=== PATIENT | female | born 1960 | race Caucasian/White ===

== ENCOUNTER 2016-11-16 15:08 | Emergency (ER) | payer OTHER | END 2016-11-16 16:30 | disposition home or self-care (01) | DX: S20.212A Contusion of left front wall of thorax, initial encounter (principal); W01.0XXA Fall on same level from slipping, tripping and stumbling without subsequent striking against object, initial encounter; E11.9 Type 2 diabetes mellitus without complications; Z87.891 Personal history of nicotine dependence ==

== ENCOUNTER 2017-09-16 11:13 | Day surgery (SDC) | payer MEDICARE, OTHER ==
[2017-09-16] MEDS ORDERED: LACTATED RINGERS 1,000 ML IV ONE ×2 (13:15→13:43)
[2017-09-16] MEDS ORDERED: BENZOCAINE/TETRACAINE/BUTAMBEN SPRAY 56 GM TOP ONE (13:28)
[2017-09-16] MEDS ORDERED: fentaNYL 100 MCG/2 ML VIAL IVP ONE (13:43)
[2017-09-16] MEDS ORDERED: MIDAZOLAM 2 MG/2 ML VIAL IVP ONE (13:43)
[2017-09-16 15:19] VITALS: BP 132/87
== END 2017-09-16 11:14 | disposition home or self-care (01) ==
LOC: SDS 11:13
PROVIDERS: ATTEND Surgery
PROC: 0DB68ZX Excision of Stomach, Via Natural or Artificial Opening Endoscopic, Diagnostic (ICD-10-PCS; principal; 2017-09-16 12:30)
PROC: 0DJD8ZZ Inspection of Lower Intestinal Tract, Via Natural or Artificial Opening Endoscopic (ICD-10-PCS; 2017-09-16 12:30)
DX: R13.10 Dysphagia, unspecified (principal); Z12.11 Encounter for screening for malignant neoplasm of colon; K64.8 Other hemorrhoids; Z98.84 Bariatric surgery status; Z87.891 Personal history of nicotine dependence; K21.9 Gastro-esophageal reflux disease without esophagitis
CPT/HCPCS: 43239; A9270; G0121; J7120

== ENCOUNTER 2017-09-21 10:40 | Outpatient (CLI) | payer MEDICARE, OTHER ==
--- NOTE | 2017-09-21 17:43 | Nuclear Medicine Report ---
EXAM: GASTRIC EMPTYING STUDY EXAM DATE: 09/21/2017 03:59 PM. CLINICAL HISTORY: Dysphagia. COMPARISON: None. TECHNIQUE: A standard meal was radiolabeled with 1 mCi Tc-99m sulfur colloid according to protocol. F ollowing the p.o. administration of this meal, the patient underwent multiple static images over the abdomen from the anterior and posterior AMHARIC projections, at approximately 0, 1, 2, and 4 hours follow ing the ingestion of the meal. Region of interest analysis was employed, and percent emptied/percent remaining of the meal was calculated using both the geometric mean and decay corrections. FINDINGS: Calculations demonstrate: TIME (hours) Percent remaining. Normal values for percent remaining. 1 hour: 42.8% (30-90%) 2 hours: 29.2% (0-60%) 4 hours: 14% (0-10%) IMPRESSION: No scintigraphic evidence of delayed gastric emptying on 1 and 2 hour imaging. Mild to mi nimal delayed gastric emptying at 4 hours. [facility] Referring Provider Line: [phone] SITE ID: [id number]
== END 2017-09-21 10:41 | disposition home or self-care (01) ==
LOC: DI 10:40
PROVIDERS: ATTEND Surgery
DX: R13.10 Dysphagia, unspecified (principal)
CPT/HCPCS: 78265; A9541

== ENCOUNTER 2018-10-14 10:24 | Emergency (ER) | payer MEDICARE, OTHER ==
[2018-10-14 10:55] LABS: BILIRUBIN,URINE NEGATIVE (NEGATIVE); GLUCOSE, URINE (UA) NEGATIVE (NEGATIVE); KETONES,URINE (UA) TRACE mg/dL (NEGATIVE); LEUKOCYTE ESTERASE, URINE NEGATIVE (NEGATIVE); NITRITE,URINE POSITIVE (NEGATIVE); OCCULT BLOOD,URINE TRACE-INTA (NEGATIVE); PH,URINE 5.5 PH (5.0-7.5); PROTEIN,URINE 30 mg/dL (NEGATIVE); UROBILINOGEN,URINE 0.2 (NORMAL) E.U./dL (NORMAL)
[2018-10-14 11:00] LABS: CLARITY,URINE CLOUDY (CLEAR)
[2018-10-14 11:05] LABS: BACTERIA,URINE Moderate /HPF (None Seen); SQUAMOUS EPITHELIAL CELL,UR FEW Squamous (<= Few)
[2018-10-14] MEDS ORDERED: ONDANSETRON ODT 4 MG TABLET TL STA (11:23)
[2018-10-14] MEDS ORDERED: PHENAZOPYRIDINE 100 MG TABLET PO STA (11:23)
--- NOTE | 2018-10-14 11:26 | ED Physician Documentation ---
PD HPI ABD PAIN - Stated complaint Stated Complaint: RT SIDE PAIN - Chief complaint Chief Complaint: General - History obtained from History obtained from: Patient - History of Present Illness Timing - onset: How many days ago (2) Timing - duration: Days (2) Timing - details: Still present Quality: Aching Location: All over / everywhere Associated symptoms: Nausea. No: Vomiting - Additional information Additional information: The patient is a 58-year-old female with a history of type II diabetes, and S/P gastric bypass in 2011, who presents with abdominal pain that started 2 days ago and continues today. She reports right-sided abdominal pain, with nausea and an acid taste in her mouth, but no vomiting. She also reports sore throat. She had a headache last night for which she took Fioricet. She does not have a headache today. She denies fever, cough, or dysuria. She reports that her urine was very dark in color this morning. Review of Systems Constitutional: denies: Fever, Chills Ears: denies: Tinnitus/ringing Nose: denies: Congestion Throat: reports: Sore throat Cardiac: denies: Chest pain / pressure, Palpitations Respiratory: denies: Dyspnea, Cough GI: reports: Abdominal Pain, Nausea. denies: Vomiting, Diarrhea : reports: Other (Dark-colored urine.). 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 09/16/15 09/16/17 DULoxetine [Cymbalta] 20 mg PO DAILY 10/20/15 09/16/17 Butalbital/Aspirin/Caffeine 1 each PO DAILY PRN 09/15/17 09/16/17 [Fiorinal 50-325-40 mg Capsule] Potassium Gluconate 99 mg PO DAILY 09/15/17 09/16/17 clonazePAM [Clonazepam] 1 mg PO BID 09/15/17 09/16/17 Olopatadine HCl 1 drops EACHEYE PRN PRN 09/16/17 09/16/17 Promethazine [Phenergan] 25 mg PO PRN PRN 09/16/17 09/16/17 Varenicline Tartrate [Chantix] 1 mg PO BID 09/16/17 09/16/17 Nitrofurantoin Monohyd/M-Cryst 100 mg PO BID #10 capsule 10/14/18 [Macrobid 100 mg Capsule] Phenazopyridine HCl [Pyridium] 200 mg PO TID PRN #6 tablet 10/14/18 - Allergies Allergies/Adverse Reactions: Allergies Allergy/AdvReac Type Severity Reaction Status Date / Time lisinopril Allergy cough Verified 09/15/17 13:51 ramipril Allergy Respiratory Verified 09/15/17 13:51 sumatriptan [From Imitrex] Allergy high bp Verified 09/15/17 13:51 sumatriptan succinate * Allergy high bp Verified 09/15/17 13:51 [From Imitrex] codeine AdvReac Nausea Verified 09/15/17 13:51 - Social History Does the pt smoke?: No Smoking Status: Former smoker Does the pt drink ETOH?: No Does the pt have substance abuse?: No - Immunizations Immunizations are current?: Yes PD ED PE NORMAL - Vitals Vital signs reviewed: Yes (Normal) - General General: Alert and oriented X 3, Well developed/nourished - HEENT HEENT: Atraumatic, Pharynx benign, Other (Edentulous.) - Neck Neck: Supple, no meningeal sign, No adenopathy - Cardiac Cardiac: RRR, No murmur - Respiratory Respiratory: No respiratory distress, Clear bilaterally - Abdomen Abdomen: Soft, Other (Mild tenderness to palpation in both the epigastric region and the suprapubic region, without rebound or guarding.) - Back Back: No CVA TTP - Derm Derm: No rash - Extremities Extremities: No edema, No calf tenderness / cord - Neuro Neuro: Alert and oriented X 3, No motor deficit, Normal speech Results - Vitals Vitals: Oxygen O2 Source [With Activity] Room air O2 Source [Without Activity] Room air O2 Source Room air - Labs Labs: Microbiology 10/14/18 10:38 Urine Culture - Preliminary Urine,Random Escherichia Coli Laboratory Tests 10/14/18 10/14/18 10/14/18 10:38 11:33 11:33 WBC 4.4 L RBC 4.19 L Hgb 11.5 L Hct 34.9 L MCV 83.1 MCH 27.5 MCHC 33.1 RDW 15.3 H Plt Count 252 MPV 7.6 L Neut # (Auto) 3.4 Lymph # (Auto) 0.7 L [place] # (Auto) 0.3 Eos # (Auto) 0.0 Baso # (Auto) 0.0 Absolute Nucleated RBC 0.00 Nucleated RBC % 0.0 Sodium 137 Potassium 3.4 L Chloride 101 Carbon Dioxide 26 Anion Gap 10.0 BUN 14 Creatinine 0.9 Estimated GFR (MDRD) 64 L Glucose 116 H Calcium 8.2 L Total Bilirubin 0.6 AST 73 H ALT 30 Alkaline Phosphatase 110 Total Protein 6.1 L Albumin 2.9 L Globulin 3.2 Albumin/Globulin Ratio 0.9 L Lipase 24 Urine Color DARK YELLOW Urine Clarity CLOUDY Urine pH 5.5 Ur Specific [place] >=1.030 H Urine Protein 30 H Urine Glucose (UA) NEGATIVE Urine Ketones TRACE Urine Occult Blood TRACE-INTA Urine Nitrite POSITIVE H Urine Bilirubin NEGATIVE Urine Urobilinogen 0.2 (NORMAL) Ur Leukocyte Esterase NEGATIVE Urine RBC 6-10 H Urine WBC >25 H Ur Squamous Epith Cells FEW Squamous Urine Bacteria Moderate H Ur Microscopic Review INDICATED Urine Culture Comments INDICATED PD MEDICAL DECISION MAKING - ED course Complexity details: reviewed results, re-evaluated patient, considered differential, d/w patient ED course: The patient's presentation is most consistent with acute urinary tract infection, with a positive urinalysis. Culture and sensitivity are pending. Her presentation does not suggest pyelonephritis or sepsis. In addition, she has symptoms suggestive of gastroesophageal reflux disease. Treatment in the emergency department included administration of Pyridium 100 mg orally, ondansetron 4 mg sublingually, and GI cocktail. Her epigastric symptoms improved with the above treatment. She is being discharged with prescriptions for nitrofurantoin and Pyridium. I discussed with her the expected course of illness, antibiotic treatment and outpatient follow-up, as well as potentially worrisome signs or symptoms that should prompt reevaluation in the emergency department. Departure - Departure Disposition: 01 Home, Self Care Clinical Impression: Urinary tract infection Qualifiers: Urinary tract infection type: acute cystitis Hematuria presence: without hematuria Qualified Code(s): N30.00 - Acute cystitis without hematuria Condition: Stable Instructions: ED UTI Cystitis Female Follow-Up: JAYLON WORTHINGTON MD [Primary Care Provider] - Prescriptions: Nitrofurantoin Monohyd/M-Cryst [Macrobid 100 mg Capsule] 100 mg PO BID #10 capsule Phenazopyridine HCl [Pyridium] 200 mg PO TID PRN #6 tablet PRN Reason: dysuria Comments: Drink plenty of fluids, including cranberry juice. Take Macrobid twice daily as prescribed. You can use Pyridium as prescribed if needed for painful urination. You can use Tylenol or ibuprofen as needed for fever or discomfort. Follow up with your primary physician within 2 weeks. Call to schedule appointment. Return to the emergency department if you develop increasing abdominal pain, fever with shaking chills, persistent vomiting, or otherwise worsening symptoms. Discharge Date/Time: 10/14/18 12:37
[2018-10-14] MEDS ORDERED: LIDOCAINE VISCOUS 2% 15 ML UDC MM STA (11:29)
[2018-10-14] MEDS ORDERED: MAG HYDROX/AL HYDROX/SIMETH 30 ML UDC PO STA (11:29)
[2018-10-14 11:40] LABS: BASOPHILS % (AUTO) 0.3 %; EOSINOPHILS % (AUTO) 0.4 %; HGB - HEMOGLOBIN 11.5 g/dL (12.0-16.0); LYMPHOCYTES # (AUTO) 0.7 10^3/uL (1.5-3.5); LYMPHOCYTES % (AUTO) 15.4 %; MEAN CORPUSCULAR HEMOGLOBIN 27.5 pg (27.0-31.0); MEAN CORPUSCULAR HGB CONC 33.1 g/dL (32.0-36.0); MEAN CORPUSCULAR VOLUME 83.1 fL (81.0-99.0); MEAN PLATELET VOLUME 7.6 fL (7.9-10.8); MONOCYTES # (AUTO) 0.3 10^3/uL (0.0-1.0); MONOCYTES % (AUTO) 5.9 %; NEUTROPHILS # (AUTO) 3.4 10^3/uL (1.5-6.6); PLT - PLATELET COUNT 252 10^3/uL (130-450); RED BLOOD COUNT 4.19 10^6/uL (4.20-5.40); RED CELL DISTRIBUTION WIDTH 15.3 % (12.0-15.0); WHITE BLOOD COUNT 4.4 x10^3/uL (4.8-10.8)
[2018-10-14 11:54] LABS: ALBUMIN 2.9 g/dL (3.2-5.5); ALBUMIN/GLOBULIN RATIO 0.9 (1.0-2.2); BILIRUBIN,TOTAL 0.6 mg/dL (0.2-1.0); CALCIUM 8.2 mg/dL (8.5-10.3); CREATININE 0.9 mg/dL (0.4-1.0); TOTAL PROTEIN 6.1 g/dL (6.7-8.2)
[2018-10-14 12:38] VITALS: BP 97/79
== END 2018-10-14 12:37 | disposition home or self-care (01) ==
LOC: ED 10:24
DX: N30.00 Acute cystitis without hematuria (principal); E11.9 Type 2 diabetes mellitus without complications; E78.00 Pure hypercholesterolemia, unspecified; Z87.891 Personal history of nicotine dependence
CPT/HCPCS: 36415; 80053; 81001; 83690; 85025; 87086; 87181; 99283; A9270; Q0162; 81003

== ENCOUNTER 2018-12-15 13:42 | Outpatient (CLI) | payer MEDICARE, OTHER | END 2018-12-15 13:43 | disposition home or self-care (01) | LOC: SC 13:42 | PROVIDERS: ATTEND Nurse Practitioner Family | DX: G47.33 Obstructive sleep apnea (adult) (pediatric) (principal); G25.81 Restless legs syndrome | CPT/HCPCS: 99204; G0463; 99212 ==

== ENCOUNTER 2019-01-13 19:32 | Outpatient (CLI) | payer MEDICARE, OTHER | END 2019-01-13 19:33 | disposition home or self-care (01) | LOC: SC 19:32 | PROVIDERS: ATTEND Internal Medicine Pulmonary Disease | DX: G47.61 Periodic limb movement disorder (principal) | CPT/HCPCS: 95810 ==

== ENCOUNTER 2019-03-06 10:21 | Outpatient (CLI) | payer MEDICARE, OTHER | END 2019-03-06 10:22 | disposition home or self-care (01) | LOC: DI 10:21 | PROVIDERS: ATTEND Family Medicine | DX: R60.0 Localized edema (principal) | CPT/HCPCS: 93306 ==

== ENCOUNTER 2019-03-20 11:31 | Outpatient (CLI) | payer MEDICARE, OTHER ==
--- NOTE | 2019-03-20 12:35 | SLEEP CARE CONSULTATION ---
Information from patient questionnaire entered by Isatu Leahy. I have reviewed and concur with the information entered by Isatu Leahy. This document represents the service I personally performed and the decisions made by me, Alvina Luna RN, MSN, REEL HOOKER. - History of Present Illness AMANDA EASON returns for follow up of the recently performed polysomnography. Review of past visit reflects she was advised to follow up with PCP for further evaluation of cause of her restless leg symptoms such as iron deficiency anemia and had lab studies and placed on iron for a month with reduction of symptoms. The patient was informed of the following polysomnography findings:The quality of the study is good. The patient had reduced sleep efficiency due to several awakenings after the sleep onset.. The sleep architecture was otherwise relatively normal considering the first-night effect Respiratory monitoring showed no significant sleep disordered breathing (AHI = 0.4) or hypoxia (marty oxygen saturation of 92%). The patient slept adequately in supine position (supine AHI = 0.0; non-supine = 0.42). Snore was infrequent and light in intensity. There was moderate periodic leg movement of sleep not associated with sleep fragmentation. Cardiac rhythm was normal sinus rhythm without significant arrhythmia. No abnormal behavior (parasomnia) observed during the night I explained the pathophysiology behind obstructive sleep apnea. Patient does not have sleep apnea and was advised how weight gain could increase the risk of developing sleep apnea in the future. I strongly encouraged the patient to lose weight. Her recent weight gain was from her enjoyment of food with new dentures. She has plans on losing the recently gained 18 pounds. The rich food will be reduced. Patient has only infrequent and light snoring. Snoring can be reduced by weight loss. Weight loss is best achieved with diet consult. 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 Snoring can also be treated with an oral appliance from a dentist but she uses dentures so is not an option. In addition, an ENT evaluation can be done to see if other treatment is indicated.Thus patient advised to consider if still snores at optimal weight goal. AAS patient education on snoring and sleep apnea given and reviewed. Patient counseled not drink alcohol less than 4 hours before bedtime as it can increase snoring and apnea. Patient does not drink alcohol. Patient was cautioned about risks of drowsy driving until sleepiness symptoms resolve. Patient denies drowsy driving. In review of her sleep habits, she feels she sleeps well with use of Ambien and her sleep schedule is regular. But when she is dog sitting that can squew her sleep schedule. If she takes her Ambien later than 8:15pm for 9pm bedtime, she will oversleep. She has insomnia about 1-2 times a month due to things on her mind. Initial [place] Sleepiness Scale score: 13 Current [place] Sleepiness Scale score: 11 - Allergies/Medications Medication Name (generic/name brand) Strength & Dosage Baclofen 10mg tab one twice daily Fioricet 325mg tab one as needed for migraines Ambien 10mg tab one daily at bedtime Chantix 1mg tab 1-2 daily for smoking cessation Cymbalta 30mg tab one daily Phenergen 25mg tab one twice daily Clonazepam 1mg tab one twice daily Seroquel 50mg tab one daily at bedtime Folic Acid 1mg tab one twice Aciphex 20mg tab one twice daily Docusate Calcium 240mg tab one daily Ferrous Sulfate 324mg tab one daily Multivitamin Softgel 6 per day Youtheory Collagen Advance Formula Type 6,000mg per day Potassium & Magnesium Aspartate 250mg tab one daily Tylenol Extra Strength As needed No known drug allergies: Yes (lisinopril, ramipril, imitrex, codeine) Allergies and home medications reviewed: Yes - Review of Systems Cardiovascular: reports: leg or foot swelling (edema noted in right leg from knee down and ultrasound of heart ordered with results pending.) Ear/Nose/Throat: reports: nasal congestion (nasal congestion while vacationing only. ), other (new dentures obtained and pateint weight increased with diet increase) - Physical Exam Heart Rate: 90 O2 Saturation: 98 Height: 5 ft 5.5 in Weight (kg): 76.204 kg Body Mass Index: 27.5 BMI Classification: Overweight - Impression 1. Snoring but no significant sleep disordered breathing. Patient advised that often weight loss will reduce snoring as well as apnea risk. An oral appliance can also be used for snoring but because patient has dentures, this is not an option. Since she is planning on losing weight, then she was advised to consider an ENT consult if snoring persists after weight gain to determine if any other treatment is an option. 2. Periodic limb movement, moderate, that did not fragment patients sleep. Norma odic limb movement of sleep (PLMS) is characterized by episodes of repetitive limb movements that occur during sleep and usually involve the lower limbs. The etiology is unknown but can be associated with restless leg syndrome (RLS), neuropathy, spinal cord diseases, kidney disease, rheumatological disorders, narcolepsy, obstructive sleep apnea, and REM sleep behavior disorder. Other factors that can increase PLMS and/or RLS are heredity and iron deficiency as reflected by a low serum ferritin level below 50 to 75mcg / L. Several medications can precipitate or aggravate PLMS such as selective serotonin re- uptake inhibitor antidepressants, tricyclic antidepressants, lithium, and dopamine receptor antagonists with the exception of bupropion. Caffeine can also aggravate PLMS and should be avoided. Sleep hygiene methods can also improve sleep as well as lifestyle changes such as regular exercise. Patient was advised to again follow up with her PCP for further evaluation of her anemia. In the past she was treated for anemia and her RLS were reduced. Patient agreed with plan 3. Insomnia, that appears to be due to things on her mind. She is working with a psychiatrist for her anxiety/depression/bipolar disorder who has prescribed her Ambien to assist with sleep. However, when she dog sits, her sleep schedule can be delayed and will take her Ambien later and then has problems sleeping in. She was advised to consider taking a 1/2 pill at these times only after discussing with her psychiatrist who ordered her medication increase to 10mg a while ago. She reports insomnia about 1-2 times a month due to things on mind. Thus she is advised to write out concerns as a release when this occurs and go back to her relaxing ritual until sleepy. Some people journal before bed when anxious as a release. This process can be repeated as often as necessary to associate the bed with sleep. - Plan Follow up with PCP for further evaluation and treatment of anemia as indicated above Follow up with psychiatrist in regard to Ambien dosage when dog sitting. Implement methods to reduce insomnia discussed. Attempt to lose weight. consider ENT consult if snoring persists Avoid alcohol consumption near bedtime. The patient is again cautioned about driving until sleepiness completely resolves. Return as needed I spent 100% of this 40 minute visit face to face with the patient with greater than 50% of this was spent time counseling the patient and coordination of care.
== END 2019-03-20 11:32 | disposition home or self-care (01) ==
LOC: SC 11:31
PROVIDERS: ATTEND Nurse Practitioner Family
DX: G47.61 Periodic limb movement disorder (principal); R06.83 Snoring
CPT/HCPCS: 99215; G0463; 99212

== ENCOUNTER 2020-10-15 16:20 | Emergency (ER) | payer MEDICARE, OTHER ==
[2020-10-15 16:58] LABS: BASOPHILS % (AUTO) 0.4 %; EOSINOPHILS # (AUTO) 0.1 10^3/uL (0.0-0.7); EOSINOPHILS % (AUTO) 2.4 %; HGB - HEMOGLOBIN 11.1 g/dL (12.0-16.0); LYMPHOCYTES # (AUTO) 2.5 10^3/uL (1.5-3.5); LYMPHOCYTES % (AUTO) 45.8 %; MEAN CORPUSCULAR HEMOGLOBIN 26.4 pg (27.0-31.0); MEAN CORPUSCULAR HGB CONC 31.2 g/dL (32.0-36.0); MEAN CORPUSCULAR VOLUME 84.8 fL (81.0-99.0); MEAN PLATELET VOLUME 9.6 fL (7.9-10.8); MONOCYTES # (AUTO) 0.4 10^3/uL (0.0-1.0); MONOCYTES % (AUTO) 7.1 %; NEUTROPHILS # (AUTO) 2.4 10^3/uL (1.5-6.6); NEUTROPHILS % (AUTO) 44.1 %; PLT - PLATELET COUNT 293 10^3/uL (130-450); RED CELL DISTRIBUTION WIDTH 16.6 % (12.0-15.0); WHITE BLOOD COUNT 5.4 x10^3/uL (4.8-10.8)
[2020-10-15 17:08] LABS: ALBUMIN 3.2 g/dL (3.2-5.5); BILIRUBIN,TOTAL 0.6 mg/dL (0.2-1.0); CALCIUM 8.5 mg/dL (8.5-10.3); CREATININE 0.9 mg/dL (0.4-1.0); TOTAL PROTEIN 6.3 g/dL (6.7-8.2)
--- NOTE | 2020-10-15 17:19 | ED Physician Documentation ---
History of Present Illness - Stated complaint Stated Complaint: AMS, SENT BY PCP - Chief complaint Chief Complaint: Neuro - Additonal information Additional information: 60-year-old female is sent to the emergency department by her primary care provider to evaluate approximately 3 months of memory changes and forgetfulness. Patient and report that she often gets lost in conversation and will quickly forget simple tasks that she was about to attempt to perform. She denies any falls or trauma. She states a few months ago she was walking and felt like her legs were suddenly weak and gave out under her. However since then no focal neuro changes no arm or leg weakness no droopy face or slurred speech. She does have a longstanding history of migraines as well as depression and anxiety and takes multiple psychiatric medicines that include clonazepam daily, Seroquel and bupropion. She denies alcohol but is a daily tobacco user. She also uses edible cannabis. Denies any history of hypertension or diabetes. Denies a family history of early onset dementia. Review of Systems Constitutional: denies: Fever, Chills Eyes: denies: Loss of vision, Decreased vision, Photophobia Nose: reports: Reviewed and negative Throat: reports: Reviewed and negative Cardiac: denies: Chest pain / pressure, Palpitations Respiratory: denies: Dyspnea, Cough GI: denies: Abdominal Pain, Nausea, Vomiting, Diarrhea : denies: Dysuria, Frequency, Hesitancy Skin: denies: Rash, Lesions, Abrasion (s) Musculoskeletal: denies: Neck pain, Back pain, Extremity pain Neurologic: reports: Confused. denies: Generalized weakness, Focal weakness, Numbness, Difficulty speaking, Near syncope, Syncope, Seizure, Unresponsive, Headache, Head injury, LOC Psychiatric: reports: Depressed, Anxiety Endocrine: denies: Polydypsia, Polyuria, Polyphagia PD PAST MEDICAL HISTORY - Past Medical History Past Medical History: Yes Cardiovascular: High cholesterol Respiratory: None Endocrine/Autoimmune: Type 2 diabetes GI: GERD, GI bleed, Ulcers, Colon polyps, Other PROGRAM MGR: None : None HEENT: None Psych: Depression, Anxiety Musculoskeletal: Osteoarthritis Derm: None - Past Surgical History Past Surgical History: Yes General: Cholecystectomy, Appendectomy, Gastric surgery /PROGRAM MGR: section Neuro: Other - Present Medications Home Medications: Ambulatory Orders Medication Instructions Recorded Confirmed Cyanocobalamin (Vitamin B-12) 1 drops PO DAILY 04/09/13 10/15/20 [Vitamin B-12] Zolpidem Tartrate [Ambien] 10 mg PO HS 04/09/13 10/15/20 Rabeprazole Sodium [Aciphex] 20 mg PO BID #14 tablet. 09/16/15 10/15/20 DULoxetine [Cymbalta] 30 mg PO DAILY 10/20/15 10/15/20 Butalbital/Aspirin/Caffeine 1 each PO DAILY PRN 09/15/17 10/15/20 [Fiorinal 50-325-40 mg Capsule] Potassium Gluconate 99 mg PO DAILY 09/15/17 10/15/20 clonazePAM [Clonazepam] 1 mg PO BID 09/15/17 10/15/20 Promethazine [Phenergan] 25 mg PO PRN PRN 09/16/17 10/15/20 Varenicline Tartrate [Chantix] 1 mg PO BID 09/16/17 10/15/20 Baclofen [Lioresal] 10 mg PO BID 10/15/20 10/15/20 Folic Acid 1 mg PO BID 10/15/20 10/15/20 Quetiapine Fumarate [Seroquel] 50 mg PO HS 10/15/20 10/15/20 - Allergies Allergies/Adverse Reactions: Allergies Allergy/AdvReac Type Severity Reaction Status Date / Time lisinopril Allergy cough Verified 10/15/20 16:23 ramipril Allergy Respiratory Verified 10/15/20 16:23 sumatriptan [From Imitrex] Allergy high bp Verified 10/15/20 16:23 sumatriptan succinate * Allergy high bp Verified 10/15/20 16:23 [From Imitrex] codeine AdvReac Nausea Verified 10/15/20 16:23 - Social History Does the pt smoke?: No Smoking Status: Never smoker Does the pt drink ETOH?: No Does the pt have substance abuse?: No - Immunizations Immunizations are current?: Yes PD ED PE EXPANDED - General General: Alert, No acute distress, Well developed/nourished - HEENT HEENT: Atraumatic, PERRL, EOMI, Dry mucous membranes - Eyes Eyes: PERRL, Normal accommodation - Neck Neck: Supple w/out meningeal sx. No: Adenopathy - Cardiac Cardiac: Regular Rate, Regular Rhythm, Radial strong equal, Pedal strong equal, Cap refill < 2 sec - Respiratory Respiratory: Clear to ausultation hammad. No: Distress, Labored - Abdomen Abdomen: Normal Bowel sounds. No: Tender to palpation - Back Back: Normal exam. No: Soft tissue tenderness - Derm Derm: Normal color, Warm and dry. No: Rash, Petecchiae, Purpura - Extremities Extremities: Normal. No: Deformity, Tenderness - Neuro Neuro: Alert and Oriented X 3, CNII-XII intact, Cerebellar nl, Normal gait, Normal finger nose, Normal speech, Other (Long and short-term memory appears preserved. She is slow to respond to some questions however she was oriented to person place and time. Oriented to recent events birthdate as well as anniversary.) - GCS Eye Opening: Spontaneous Motor: Obeys Commands Verbal: Oriented Total: 15 Results - Vitals Vitals: Vital Signs - 24 hr 10/15/20 10/15/20 16:24 16:42 Temperature 36.3 C L Heart Rate 89 91 Respiratory 18 24 Rate Blood Pressure 114/80 127/93 H O2 Saturation 99 100 Oxygen O2 Source [With Activity] Room air O2 Source [Without Activity] Room air O2 Source Room air - Labs Labs: Laboratory Tests 10/15/20 10/15/20 10/15/20 16:49 16:49 16:49 WBC 5.4 RBC 4.20 Hgb 11.1 L Hct 35.6 L MCV 84.8 MCH 26.4 L MCHC 31.2 L RDW 16.6 H Plt Count 293 MPV 9.6 Neut # (Auto) 2.4 Lymph # (Auto) 2.5 Wise # (Auto) 0.4 Eos # (Auto) 0.1 Baso # (Auto) 0.0 Absolute Nucleated RBC 0.00 Nucleated RBC % 0.0 Sodium 138 Potassium 2.9 L Chloride 102 Carbon Dioxide 25 Anion Gap 11.0 BUN 11 Creatinine 0.9 Estimated GFR (MDRD) 64 L Glucose 106 H Calcium 8.5 Total Bilirubin 0.6 AST 26 ALT 17 Alkaline Phosphatase 149 H Total Protein 6.3 L Albumin 3.2 Globulin 3.1 Albumin/Globulin Ratio 1.0 Lipase 23 TSH 1.13 Urine Color Urine Clarity Urine pH Ur Specific Clark Urine Protein Urine Glucose (UA) Urine Ketones Urine Occult Blood Urine Nitrite Urine Bilirubin Urine Urobilinogen Ur Leukocyte Esterase Ur Microscopic Review Urine Culture Comments Urine Opiates Screen Ur Oxycodone Screen Urine Methadone Screen Ur Propoxyphene Screen Ur Barbiturates Screen Ur Tricyclics Screen Ur Phencyclidine Scrn Ur Amphetamine Screen U Methamphetamines Scrn U Benzodiazepines Scrn Urine Cocaine Screen U Cannabinoids Screen 10/15/20 17:17 WBC RBC Hgb Hct MCV MCH MCHC RDW Plt Count MPV Neut # (Auto) Lymph # (Auto) Wise # (Auto) Eos # (Auto) Baso # (Auto) Absolute Nucleated RBC Nucleated RBC % Sodium Potassium Chloride Carbon Dioxide Anion Gap BUN Creatinine Estimated GFR (MDRD) Glucose Calcium Total Bilirubin AST ALT Alkaline Phosphatase Total Protein Albumin Globulin Albumin/Globulin Ratio Lipase TSH Urine Color YELLOW Urine Clarity CLEAR Urine pH 6.0 Ur Specific Clark 1.025 Urine Protein NEGATIVE Urine Glucose (UA) NEGATIVE Urine Ketones NEGATIVE Urine Occult Blood NEGATIVE Urine Nitrite NEGATIVE Urine Bilirubin NEGATIVE Urine Urobilinogen 0.2 (NORMAL) Ur Leukocyte Esterase NEGATIVE Ur Microscopic Review NOT INDICATED Urine Culture Comments NOT INDICATED Urine Opiates Screen NEGATIVE Ur Oxycodone Screen NEGATIVE Urine Methadone Screen NEGATIVE Ur Propoxyphene Screen NEGATIVE Ur Barbiturates Screen NEGATIVE Ur Tricyclics Screen POSITIVE H Ur Phencyclidine Scrn NEGATIVE Ur Amphetamine Screen NEGATIVE U Methamphetamines Scrn NEGATIVE U Benzodiazepines Scrn NEGATIVE Urine Cocaine Screen NEGATIVE U Cannabinoids Screen POSITIVE H - Rads (name of study) CT head Radiology: Final report received (no acute intracranial process) PD MEDICAL DECISION MAKING - ED course Complexity details: reviewed results, re-evaluated patient, considered differential, d/w patient ED course: 60-year-old female is sent to the emergency department by her primary care provider for evaluation of about 3 months worsening memory changes and forgetfulness. On exam she has no focal neuro deficits. Normal finger-nose, normal heel toe and a normal gait. A CT of her head was unremarkable. Unfortunately MRI is not available here today at [facility]. We did discuss that focally she does not appear to be having a stroke though a CT scan does not properly evaluate whether someone has had a stroke in the past though her symptomatology does not suggest that. Screening labs do show a mild anemia however that does not likely contribute to her memory changes. Electrolytes are essentially unremarkable with the exception of a potassium of 2.9. This was repleted with 40meq of K here in the emergency department. Patient is advised to follow-up her low potassium level with her primary that she is scheduled to see this Wednesday. Urine shows no signs of infection. no fevers or leukocytosis. Lower suspicion for infection. She is taking a number of psychiatric medications including benzodiazepines and antipsychotics. Her urine drug screen is positive for cannabis and tricyclic antidepressants and benzos. I discussed with the patient and her that long-term evaluation of her memory changes will likely require an MRI as well as referral to a neurologist or a neuropsychiatrist. Some of the answer may lie in medication adjustments. Emergent return precautions were discussed for focal neuro changes slurred speech facial droop. Pt will f/u with Dr. hardin 10/18/20 as scheduled Departure - Departure Disposition: 01 Home, Self Care Clinical Impression: Memory changes, Hypokalemia Anemia Qualifiers: Anemia type: unspecified type Qualified Code(s): D64.9 - Anemia, unspecified Condition: Stable Record reviewed to determine appropriate education?: Yes Comments: Sylwia you were seen in the emergency department for memory changes that have been getting progressively worse over the last [address] of your head was essentially normal. Your screening labs show a very mild anemia with a hemoglobin of 11.1. Your potassium was also low at 2.9. You were given oral potassium here in the emergency department and should be rechecked when you see your primary doctor in follow-up later this week. Your urine showed no signs of infection. As we discussed some of the memory changes may be a combination of the medications that you take for anxiety and depression. Early dementia is also a consideration. In follow-up your primary doctor will need to order an MRI of your brain. You may also need referral to a neurologist or a neuropsychiatrist to help further determine causes for your memory changes. If at any point you develop slurred speech, have facial droop or focal arm or leg weakness please return immediately to the emergency department
[2020-10-15 17:38] LABS: MUDS CUTOFF CONCENTRATIONS CUTOFF CONC BELOW:
[2020-10-15 17:41] LABS: BILIRUBIN,URINE NEGATIVE (NEGATIVE); CLARITY,URINE CLEAR (CLEAR); GLUCOSE, URINE (UA) NEGATIVE (NEGATIVE); KETONES,URINE (UA) NEGATIVE (NEGATIVE); LEUKOCYTE ESTERASE, URINE NEGATIVE (NEGATIVE); NITRITE,URINE NEGATIVE (NEGATIVE); OCCULT BLOOD,URINE NEGATIVE (NEGATIVE); PROTEIN,URINE NEGATIVE (NEGATIVE); UROBILINOGEN,URINE 0.2 (NORMAL) E.U./dL (NORMAL)
[2020-10-15 17:49] LABS: AMPHETAMINE SCREEN,URINE NEGATIVE (NEGATIVE); BENZODIAZEPINES SCREEN, URINE NEGATIVE (NEGATIVE); COCAINE SCREEN URINE NEGATIVE (NEGATIVE); METHADONE SCREEN, URINE NEGATIVE (NEGATIVE); METHAMPHETAMINES SCREEN, URINE NEGATIVE (NEGATIVE); OPIATE SCREEN, URINE NEGATIVE (NEGATIVE); OXYCODONE SCREEN, URINE NEGATIVE (NEGATIVE); PROPOXYPHENE SCREEN, URINE NEGATIVE (NEGATIVE); TRICYCLIC ANTIDEPRESSANT,URINE POSITIVE (NEGATIVE)
[2020-10-15] MEDS ORDERED: POTASSIUM CHLORIDE 20 MEQ TABLET PO STA (17:49)
--- NOTE | 2020-10-15 17:51 | CT Report ---
PROCEDURE: HEAD WO INDICATIONS: memory changes TECHNIQUE: Noncontrast 4.5 mm thick angled axial sections acquired from the foramen magnum to the vertex. For r adiation dose reduction, the following was used: automated exposure control, adjustment of mA and/or kV according to patient size. COMPARISON: 07/22/2015, 02/12/2015 FINDINGS: Image quality: Excellent. CSF spaces: Basal cisterns are patent. No extra-axial fluid collections. Ventricles are normal in size and shape. Brain: No midline shift. No intracranial masses or hemorrhage. Botello-white matter interface is norm al. Skull and face: Left-sided craniotomy changes are seen. Calvarium and visualized facial bones are int act, without suspicious lesions. Sinuses: Visualized sinuses and mastoids are clear. IMPRESSION: No significant intracranial abnormality is seen. Prior left-sided craniotomy changes are seen. Reviewed by: Reji Hummel MD on 10/15/2020 4:50 PM [place] Approved by: Reji Hummel MD on 10/15/2020 4:50 PM [facility] Station ID: [id number]
[2020-10-15 18:38] VITALS: BP 136/83
== END 2020-10-15 18:42 | disposition home or self-care (01) ==
LOC: ED 16:20
DX: R41.3 Other amnesia (principal); R41.0 Disorientation, unspecified; E87.6 Hypokalemia; F17.200 Nicotine dependence, unspecified, uncomplicated; E11.9 Type 2 diabetes mellitus without complications
CPT/HCPCS: 36415; 70450; 80053; 80306; 81003; 83690; 84443; 85025; 99284; A9270; 81001; 87086

== ENCOUNTER 2022-01-13 08:23 | Outpatient (CLI) | payer MEDICARE, OTHER ==
--- NOTE | 2022-01-13 09:17 | DEXA Report ---
PROCEDURE: Dexa Spine and/or Hip INDICATIONS: OSTEOPENIA TECHNIQUE: Dual energy x-ray absorptiometry (DXA) was performed on a [employer] System. Regions measur ed are the AP Spine, femoral neck, and if needed forearm. COMPARISON: 07/14/2016 FINDINGS: Lumbar Spine: Bone Mineral Density 0.906 g/cm/cm,T score -2.3, osteopenia Left Hip: Bone Mineral Density 0.638 g/cm/cm,T score -2.9, osteoporosis Left Femoral Neck: Bone Mineral Density 0.654 g/cm/cm, T score -2.8, osteoporosis (T score greater or equal to -1.0: NORMAL) (T score from -1.1 to -2.4: OSTEOPENIA) (T score less than or equal to -2.5 to: OSTEOPOROSIS) Impression: Osteoporosis. Patient is at high risk for fracture. Compared to the prior study, bone mineral density has decreased by 7.7% in the lumbar spine and decre ased approximately 21.8% in the hip. Patients with diagnosis of osteoporosis or osteopenia should have regular bone mineral density assess ment. For those eligible for Medicare, routine testing is allowed once every 2 years. Testing frequ ency can be increased for patients who have rapidly progressing disease or for those who are receivin g medical therapy to restore bone mass. Reviewed by: Jason Salazar MD on 01/13/2022 9:16 AM PDT Approved by: Jason Salazar MD on 01/13/2022 9:16 AM PDT Station ID: [id number]
== END 2022-01-13 08:24 | disposition home or self-care (01) ==
LOC: DI 08:23
PROVIDERS: ATTEND Physician Assistant
DX: M81.0 Age-related osteoporosis without current pathological fracture (principal)

== ENCOUNTER 2022-05-08 21:57 | Outpatient (CLI) | payer MEDICARE, OTHER | END 2022-05-08 21:58 | disposition critical access hospital (66) | LOC: EMS 21:57 | DX: R55 Syncope and collapse (principal); I95.9 Hypotension, unspecified | CPT/HCPCS: A0425; A0427 ==

== ENCOUNTER 2022-08-26 17:20 | Emergency (ER) | payer MEDICARE, OTHER ==
[2022-08-26 18:23] VITALS: BP 143/70
[2022-08-26] MEDS ORDERED: cephALEXin 250 MG CAPSULE PO STA (18:26)
--- NOTE | 2022-08-26 18:28 | ED Physician Documentation ---
PD HPI LOWER EXT INJURY - Stated complaint Stated Complaint: RT FT SWELLING - Chief complaint Chief Complaint: Ext Problem - History obtained from History obtained from: Patient - Additional information Additional information: 2 weeks of right lower extremity swelling which is painful especially at night or if her legs have been hanging. No fevers but she has a rash on the medial side of the right ankle. She thinks it cellulitis but went to see her doctor who referred her here for an ultrasound to rule out DVT. Did speak with her doctor, Dr. Daniels prior to arrival and an independent history was given from her. Review of Systems Constitutional: denies: Fever, Chills Throat: reports: Reviewed and negative Cardiac: reports: Reviewed and negative Respiratory: reports: Reviewed and negative PD PAST MEDICAL HISTORY - Past Medical History Cardiovascular: High cholesterol Respiratory: None Endocrine/Autoimmune: Type 2 diabetes GI: GERD, GI bleed, Ulcers, Colon polyps, Other USED CAR RENOVATOR: None : None HEENT: None Psych: Depression, Anxiety, Bipolar disorder Musculoskeletal: Osteoarthritis Derm: None - Past Surgical History Past Surgical History: Yes General: Cholecystectomy, Appendectomy, Gastric surgery /USED CAR RENOVATOR: section Neuro: Other - Present Medications Home Medications: Ambulatory Orders Medication Instructions Recorded Confirmed Cyanocobalamin (Vitamin B-12) 1 drops PO DAILY 04/09/13 10/15/20 [Vitamin B-12] Zolpidem Tartrate [Ambien] 10 mg PO HS 04/09/13 10/15/20 Rabeprazole Sodium [Aciphex] 20 mg PO BID #14 tablet. 09/16/15 10/15/20 DULoxetine [Cymbalta] 30 mg PO DAILY 10/20/15 10/15/20 Butalbital/Aspirin/Caffeine 1 each PO DAILY PRN 09/15/17 10/15/20 [Fiorinal 50-325-40 mg Capsule] Potassium Gluconate 99 mg PO DAILY 09/15/17 10/15/20 clonazePAM [Clonazepam] 1 mg PO BID 09/15/17 10/15/20 Promethazine [Phenergan] 25 mg PO PRN PRN 09/16/17 10/15/20 Varenicline Tartrate [Chantix] 1 mg PO BID 09/16/17 10/15/20 Baclofen [Lioresal] 10 mg PO BID 10/15/20 10/15/20 Folic Acid 1 mg PO BID 10/15/20 10/15/20 Quetiapine Fumarate [Seroquel] 50 mg PO HS 10/15/20 10/15/20 cephALEXin [Keflex] 500 mg PO Q6H #28 cap 08/26/22 - Allergies Allergies/Adverse Reactions: Allergies Allergy/AdvReac Type Severity Reaction Status Date / Time lisinopril Allergy cough Verified 08/26/22 17:42 ramipril Allergy Respiratory Verified 08/26/22 17:42 sumatriptan [From Imitrex] Allergy high bp Verified 08/26/22 17:42 sumatriptan succinate * Allergy high bp Verified 08/26/22 17:42 [From Imitrex] codeine AdvReac Nausea Verified 08/26/22 17:42 - Social History Does the pt smoke?: No Smoking Status: Never smoker Does the pt drink ETOH?: No Does the pt have substance abuse?: No - Immunizations Immunizations are current?: Yes PD ED PE NORMAL - Vitals Vital signs reviewed: Yes - General General: Alert and oriented X 3, No acute distress - Back Back: No CVA TTP, No spinal TTP - Extremities Extremities: Other (There is a small area of cellulitis about palm size on the medial side of the right ankle. No severe pain with range of motion of the ankle. There is some dependent edema of the right leg only.) - Neuro Neuro: Alert and oriented X 3, Normal speech Results - Vitals Vitals: Vital Signs - 24 hr 08/26/22 08/26/22 17:37 18:22 Temperature 36.8 C 98.4 C H Heart Rate 87 84 Respiratory 16 18 Rate Blood Pressure 127/97 H 143/70 H O2 Saturation 97 99 Oxygen O2 Source [With Activity] Room air O2 Source [Without Activity] Room air O2 Source Room air - Rads (name of study) DVT sono Radiology: Final report received, EMP read indepedently PD Medical Decision Making - ED course ED course: 62-year-old woman presents with what looks like cellulitis to the right ankle. Differential diagnosis also includes alternative source of rash and swelling and DVT. DVT ultrasound was done and negative. We will treat with Keflex pending follow-up. Departure - Departure Disposition: 01 Home, Self Care Clinical Impression: Cellulitis of right ankle Condition: Good Record reviewed to determine appropriate education?: Yes Instructions: Cellulitis Dc Prescriptions: cephALEXin [Keflex] 500 mg PO Q6H #28 cap Comments: Call your doctor to arrange a follow-up appointment, make the next available appointment. In the interim, return anytime if worse or if new symptoms develop.
--- NOTE | 2022-08-26 18:29 | Ultrasound Report ---
PROCEDURE: Duplex Ext Veins Right INDICATIONS: RLE swelling TECHNIQUE: Real-time imaging, as well as color and pulse Doppler interrogation, were performed of the lower extr emity deep veins from the inguinal ligament to the popliteal fossa. COMPARISON: None. FINDINGS: The deep veins are normally compressible, and free of intraluminal thrombus. Color and pu lse Doppler demonstrate normal phasic intraluminal flow. There is normal augmentation response to di stal compression maneuver. IMPRESSION: No DVT in the right lower extremity. Reviewed by: Omar Carlson on 08/26/2022 6:28 PM [facility] Approved by: Omar Carlson on 08/26/2022 6:28 PM [facility] Station ID: [id number]
== END 2022-08-26 18:33 | disposition home or self-care (01) ==
LOC: ED 17:20
DX: L03.115 Cellulitis of right lower limb (principal); E11.9 Type 2 diabetes mellitus without complications; Z79.84 Long term (current) use of oral hypoglycemic drugs
CPT/HCPCS: 93971; 99284; A9270

== ENCOUNTER 2023-02-24 12:03 | Emergency (ER) | payer MEDICARE, OTHER ==
[2023-02-24 12:23] VITALS: BP 145/114
--- NOTE | 2023-02-24 12:36 | ED Physician Documentation ---
PD HPI LOWER EXT INJURY - Stated complaint Stated Complaint: RT LEG SWELLING - Chief complaint Chief Complaint: Ext Problem - History obtained from History obtained from: Patient - Additional information Additional information: 63-year-old woman with history of cellulitis in the right ankle presents with 3 days of painful swelling consistent with prior episode of cellulitis that she had in August. At that time she had a negative DVT ultrasound and improved with Keflex. No fevers. PD PAST MEDICAL HISTORY - Past Medical History Cardiovascular: High cholesterol Respiratory: None Endocrine/Autoimmune: Type 2 diabetes GI: GERD, GI bleed, Ulcers, Colon polyps, Other LINGO CLEANER: None : None HEENT: None Psych: Depression, Anxiety, Bipolar disorder Musculoskeletal: Osteoarthritis Derm: None - Past Surgical History Past Surgical History: Yes General: Cholecystectomy, Appendectomy, Gastric surgery /LINGO CLEANER: section Neuro: Other - Present Medications Home Medications: Ambulatory Orders Medication Instructions Recorded Confirmed Cyanocobalamin (Vitamin B-12) 1 drops PO DAILY 04/09/13 10/15/20 [Vitamin B-12] Zolpidem Tartrate [Ambien] 10 mg PO HS 04/09/13 10/15/20 Rabeprazole Sodium [Aciphex] 20 mg PO BID #14 tablet. 09/16/15 10/15/20 DULoxetine [Cymbalta] 30 mg PO DAILY 10/20/15 10/15/20 Butalbital/Aspirin/Caffeine 1 each PO DAILY PRN 09/15/17 10/15/20 [Fiorinal 50-325-40 mg Capsule] Potassium Gluconate 99 mg PO DAILY 09/15/17 10/15/20 clonazePAM [Clonazepam] 1 mg PO BID 09/15/17 10/15/20 Promethazine [Phenergan] 25 mg PO PRN PRN 09/16/17 10/15/20 Varenicline Tartrate [Chantix] 1 mg PO BID 09/16/17 10/15/20 Baclofen [Lioresal] 10 mg PO BID 10/15/20 10/15/20 Folic Acid 1 mg PO BID 10/15/20 10/15/20 Quetiapine Fumarate [Seroquel] 50 mg PO HS 10/15/20 10/15/20 cephALEXin [Keflex] 500 mg PO Q6H #28 cap 08/26/22 cephALEXin [Keflex] 500 mg PO Q6H #40 cap 02/24/23 - Allergies Allergies/Adverse Reactions: Allergies Allergy/AdvReac Type Severity Reaction Status Date / Time lisinopril Allergy cough Verified 02/24/23 12:16 ramipril Allergy Respiratory Verified 02/24/23 12:16 sumatriptan [From Imitrex] Allergy high bp Verified 02/24/23 12:16 sumatriptan succinate * Allergy high bp Verified 02/24/23 12:16 [From Imitrex] codeine AdvReac Nausea Verified 02/24/23 12:16 - Social History Does the pt smoke?: No Smoking Status: Never smoker Does the pt drink ETOH?: No Does the pt have substance abuse?: No - Immunizations Immunizations are current?: Yes PD ED PE NORMAL - Vitals Vital signs reviewed: Yes - General General: Alert and oriented X 3, No acute distress - Extremities Extremities: Other (Mild tenderness swelling and redness to the right ankle. There is some edema of the calf.) - Neuro Neuro: Alert and oriented X 3, Normal speech Results - Vitals Vitals: Vital Signs - 24 hr 02/24/23 12:11 Temperature 36.4 C L Heart Rate 97 Respiratory 19 Rate Blood Pressure 145/114 H O2 Saturation 95 Oxygen O2 Source [With Activity] Room air O2 Source [Without Activity] Room air O2 Source Room air PD Medical Decision Making - ED course ED course: I offered and recommended ultrasonography noting though that this is a recurrent issue and previous work-ups for DVT were negative. She declined ultrasonography. Departure - Departure Disposition: 01 Home, Self Care Clinical Impression: Cellulitis Qualifiers: Site of cellulitis: extremity Site of cellulitis of extremity: lower extremity Laterality: right Qualified Code(s): L03.115 - Cellulitis of right lower limb Condition: Good Record reviewed to determine appropriate education?: Yes Instructions: Cellulitis Dc Prescriptions: cephALEXin [Keflex] 500 mg PO Q6H #40 cap Comments: I sent your prescription electronically to [facility] in [place]. Return for new or worsening symptoms or if you were to change her mind about the ultrasound of your right ankle. Certainly return if you develop fever, shortness of breath or chest pain.
== END 2023-02-24 12:35 | disposition home or self-care (01) ==
LOC: ED 12:03
DX: L03.115 Cellulitis of right lower limb (principal)
CPT/HCPCS: 99281; 99283

== ENCOUNTER 2023-07-19 13:29 | Emergency (ER) | payer MEDICARE, OTHER ==
[2023-07-19 14:40] LABS: BASOPHILS % (AUTO) 0.5 %; EOSINOPHILS # (AUTO) 0.1 10^3/uL (0.0-0.7); EOSINOPHILS % (AUTO) 1.1 %; HCT - HEMATOCRIT 37.4 % (37.0-47.0); HGB - HEMOGLOBIN 11.7 g/dL (12.0-16.0); LYMPHOCYTES # (AUTO) 3.4 10^3/uL (1.5-3.5); LYMPHOCYTES % (AUTO) 42.9 %; MEAN CORPUSCULAR HEMOGLOBIN 24.2 pg (27.0-31.0); MEAN CORPUSCULAR HGB CONC 31.3 g/dL (32.0-36.0); MEAN CORPUSCULAR VOLUME 77.4 fL (81.0-99.0); MEAN PLATELET VOLUME 9.1 fL (7.9-10.8); MONOCYTES # (AUTO) 0.4 10^3/uL (0.0-1.0); MONOCYTES % (AUTO) 5.3 %; NEUTROPHILS % (AUTO) 49.8 %; PLT - PLATELET COUNT 359 10^3/uL (130-450); RED BLOOD COUNT 4.83 10^6/uL (4.20-5.40); RED CELL DISTRIBUTION WIDTH 21.6 % (12.0-15.0); WHITE BLOOD COUNT 7.9 x10^3/uL (4.8-10.8)
[2023-07-19 14:46] LABS: SLIDE REVIEW? Indicated
[2023-07-19 14:58] LABS: ALBUMIN 3.3 g/dL (3.2-5.5); ALBUMIN/GLOBULIN RATIO 1.3 (1.0-2.2); BILIRUBIN,TOTAL 0.4 mg/dL (0.2-1.0); CALCIUM 9.3 mg/dL (8.5-10.3); CREATININE 1.2 mg/dL (0.6-1.3); POTASSIUM 3.2 mmol/L (3.5-4.5); TOTAL PROTEIN 5.9 g/dL (6.4-8.9)
[2023-07-19 15:05] LABS: PLATELET ESTIMATE, MANUAL NORMAL (130-450,000) (NORMAL); PLATELET MORPHOLOGY NORMAL APPEARANCE (NORMAL); RBC MORPHOLOGY (MULTIPLE) 1+ ANISOCYTOSIS (NORMAL); WBC MORPHOLOGY (MULTIPLE) NORMAL APPEARANCE (NORMAL)
[2023-07-19] MEDS ORDERED: POTASSIUM CHLOR 10 MEQ/100 ML 10 MEQ/100 ML BAG IV ONE (16:15)
[2023-07-19] MEDS ORDERED: LACTATED RINGERS 1,000 ML IV ONE (16:15)
[2023-07-19] MEDS ORDERED: SODIUM CHLORIDE 0.9% 1,000 ML IV STA (16:15)
--- NOTE | 2023-07-19 16:17 | ED Physician Documentation ---
History of Present Illness - Stated complaint Stated Complaint: GEN WEAKNESS - Chief complaint Chief Complaint: General - History obtained from History obtained from: Patient - Additonal information Additional information: 63-year-old woman with 15-year-old gastric bypass. She has had significant problems with a an area of stenosis at the prior anastomosis. To such an extent that a few years ago she actually had a feeding tube for about a year. She requires frequent endoscopies with dilatation and the last one was done 2 weeks ago. Despite that she has had difficulty keeping anything down and was noted to be orthostatic at her doctor's office last week. She tried to self administer oral fluids, water and Gatorade but feels still dizzy and woozy especially when she stands up. It sounds like her GI group is considering replacement of the PEG tube. 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 09/16/15 10/15/20 DULoxetine [Cymbalta] 30 mg PO DAILY 10/20/15 10/15/20 Butalbital/Aspirin/Caffeine 1 each PO DAILY PRN 09/15/17 10/15/20 [Fiorinal 50-325-40 mg Capsule] Potassium Gluconate 99 mg PO DAILY 09/15/17 10/15/20 clonazePAM [Clonazepam] 1 mg PO BID 09/15/17 10/15/20 Promethazine [Phenergan] 25 mg PO PRN PRN 09/16/17 10/15/20 Varenicline Tartrate [Chantix] 1 mg PO BID 09/16/17 10/15/20 Baclofen [Lioresal] 10 mg PO BID 10/15/20 10/15/20 Folic Acid 1 mg PO BID 10/15/20 10/15/20 Quetiapine Fumarate [Seroquel] 50 mg PO HS 10/15/20 10/15/20 cephALEXin [Keflex] 500 mg PO Q6H #28 cap 08/26/22 cephALEXin [Keflex] 500 mg PO Q6H #40 cap 02/24/23 - Allergies Allergies/Adverse Reactions: Allergies Allergy/AdvReac Type Severity Reaction Status Date / Time lisinopril Allergy cough Verified 07/19/23 14:22 ramipril Allergy Respiratory Verified 07/19/23 14:22 sumatriptan [From Imitrex] Allergy high bp Verified 07/19/23 14:22 sumatriptan succinate * Allergy high bp Verified 07/19/23 14:22 [From Imitrex] codeine AdvReac Nausea Verified 07/19/23 14:22 - Social History Does the pt smoke?: No Smoking Status: Never smoker Does the pt drink ETOH?: No Does the pt have substance abuse?: No - Immunizations Immunizations are current?: Yes PD ED PE NORMAL - Vitals Vital signs reviewed: Yes - General General: Alert and oriented X 3, No acute distress - Abdomen Abdomen: Normal bowel sounds, Soft, Non tender - Neuro Neuro: Alert and oriented X 3, Normal speech Results - Vitals Vitals: Vital Signs - 24 hr 07/19/23 07/19/23 14:16 16:40 Temperature 36.7 C Heart Rate 98 84 Respiratory 16 16 Rate Blood Pressure 128/78 135/90 H O2 Saturation 100 93 Oxygen O2 Source [With Activity] Room air O2 Source [Without Activity] Room air O2 Source Room air - Labs Labs: Laboratory Tests 07/19/23 07/19/23 07/19/23 14:36 14:36 17:22 WBC 7.9 RBC 4.83 Hgb 11.7 L Hct 37.4 MCV 77.4 L MCH 24.2 L MCHC 31.3 L RDW 21.6 H Plt Count 359 MPV 9.1 Neut # (Auto) 4.0 Lymph # (Auto) 3.4 [place] # (Auto) 0.4 Eos # (Auto) 0.1 Baso # (Auto) 0.0 Absolute Nucleated RBC 0.00 Nucleated RBC % 0.0 Manual Slide Review Indicated WBC Morphology NORMAL APPEARANCE Platelet Estimate NORMAL (130-450,000) Platelet Morphology NORMAL APPEARANCE RBC Morph Micro Appear 1+ ANISOCYTOSIS Sodium 134 L Potassium 3.2 L Chloride 98 L Carbon Dioxide 30 Anion Gap 6.0 BUN 12 Creatinine 1.2 Estimated GFR (MDRD) 45 L Glucose 95 Calcium 9.3 Total Bilirubin 0.4 AST 12 ALT 9 L Alkaline Phosphatase 110 Total Protein 5.9 L Albumin 3.3 Globulin 2.6 Albumin/Globulin Ratio 1.3 Lipase 15 Urine Color YELLOW Urine Clarity CLEAR Urine pH 6.0 Ur Specific [place] <=1.005 Urine Protein NEGATIVE Urine Glucose (UA) NEGATIVE Urine Ketones NEGATIVE Urine Occult Blood NEGATIVE Urine Nitrite NEGATIVE Urine Bilirubin NEGATIVE Urine Urobilinogen 0.2 (NORMAL) Ur Leukocyte Esterase NEGATIVE Ur Microscopic Review NOT INDICATED Urine Culture Comments NOT INDICATED PD Medical Decision Making - ED course ED course: 63-year-old woman with history of gastric bypass presents with orthostasis requesting IV fluids and 2 L of crystalloid were administered. She declined nausea medication. Review of her labs show mild anemia, no white count, low potassium which was repleted IV. Departure - Departure Disposition: 01 Home, Self Care Clinical Impression: Malnutrition compromising bodily function, Orthostasis Condition: Good Record reviewed to determine appropriate education?: Yes Instructions: ED Hypotension Orthostatic Comments: Follow-up with your GI for consideration for repeat endoscopy versus consideration for replacement of the feeding tube. Return for new or worsening symptoms. Forms: PCP List
[2023-07-19 16:41] VITALS: BP 135/90; O2SAT 93
[2023-07-19 17:33] LABS: BILIRUBIN,URINE NEGATIVE (NEGATIVE); GLUCOSE, URINE (UA) NEGATIVE (NEGATIVE); KETONES,URINE (UA) NEGATIVE (NEGATIVE); LEUKOCYTE ESTERASE, URINE NEGATIVE (NEGATIVE); NITRITE,URINE NEGATIVE (NEGATIVE); OCCULT BLOOD,URINE NEGATIVE (NEGATIVE); PROTEIN,URINE NEGATIVE (NEGATIVE); UROBILINOGEN,URINE 0.2 (NORMAL) E.U./dL (NORMAL)
[2023-07-19 17:35] LABS: CLARITY,URINE CLEAR (CLEAR)
== END 2023-07-19 17:50 | disposition home or self-care (01) ==
LOC: ED 13:29
DX: E46 Unspecified protein-calorie malnutrition (principal); Z68.22 Body mass index [BMI] 22.0-22.9, adult; E87.6 Hypokalemia
CPT/HCPCS: 36415; 80053; 81003; 83690; 85025; 96365; 99283; J7120; 81001; 87086

== ENCOUNTER 2023-08-02 19:24 | Outpatient (CLI) | payer MEDICARE, OTHER | END 2023-08-02 19:25 | disposition critical access hospital (66) | LOC: EMS 19:24 | DX: R53.1 Weakness (principal); R63.8 Other symptoms and signs concerning food and fluid intake; R41.0 Disorientation, unspecified; R47.81 Slurred speech; R27.8 Other lack of coordination | CPT/HCPCS: A0425; A0429 ==

== ENCOUNTER 2023-08-02 19:46 | Inpatient (IN) | payer MEDICARE, OTHER ==
--- NOTE | 2023-08-02 20:11 | ED Physician Documentation ---
History of Present Illness - Stated complaint Stated Complaint: NOT FEELING WELL - Chief complaint Chief Complaint: Neuro - History obtained from History obtained from: Patient, Family - Additonal information Additional information: BIBA. HPI is for patient spouse, in ED at patient's bedside. Patient is unable to contribute meaningfully to HPI due to AMS. Patient's says that since early this morning, he noticed that patient was exhibiting altered mental status. This AMS is manifesting as vague answers to questions that she previously (yesterday) was able to answer, articulately and accurately. Today, all day, she has been answering most questions with "I do not know", "I do not understand what you are asking". He says that she is answering a few questions with varying degrees of accuracy. She also was asking about her mother earlier tonight as if she were still alive even though patient's mother has been for a while. He also notices that since this early this morning, she appears to be "cross eyed" (per ). He says that she has told him a few times today that she "sees 2 of me". Lastly, concerning acute symptoms, notices that patient has been exhibiting twitching movements intermittently all day today of hands and feet. also says patient has been exhibiting generalized weakness, gradual onset but steadily worsening over the past week to the point that he has had to pick her up and carry her around to the bathroom today. Patient was treated and released from this emergency department a few weeks ago for drowns weakness, unremarkable workup and improved after IV fluids. notes that patient has had decreasing p.o. intake due to p.o. intake causing nausea and vomiting; this has been occurring over the past several months. He says patient has lost "at least 40 pounds over the past 3 and half months". She has an appointment this week to have an upper GI with plans to likely have a feeding tube placed. Regarding the acute symptoms noticed by spouse this morning ,last known normal (without AMS, occular/gaze abnormalities) was 20:30 last night. 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 09/16/15 08/03/23 Baclofen [Lioresal] 10 mg PO BID 10/15/20 08/03/23 Folic Acid 1 mg PO BID 10/15/20 08/03/23 Buspirone HCl 10 mg PO BID 08/03/23 08/03/23 DULoxetine [Cymbalta] 30 mg PO BID 08/03/23 08/03/23 Ondansetron HCl 4 mg PO Q8HR PRN 08/03/23 08/03/23 QUEtiapine [SEROquel] 50 mg PO QPM 08/03/23 08/03/23 Zolpidem [Ambien] 5 mg PO HS PRN 08/03/23 08/03/23 buPROPion HCL [Bupropion HCl Sr] 150 mg PO BID 08/03/23 08/03/23 - Allergies Allergies/Adverse Reactions: Allergies Allergy/AdvReac Type Severity Reaction Status Date / Time lisinopril Allergy cough Verified 08/03/23 02:23 ramipril Allergy Respiratory Verified 08/03/23 02:23 sumatriptan [From Imitrex] Allergy high bp Verified 08/03/23 02:23 sumatriptan succinate * Allergy high bp Verified 08/03/23 02:23 [From Imitrex] codeine AdvReac Nausea Verified 08/03/23 02:23 - Social History Does the pt smoke?: No Smoking Status: Never smoker Does the pt drink ETOH?: No Does the pt have substance abuse?: No - Immunizations Immunizations are current?: Yes PD ED PE NORMAL - Vitals Vital signs reviewed: Yes - General General: Other (awake, alert but disoriented) - Cardiac Cardiac: RRR, No murmur - Respiratory Respiratory: No respiratory distress, Clear bilaterally - Abdomen Abdomen: Normal bowel sounds, Soft, Non distended PD ED PE EXPANDED - General General: Alert, No acute distress - Neuro Neuro: Confused, Disoriented, Normal motor, Normal Sensation, CN deficit (bilateral CN palsy (neither eye deviates laterally past midline but both eyes are able to track midline to medial)) - GCS Eye Opening: Spontaneous Motor: Obeys Commands Verbal: Confused (year "2012") Total: 14 Results - Vitals Vitals: Vital Signs - 24 hr 08/02/23 08/02/23 08/02/23 19:51 20:33 22:00 Temperature 37.1 C Heart Rate 99 89 92 Respiratory 20 20 21 Rate Blood Pressure 134/95 H 143/90 H 162/85 H O2 Saturation 100 99 98 08/02/23 08/03/23 08/03/23 23:27 01:00 03:00 Temperature Heart Rate 87 89 88 Respiratory 18 17 22 Rate Blood Pressure 148/100 H 149/61 H 151/97 H O2 Saturation 100 100 98 08/03/23 08/03/23 05:00 07:00 Temperature Heart Rate 82 86 Respiratory 20 22 Rate Blood Pressure 149/87 H O2 Saturation 100 99 Oxygen O2 Source [] Room air O2 Source [] Room air O2 Source Room air - Labs Labs: Laboratory Tests 08/02/23 08/02/23 08/03/23 20:30 21:04 02:14 WBC 9.4 RBC 4.86 Hgb 12.0 Hct 37.5 MCV 77.2 L MCH 24.7 L MCHC 32.0 RDW 20.3 H Plt Count 293 MPV 10.0 Neut # (Auto) 6.8 H Lymph # (Auto) 2.1 [place] # (Auto) 0.5 Eos # (Auto) 0.0 Baso # (Auto) 0.0 Absolute Nucleated RBC 0.02 Nucleated RBC % 0.2 Manual Slide Review Indicated WBC Morphology NORMAL APPEARANCE Platelet Estimate NORMAL (130-450,000) Platelet Morphology NORMAL APPEARANCE RBC Morph Micro Appear 1+ MICROCYTOSIS Sodium 142 Potassium 2.9 L Chloride 100 L Carbon Dioxide 26 Anion Gap 16.0 H BUN 26 H Creatinine 1.0 Estimated GFR (MDRD) 56 L Glucose 94 Calcium 9.7 Phosphorus 3.6 Magnesium 1.8 Total Bilirubin 0.6 AST 16 ALT 13 Alkaline Phosphatase 92 Total Protein 6.2 L Albumin 3.5 Globulin 2.7 Albumin/Globulin Ratio 1.3 Lipase 35 Urine Color DARK YELLOW Urine Clarity CLEAR Urine pH 6.5 Ur Specific [place] 1.015 Urine Protein TRACE Urine Glucose (UA) NEGATIVE Urine Ketones 15 H Urine Occult Blood NEGATIVE Urine Nitrite NEGATIVE Urine Bilirubin NEGATIVE Urine Urobilinogen 1 (NORMAL) Ur Leukocyte Esterase NEGATIVE Ur Microscopic Review NOT INDICATED Urine Culture Comments NOT INDICATED Urine Opiates Screen NEGATIVE Ur Buprenorphine Scrn NEGATIVE Ur Oxycodone Screen NEGATIVE Urine Methadone Screen NEGATIVE Ur Barbiturates Screen NEGATIVE Ur Tricyclics Screen NEGATIVE Ur Phencyclidine Scrn NEGATIVE Ur Amphetamine Screen NEGATIVE U Methamphetamines Scrn NEGATIVE U Benzodiazepines Scrn NEGATIVE Urine Cocaine Screen NEGATIVE U Cannabinoids Screen POSITIVE H Ur Drug Screen Comment CUTOFF CONC BELOW: - Rads (name of study) CTH Relevant Findings:: Prelim report reviewed, See rad report CTA head Relevant Findings:: Prelim report reviewed, See rad report CTA neck Relevant Findings:: Prelim report reviewed, See rad report PD Medical Decision Making - ED course Complexity details: reviewed results, re-evaluated patient, considered differential, d/w patient (discussion of results was with in patient's room but patient does not seem to comprehend the diagnosis, test results, or admission/treatment plan), d/w family ED course: Patient presents with chronic (several months) of n/v with resulting poor PO intake, approximately 1 week of worsening generalized weakness, and acute onset (since morning of 08/02/23) of AMS and diplopia with bilateral CN palsy. CTH is unremarkable. CTA head and CTA neck are without diagnostic findings; radiologist notes "atherosclerosis with moderate narrowing of the intracranial/cavernous segments of the bilateral internal carotid arteries without high-grade stenosis. No evidence for occlusion, dissection, or aneurysm. Otherwise, negative CT angiogram of the intracranial and neck arterial vasculature." Note that in calculating the NIHSS, I gave patient 1 for ataxia but this was not effectively tested as patient did not understand instructions for heel/garza nor finger/nose despite multiple attempts and demonstration. No concerning nor diagnostic findings on CBC. ER abdominal panel is notable for elevated BUN (26) with normal creatinine (1.0), which is not surprising given reported poor PO intake. Hypokalemia also noted, but potassium of 2.9 would not explain signs/symptoms. She is given 10meq IV potassium in ED. UDS positive for cannabinoids only. UA normal except 15 ketones (also likely due to poor PO intake). dr Mckinney discussed this case with Dr. Shore (on-call neurology for [facility]). She says the HPI and exam findings are c/w Wernicke's encephalopathy (triad of encephalopathy, occulomotor dysfunction, and weakness/ataxia in setting of ongoing n/v and h/o gastric bypass). Patient's says patient does not drink alcohol and has no h/o heavy nor regular alcohol consumption. Dr. Shore recommends draw/send B1/thiamine level (will likely take a few days to result) and immediately afterwards initiating IV thiamine with dosing of 500mg IV TID x 3 days followed by 250mg IV or IM, then 100mg PO QD. I contacted telehealth for [facility]; he expresses reservation regarding admission to [facility] without neurology available in-hospital for consult. He also expresses concern regarding the scheduled upper GI study planned for later this week that was to lead to placement of feeding tube. I recontacted Dr. Shore for purposes of clarification. She says that from the neurology standpoint, patient can be admitted to [facility] to a general medical floor. Dr. Shore does not see the need/benefit for transfer to higher level of care at this time considering the high suspicion for a specific diagnosis (Wernicke's) that has a specific treatment which should result in significant improvement and which does not indicate need for/benefit from transfer to higher level of care. At the end of my shift, I discussed this case with Dr. Garvin (hospitalist at [facility]) who agrees patient would be appropriate for [facility] admission; this will be undertaken once beds become available. Departure - Departure Disposition: 66 [facility] DC/Xfer Clinical Impression: Ataxia, Hypokalemia AMS (altered mental status) Qualifiers: Altered mental status type: disorientation Qualified Code(s): R41.0 - Disorientation, unspecified Condition: Fair Forms: PCP List NIHSS - Time Time: 20:35 - Level of Consciousness Level of consciousness: (0) Alert, Keenly responsive LOC Questions: (1) Answers one Q correctly (name "Sylwia", asked last name says "Sylwia" (even when prompted twice)) LOC Commands: (0) Performs both correctly - Gaze Best Gaze: (1) Partial gaze palsy - Visual Visual: (0) No loss - Facial Palsy Facial Palsy: (0) Normal, symmetrical movement - Motor Arms (both separate) Motor Arm (right): (0) No drift Motor Arm (left): (0) No drift - Motor Legs (both separate) Motor Leg (right): (0) No drift Motor Leg (left): (0) No drift - Limb Ataxia Limb Ataxia: (1) Present in 1 limb (unable to test (repeated attempts but could not understand/follow instruction)) - Sensory Sensory: (0) Normal - Best Language Best Language: (1) [id number] - Dysarthria Dysarthria: (0) Normal - Extinction and Inattention (formally neg Extinction and inattention: (1) Visual,tactile,auditory,spatial, or personal inattention (when asked to read / name objects, frequently needs redirecting) - Total Score/Results Total Score/Result: 5
[2023-08-02 20:42] LABS: BASOPHILS % (AUTO) 0.1 %; EOSINOPHILS % (AUTO) 0.1 %; HCT - HEMATOCRIT 37.5 % (37.0-47.0); LYMPHOCYTES # (AUTO) 2.1 10^3/uL (1.5-3.5); LYMPHOCYTES % (AUTO) 22.2 %; MEAN CORPUSCULAR HEMOGLOBIN 24.7 pg (27.0-31.0); MEAN CORPUSCULAR VOLUME 77.2 fL (81.0-99.0); MONOCYTES # (AUTO) 0.5 10^3/uL (0.0-1.0); MONOCYTES % (AUTO) 5.1 %; NEUTROPHILS # (AUTO) 6.8 10^3/uL (1.5-6.6); NEUTROPHILS % (AUTO) 71.9 %; NRBC ABSOLUTE COUNT (AUTO) 0.02 x10^3/uL; NUCLEATED RED BLOOD CELLS AUTO 0.2 /100WBC; PLT - PLATELET COUNT 293 10^3/uL (130-450); RED BLOOD COUNT 4.86 10^6/uL (4.20-5.40); RED CELL DISTRIBUTION WIDTH 20.3 % (12.0-15.0); WHITE BLOOD COUNT 9.4 x10^3/uL (4.8-10.8)
[2023-08-02 20:46] LABS: SLIDE REVIEW? Indicated
[2023-08-02 21:07] LABS: PLATELET ESTIMATE, MANUAL NORMAL (130-450,000) (NORMAL); PLATELET MORPHOLOGY NORMAL APPEARANCE (NORMAL); WBC MORPHOLOGY (MULTIPLE) NORMAL APPEARANCE (NORMAL)
[2023-08-02 21:25] LABS: ALBUMIN 3.5 g/dL (3.2-5.5); MAGNESIUM 1.8 mg/dL (1.7-2.3); PHOSPHORUS 3.6 mg/dL (2.5-5.0)
[2023-08-02 21:27] LABS: ALBUMIN/GLOBULIN RATIO 1.3 (1.0-2.2); BILIRUBIN,TOTAL 0.6 mg/dL (0.2-1.0); CALCIUM 9.7 mg/dL (8.5-10.3); POTASSIUM 2.9 mmol/L (3.5-4.5); TOTAL PROTEIN 6.2 g/dL (6.4-8.9)
[2023-08-02] MEDS ORDERED: SODIUM CHLORIDE 0.9% 1,000 ML IV STA ×2 (21:50→23:12)
[2023-08-02] MEDS ORDERED: iohexoL-300 100 ML VIAL IVP ONE (22:47)
--- NOTE | 2023-08-02 23:33 | CT Report ---
PROCEDURE: HEAD WO INDICATIONS: CN deficit, AMS, generalized weakness TECHNIQUE: Noncontrast 4.5 mm thick angled axial sections acquired from the foramen magnum to the vertex. For r adiation dose reduction, the following was used: automated exposure control, adjustment of mA and/or kV according to patient size. COMPARISON: 05/08/2022. FINDINGS: Image quality: Excellent. CSF spaces: Basal cisterns are patent. No extra-axial fluid collections. Ventricles are normal in size and shape. Brain: No midline shift. No intracranial masses or hemorrhage. No mass effect. [place]-white matter i nterface is normal. There cerebral volume loss for age with resultant ventricular and sulcal prominen ce. There are periventricular and deep white matter chronic small vessel ischemic changes. Atheroscle rotic calcifications are noted in the intracranial segments of the bilateral internal carotid arterie s. 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 Skull and face: Calvarium and visualized facial bones are intact, without suspicious lesions. Stabl e postsurgical changes of the left calvarium. Sinuses: Visualized sinuses and mastoids are clear. IMPRESSION: CT head without acute intracranial abnormalities. Stable age-related senescent changes and sequela chronic small vessel ischemic disease. Reviewed by: Jason Sands MD on 08/02/2023 11:32 PM PST Approved by: Jason Sands MD on 08/02/2023 11:32 PM PST Station ID: [id number]
--- NOTE | 2023-08-02 23:46 | CT Report ---
PROCEDURE: CT Angio Head/Neck INDICATIONS: bilateral CN6 palsy, AMS, gen weakness TECHNIQUE: After the administration of intravenous contrast, 1 mm thick sections acquired from the aortic arch t hrough the [place] of [place]. 3-dimensional cratpua-ljmqrddrv-aqzfxjwffe (MIP) and/or volume renderin g reformats were acquired of the central intracranial vasculature and neck separately. For radiation dose reduction, the following was used: automated exposure control, adjustment of mA and/or kV acco rding to patient size. CONTRAST: Omnipaque, 80 mL COMPARISON: CT cervical spine dated 05/08/2022 FINDINGS: Image quality: Diagnostic. HEAD CT: CSF Spaces: Basal cisterns are patent. No extra-axial fluid collections. Ventricles are stable in size and shape. Brain: The brain is within normal limits for age and scanning technique. No abnormal enhancement. Skull and face: Calvarium and visualized facial bones appear intact, without suspicious lesions. Sinuses: Visualized sinuses and mastoids are clear. HEAD CT ANGIOGRAPHY: Anterior circulation: Intracranial internal carotid arteries are patent. Scattered bilateral intracr anial internal carotid artery segment atherosclerotic calcifications with moderate narrowing. No high -grade stenosis identified. No occlusion.. The flow within the paired anterior cerebral arteries yumi ear symmetric. The flow within the middle cerebral arteries is normal and symmetric. The anterior c ommunicating artery is seen. No aneurysms are seen. Posterior circulation: Visualized portions of the vertebral arteries demonstrate normal caliber, and join to form a normal appearing basilar artery. Flow within the posterior cerebral arteries is norm al and symmetric. No aneurysms are seen. NECK CT ANGIOGRAPHY: Carotid system: The great vessels demonstrate a conventional anatomy as they arise from the aortic a rch. The origins of the common carotid arteries appear patent. The common carotid arteries demonstr ate normal caliber and courses. The bifurcation regions are both widely patent. The internal caroti d arteries demonstrate normal calibers and courses. Posterior circulation: The origins of the vertebral arteries both appear widely patent. The more rubio perior extracranial portions of both vertebral arteries also demonstrate normal courses and calibers. They join to form a normal appearing basilar artery. Soft tissues: Visualized neck soft tissues demonstrate no suspicious abnormalities. Stable right ap ical scarring. Bones: No suspicious bony lesions. No acute fractures or dislocations. No acute compression fractu res of the vertebral bodies. Craniocervical junction is intact. C1-C2 relationship is preserved. Visu alized superior ribs are intact. Multilevel cervical spondylosis IMPRESSION: Atherosclerosis with moderate narrowing of the intracranial/cavernous segments of the bilateral inter nal carotid arteries without high-grade stenosis. No evidence for occlusion, dissection, or aneurysm. Otherwise, negative CT angiogram of the intracranial and neck arterial vasculature. If there is pers istent clinical concern for acute cerebral infarction/ischemia. Consider further evaluation with MRI. The estimate of stenosis included in the report of the imaging study was calculated using the NASCET method Reviewed by: Jason Salazar MD on 08/02/2023 11:45 PM PST Approved by: Jason Salazar MD on 08/02/2023 11:45 PM PST Station ID: [id number]
[2023-08-03] MEDS ORDERED: POTASSIUM CHLOR 10 MEQ/100 ML 10 MEQ/100 ML BAG IV STA (00:53)
[2023-08-03 02:22] LABS: GLUCOSE, URINE (UA) NEGATIVE (NEGATIVE); KETONES,URINE (UA) 15 mg/dL (NEGATIVE); LEUKOCYTE ESTERASE, URINE NEGATIVE (NEGATIVE); NITRITE,URINE NEGATIVE (NEGATIVE); OCCULT BLOOD,URINE NEGATIVE (NEGATIVE); PH,URINE 6.5 PH (5.0-7.5); PROTEIN,URINE TRACE mg/dL (NEGATIVE); UROBILINOGEN,URINE 1 (NORMAL) E.U./dL (NORMAL)
[2023-08-03 02:27] LABS: BILIRUBIN,URINE NEGATIVE (NEGATIVE); CLARITY,URINE CLEAR (CLEAR); ICTOTEST,URINE NEGATIVE
[2023-08-03 02:35] LABS: AMPHETAMINE SCREEN,URINE NEGATIVE (NEGATIVE); BARBITURATE SCREEN,UR NEGATIVE (NEGATIVE); BENZODIAZEPINES SCREEN, URINE NEGATIVE (NEGATIVE); BUPRENORPHINE SCREEN, URINE NEGATIVE (NEGATIVE); COCAINE SCREEN URINE NEGATIVE (NEGATIVE); METHADONE SCREEN, URINE NEGATIVE (NEGATIVE); METHAMPHETAMINES SCREEN, URINE NEGATIVE (NEGATIVE); OPIATE SCREEN, URINE NEGATIVE (NEGATIVE); OXYCODONE SCREEN, URINE NEGATIVE (NEGATIVE); THC CANNABINOID SCREEN, URINE POSITIVE (NEGATIVE); TRICYCLIC ANTIDEPRESSANT,URINE NEGATIVE (NEGATIVE)
[2023-08-03] MEDS ORDERED: THIAMINE 100 MG/1 ML 2 ML MDV ONE ×2 (02:41→02:59)
[2023-08-03] MEDS ORDERED: FOLIC ACID 5 MG/1 ML 10ML MDV ONE (02:41)
[2023-08-03] MEDS: THIAMINE INJ 100 MG, FOLIC ACID INJ 1 MG in SODIUM CHLORIDE 0.9% 1,000 ML IV STA ×2 (02:43→02:49)
[2023-08-03] MEDS ORDERED: THIAMINE INJ 500 MG in SODIUM CHLORIDE 0.9% 50 ML IV STA ×2 (02:49→02:51)
[2023-08-03] MEDS ORDERED: SODIUM CHLORIDE 0.9% 1,000 ML IV STA (07:46)
[2023-08-03] MEDS: THIAMINE INJ 500 MG in SODIUM CHLORIDE 0.9% 50 ML IV SCH ×3 (08:30→21:13)
[2023-08-03] MEDS ORDERED: SODIUM CHLORIDE FLUSH 0.9% 10 ML SYRINGE IVP PRN (12:32)
[2023-08-03] MEDS ORDERED: ONDANSETRON 4 MG/2 ML VIAL IVP PRN (12:32)
[2023-08-03] MEDS ORDERED: ONDANSETRON ODT 4 MG TABLET TL PRN (12:43)
--- NOTE | 2023-08-03 12:46 | HISTORY & PHYSICAL EXAMINATION ---
Chief Complaint - Chief Complaint Chief Complaint: "Cross eyed", weak and confused, per History of Present Illness - Admitted From Admitted From:: ED - History Obtained From History obtained from: ED provider and the at bedside - History of Present Illness HPI Comment/Other: This is a 63-year-old female who presents by ambulance. She has a history of gastric bypass surgery done ~2014 for obesity, then complications occurred with stenosis of an upper anastomosis. She has needed 7 esophageal dilatations over 8 years. She has had a PEG tube inserted in 2015 which was later removed about 2016. She has had poor nutrition for about 2 years, and on and off nausea and vomiting for many months with a 40 pound weight loss over the past 3 months. About 3 weeks ago, patient was seen in the emergency room here with complaints of nausea vomiting, her labs were normal, she received IV fluids and was discharged home. The reported that the patient is to undergo imaging of the upper abdomen in the next several days and may need reimplantation of a fee ding tube. According to the , the patient's last known well was 2 days ago (08/01/2023). Later that day she became weaker, confused and was less communicative, and he needed to lift her to take her to the bathroom. Prior to that she ambulated on her own, except did "furniture surfing". Today he noticed that her "eyes were crossed" and he called an ambulance. In the ER, she was found to have inability to follow directions, speaking with a word salad, and had noticeable 6th nerve palsy, since both eyes would not cross midline. She underwent CT imaging of the head which showed no abnormalities. 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 The Neurologist recommended sending off a Thiamine blood level, admission here, and gave details on how to dose thiamine to replace it aggressively, and also recommended an MRI scan be done, since the patient has a Hx of an intracranial mass. The ER provider then spoke to me about this case. She will be admitted to the Hospitalist service for managing her neurologic deficit which is felt to be Wernicke's encephalopathy from severe thiamine deficiency. History - Past Medical History Cardiovascular: reports: High cholesterol Respiratory: reports: None Neuro: reports: Other (Cerebral mass) Endocrine/Autoimmune: reports: Type 2 diabetes GI: reports: GERD, GI bleed, Ulcers, Colon polyps, Other UNDERWATER WELDER: reports: None : reports: None HEENT: reports: None Psych: reports: Depression, Anxiety, Bipolar disorder Musculoskeletal: reports: Osteoarthritis Derm: reports: None MRSA Hx?: No - Past Surgical History General: reports: Cholecystectomy, Appendectomy, Gastric surgery /UNDERWATER WELDER: reports: section Neuro: reports: Other (brain surg) - Family & Social History Living arrangement: At home Living Situation: With spouse/s.o. Social History Notes: She does not smoke cigarettes and does not drink alco=hol. For the past few days she has only sipped water. - Substance History Use: Uses substance without health or social issues: NONE Meds/Allgy - Home Medications Home Medications: Ambulatory Orders Medication Instructions Recorded Confirmed Rabeprazole Sodium [Aciphex] 20 mg PO BID #14 tablet. 09/16/15 08/03/23 Baclofen [Lioresal] 10 mg PO BID 10/15/20 08/03/23 Folic Acid 1 mg PO BID 10/15/20 08/03/23 Buspirone HCl 10 mg PO BID 08/03/23 08/03/23 DULoxetine [Cymbalta] 30 mg PO BID 08/03/23 08/03/23 Ondansetron HCl 4 mg PO Q8HR PRN 08/03/23 08/03/23 QUEtiapine [SEROquel] 25 mg PO QPM 08/03/23 08/04/23 Zolpidem [Ambien] 5 mg PO HS PRN 08/03/23 08/03/23 buPROPion HCL [Bupropion HCl Sr] 150 mg PO BID 08/03/23 08/03/23 - Allergies Allergies/Adverse Reactions: Allergies Allergy/AdvReac Type Severity Reaction Status Date / Time lisinopril Allergy cough Verified 08/03/23 02:23 ramipril Allergy Respiratory Verified 08/03/23 02:23 sumatriptan [From Imitrex] Allergy high bp Verified 08/03/23 02:23 sumatriptan succinate * Allergy high bp Verified 08/03/23 02:23 [From Imitrex] codeine AdvReac Nausea Verified 08/03/23 02:23 Review of Systems - Constitutional Constitutional: reports: Fatigue, Weakness, Poor appetite, Weight loss - Gastrointestinal Gastrointestinal: reports: Nausea, Vomiting, Poor appetite - Neurological Neurological: reports: General weakness, Abnormal gait, Slurred speech, Other (Eyes crossed) - All Other Systems All Other Systems: reports: Reviewed and negative Exam - Vital Signs Vital Signs: Vital Signs x48h Pulse Resp BP Pulse Ox 08/03/23 12:00 78 14 151/89 H 96 08/03/23 09:00 77 20 137/88 H 100 08/03/23 07:00 86 22 99 08/03/23 05:00 82 20 149/87 H 100 - Physical Exam General Appearance: positive: Mild distress (Starring wide-eyed. Answering only Yes and no.), Other (Disheveled, cachectic, eyes sunken) Eyes Bilateral: positive: Other (Sunken eyes) ENT: positive: Dry mucous membranes Neck: positive: Nml inspection, No JVD Respiratory: positive: No respiratory distress, Breath sounds nml Cardiovascular: positive: Regular rate & rhythm, No murmur Abdomen: positive: Non-tender, Nml bowel sounds, No distention Skin: positive: Warm, Dry Extremities: positive: Non-tender, No pedal edema Neurologic/Psychiatric: positive: Disoriented to person, Disoriented to place, Disoriented to time, Other (Cranial nerves intact. Answers with only 1-word answers. Moves all extrem. Able to swallow thru a straw.) Conclusion/Plan - Problem List (1) AMS (altered mental status) Conclusion/Plan: As per Neurol impression she has confusion and palsy from Thiamone deficit. She has received the firtst dose of iv Thiamine in the nER and already has slight improvement: can follow directions and cranial nerves are intact Plan: Cont Thiamine iv TID and other neurol advice Supportive care Will get PT and OT eval and tx Qualifiers: Altered mental status type: disorientation Qualified Code(s): R41.0 - Disorientation, unspecified (2) Ataxia Conclusion/Plan: As per Hx. Her gait was not evaluated by me. Plan: As in #1 (3) Prerenal azotemia Conclusion/Plan: Her labs show volume depletion, consistent with her recent Hx Plan: iv fluids in the form of PPN Avoid nephrotoxins Follow BMP daily (4) Severe protein-calorie malnutrition Conclusion/Plan: She has had 40 lb weight loss in 3 mos and is taking in <40 of her diet needs, causing severe weakness Plan; IV PPN with LIpids Simulation Analyst consult (5) N&V (nausea and vomiting) Conclusion/Plan: This is recurrent and likely due to repeat distal esophageal stricture, which has needed 8 dilatations in her past Plan: Anti-emetics prn iv fluids Clear liquid and will not advance Her upper GI scope has already been postponed by the from being in 2 days to sometime later (6) Hypokalemia Conclusion/Plan: From inadequate intake Plan: Replace with K riders, not po due to N/V Follow BMP daily (7) Microcytic anemia Conclusion/Plan: Liklely from inadequate Iron Plan: Check Iron stores If low, will replace and check stool guaic (8) Gastric bypass status for obesity Conclusion/Plan: As per Hx. Then had complications afterward. - Lab Results Fish Bones: 08/03/23 16:14 08/06/23 05:19
[2023-08-03 16:30] LABS: HCT - HEMATOCRIT 30.4 % (37.0-47.0); HGB - HEMOGLOBIN 9.7 g/dL (12.0-16.0); MEAN CORPUSCULAR HEMOGLOBIN 25.2 pg (27.0-31.0); MEAN CORPUSCULAR HGB CONC 31.9 g/dL (32.0-36.0); MEAN PLATELET VOLUME 9.9 fL (7.9-10.8); RED BLOOD COUNT 3.85 10^6/uL (4.20-5.40); WHITE BLOOD COUNT 7.9 x10^3/uL (4.8-10.8)
[2023-08-03 16:39] LABS: CALCIUM 9.2 mg/dL (8.5-10.3); CREATININE 0.9 mg/dL (0.6-1.3); POTASSIUM 2.8 mmol/L (3.5-4.5)
[2023-08-03] MEDS: POTASSIUM CHLOR 10 MEQ/100 ML 10 MEQ/100 ML BAG IV SCH ×4 (17:33→20:30)
[2023-08-03] MEDS: SODIUM CHLORIDE FLUSH 0.9% 10 ML SYRINGE IVP SCH (17:33)
[2023-08-03] MEDS ORDERED: PPN (CLINIMIX E 4.25/5) 2,000 ML with MULTIVITAMIN 10 ML, TRACE ELEMENTS 1 ML IV SCH ×3 (19:00)
[2023-08-03] MEDS: PPN (CLINIMIX E 4.25/5) 2,000 ML with MULTIVITAMIN 10 ML, TRACE ELEMENTS 1 ML IV SCH ×3 (19:25)
[2023-08-03] MEDS: FAT EMULSION 20% 250 ML IV SCH (19:25)
[2023-08-03] MEDS: HEPARIN 5,000 UNIT/ML VIAL SUBQ SCH (21:07)
[2023-08-03] MEDS: DULoxetine 30 MG CAPSULE PO SCH (21:13)
[2023-08-03] MEDS: busPIRone 5 MG TABLET PO SCH (21:13)
[2023-08-03] MEDS: buPROPion SR 150 MG TABLET PO SCH (21:13)
[2023-08-03] MEDS: QUEtiapine 25 MG TABLET PO SCH (21:13)
[2023-08-03] MEDS: BACLOFEN 10 MG TABLET PO SCH (21:13)
[2023-08-04] MEDS: SODIUM CHLORIDE FLUSH 0.9% 10 ML SYRINGE IVP SCH ×3 (00:23→16:51)
[2023-08-04 05:29] LABS: PT - PROTHROMBIN TIME 10.8 secs (9.9-12.6)
[2023-08-04 05:38] LABS: CALCIUM 8.9 mg/dL (8.5-10.3); CREATININE 0.9 mg/dL (0.6-1.3); MAGNESIUM 1.6 mg/dL (1.7-2.3); PHOSPHORUS 3.2 mg/dL (2.5-5.0)
[2023-08-04] MEDS: THIAMINE INJ 500 MG in SODIUM CHLORIDE 0.9% 50 ML IV SCH ×3 (06:21→22:24)
[2023-08-04] MEDS: DULoxetine 30 MG CAPSULE PO SCH ×2 (08:29→20:33)
[2023-08-04] MEDS: busPIRone 5 MG TABLET PO SCH ×2 (08:29→20:33)
[2023-08-04] MEDS: BACLOFEN 10 MG TABLET PO SCH ×2 (08:29→20:33)
[2023-08-04] MEDS: buPROPion SR 150 MG TABLET PO SCH ×2 (08:29→20:33)
[2023-08-04] MEDS: HEPARIN 5,000 UNIT/ML VIAL SUBQ SCH ×2 (08:37→20:34)
--- NOTE | 2023-08-04 10:51 | PHARMACY PROGRESS NOTE ---
- Best Possible Medication History Admit Date and Time: 08/03/23 1232 Processed by: Pharmacy Medication History completed: Yes Patient Interview: Pt unable to participate Secondary Source(s): Spouse/Significant other, Insurance records As the person ultimately responsible for medication therapy, providers are able to order a medication from an existing home medication list in [facility] via the "Reconcile Routine" prior to Confirmation of that medication by fire support man. Such practice is discouraged except when the physician, in their clinical judgment, deems that a medical need exists for a medication without regard to previous use.
[2023-08-04 10:52] LABS: GLUCOSE, URINE (UA) NEGATIVE (NEGATIVE); KETONES,URINE (UA) 15 mg/dL (NEGATIVE); LEUKOCYTE ESTERASE, URINE NEGATIVE (NEGATIVE); NITRITE,URINE NEGATIVE (NEGATIVE); OCCULT BLOOD,URINE NEGATIVE (NEGATIVE); PROTEIN,URINE NEGATIVE (NEGATIVE); UROBILINOGEN,URINE 0.2 (NORMAL) E.U./dL (NORMAL)
[2023-08-04 11:03] LABS: BACTERIA,URINE Rare /HPF (None Seen); BILIRUBIN,URINE NEGATIVE (NEGATIVE); CLARITY,URINE CLEAR (CLEAR); ICTOTEST,URINE NEGATIVE; RBC,URINE 0-5 /HPF (0-5); SQUAMOUS EPITHELIAL CELL,UR FEW Squamous (<= Few); WBC,URINE 0-3 /HPF (0-5)
--- NOTE | 2023-08-04 19:42 | PROVIDER PROGRESS NOTE ---
Assessment/Plan - Problem List (1) AMS (altered mental status) Qualifiers: Altered mental status type: disorientation Assessment/Plan: As per Neurol impression she presented with confusion, ataxia and palsy from Thiamine deficit. She is receiving iv Thiamine 500 mg TID, as was recommended by Neurologist who spoke to ED provider, and she has slight improvement: is slightly more awake, can follow directions and cranial nerves are entirely intact today. Plan: Cont Thiamine iv TID and other neurol advice Supportive care Will eventually get PT and OT eval and tx Qualifiers: Altered mental status type: disorientation Qualified Code(s): R41.0 - Disorientation, unspecified (2) Ataxia Conclusion/Plan: As per Hx. Her [id number] was abn in ER, her gait cannot be evaluated because she is lethargic. Plan: As in #1 (3) Prerenal azotemia Conclusion/Plan: Her labs show volume depletion, consistent with her recent Hx. BUN/creat ratio slt better on iv fluids (all labs reviewed) Plan: Cont iv fluids and also in the form of PPN Avoid nephrotoxins Follow BMP daily (4) Severe protein-calorie malnutrition Conclusion/Plan: She has had 40 lb weight loss in 3 mos and is taking in <40 of her diet needs, causing severe weakness Plan; IV PPN with LIpids Registered Nurse Fetal consult (5) N&V (nausea and vomiting) Conclusion/Plan: This is recurrent and likely due to repeat distal esophageal stricture, which has needed 8 dilatations in her past Plan: Anti-emetics prn iv fluids Clear liquid diet and will not advance Her upper GI scope has already been postponed by the from being tomorrow to sometime later (6) Hypokalemia Conclusion/Plan: From inadequate intake Plan: Replace with K riders, not po due to N/V Follow BMP daily (7) Microcytic anemia Conclusion/Plan: Likely from inadequate Iron Plan: Check Iron stores If low, will replace and check stool guaic (8) Gastric bypass status for obesity Conclusion/Plan: As per Hx. Then had complications afterward: esoph stricture and needed 8 dilations - Current Meds Current Meds: Current Medications Generic Name Dose Route Start Last Admin Trade Name Freq PRN Reason Stop Dose Admin Baclofen 10 mg 08/03/23 21:00 08/04/23 08:29 Baclofen 10 Mg Tablet PO 10 mg BID NEETU Administration Bupropion HCl 150 mg 08/03/23 21:00 08/04/23 08:29 Bupropion Sr 150 Mg Tablet PO 150 mg BID NEETU Administration Buspirone HCl 10 mg 08/03/23 21:00 08/04/23 08:29 Buspirone 5 Mg Tablet PO 10 mg BID NEETU Administration Duloxetine HCl 30 mg 08/03/23 21:00 08/04/23 08:29 Duloxetine 30 Mg Capsule PO 30 mg BID NEETU Administration Heparin Sodium (Porcine) 5,000 unit 08/03/23 21:00 08/04/23 08:37 Heparin 5,000 Unit/Ml Vial SUBQ 5,000 unit BID [facility] Administration Thiamine HCl 500 mg/ Sodium 55 mls @ 100 mls/hr 08/03/23 08:00 08/04/23 14:57 Chloride IV 08/05/23 14:32 Infused TID [facility] Infusion Fat Emulsion Intravenous 250 mls @ 21 mls/hr 08/03/23 19:00 08/04/23 07:20 Intralipid 20% IV Infused 1900 [facility] Infusion Multivitamins 10 ml/ TRACE 2,011 mls @ 42 mls/hr 08/03/23 19:00 08/03/23 19:25 ELEMENTS 1 ml/ Amino Acids/ IV 42 mls/hr Electrolytes/Dextrose 1900 [facility] Administration Protocol Quetiapine Fumarate 50 mg 08/03/23 21:00 08/03/23 21:13 Quetiapine 25 Mg Tablet PO 50 mg QPM NEETU Administration Sodium Chloride 10 ml 08/03/23 17:00 08/04/23 16:51 Sodium Chloride Flush 0.9% 10 Ml Syringe IVP 10 ml 0100,0900,1700 [facility] Administration - Lab Result Fish Bone Diagrams: 08/03/23 16:14 08/06/23 05:19 - Additional Planning My Orders: My Active Orders 08/03/23 19:00 Fat Emulsion 20% [Intralipid 20%] 250 ml IV 1900 Multivitamin [Infuvite] 10 ml Trace Elements [Tralement Vial] 1 ml Ppn (Clinimix E 4.25/5) [Clinimix E 4.25%-5% Solution] 2,000 ml IV 1900 08/03/23 21:00 Baclofen [Lioresal] 10 mg PO BID DULoxetine [Cymbalta] 30 mg PO BID Heparin [Heparin Sodium (Porcine)] 5,000 unit SUBQ BID QUEtiapine [SEROquel] 50 mg PO QPM buPROPion [Wellbutrin Sr] 150 mg PO BID busPIRone [Buspar] 10 mg PO BID 08/04/23 08:16 Straight Catheter Insertion [RC] PRN 08/05/23 05:00 BMP - BASIC METABOLIC PANEL [CHEM] DAILYLAB 08/06/23 05:00 BMP - BASIC METABOLIC PANEL [CHEM] DAILYLAB TRIGLYCERIDES [CHEM] Routine 08/07/23 05:00 BMP - BASIC METABOLIC PANEL [CHEM] DAILYLAB 08/08/23 05:00 PREALBUMIN [CHEM] Routine Subjective - Subjective Patient Reports: Feeling Better (Slightly more awake and nods her head that she feels better, not speaking.), Resting Comfortably Objective Vital Signs: Vital Signs - 24 hr 08/04/23 08/04/23 08/04/23 00:10 08:38 15:31 Temperature 36.7 C 36.9 C 36.7 C Heart Rate [ 82 82 76 Brachial] Respiratory 16 16 16 Rate Blood Pressure 127/81 H 138/85 H 161/97 H [Right Brachial artery] O2 Saturation 98 94 98 Oxygen O2 Source [With Activity] Room air O2 Source [Without Activity] Room air O2 Source Room air I&O (Last 24 Hrs): Intake and Output Totals x24h 08/02/23 08/03/23 08/04/23 23:59 23:59 23:59 Intake Total 4201.333 480 Output Total 400 1000 Balance 3801.333 -520 General: Other (Lethargic, follows with eyes, nods her head, not speaking, is swallowing sips only) HEENT: Mucous membr. moist/pink, Other (eyes sunken) Neck: Supple Neuro: Other (Lethargic, moves all extrem) Cardiovascular: Regular rate, No murmurs Respiratory: No respiratory distress Abdomen: Soft, No tenderness Extremities: No clubbing, No edema, No tenderness/swelling - Results Results: Laboratory Results WBC 7.9 x10^3/uL (4.8-10.8) 08/03/23 16:14 RBC 3.85 10^6/uL (4.20-5.40) L 08/03/23 16:14 Hgb 9.7 g/dL (12.0-16.0) L 08/03/23 16:14 Hct 30.4 % (37.0-47.0) L 08/03/23 16:14 MCV 79.0 fL (81.0-99.0) L 08/03/23 16:14 MCH 25.2 pg (27.0-31.0) L 08/03/23 16:14 MCHC 31.9 g/dL (32.0-36.0) L 08/03/23 16:14 RDW 20.0 % (12.0-15.0) H 08/03/23 16:14 Plt Count 212 10^3/uL (130-450) 08/03/23 16:14 MPV 9.9 fL (7.9-10.8) 08/03/23 16:14 Neut # (Auto) 6.8 10^3/uL (1.5-6.6) H 08/02/23 20:30 Lymph # (Auto) 2.1 10^3/uL (1.5-3.5) 08/02/23 20:30 [place] # (Auto) 0.5 10^3/uL (0.0-1.0) 08/02/23 20:30 Eos # (Auto) 0.0 10^3/uL (0.0-0.7) 08/02/23 20:30 Baso # (Auto) 0.0 10^3/uL (0.0-0.1) 08/02/23 20:30 Absolute Nucleated RBC 0.02 x10^3/uL 08/02/23 20:30 Nucleated RBC % 0.2 /100WBC 08/02/23 20:30 Manual Slide Review Indicated 08/02/23 20:30 WBC Morphology NORMAL APPEARANCE (NORMAL) 08/02/23 20:30 Platelet Estimate NORMAL (130-450,000) (NORMAL) 08/02/23 20:30 Platelet Morphology NORMAL APPEARANCE (NORMAL) 08/02/23 20:30 RBC Morph Micro Appear 1+ ANISOCYTOSIS (NORMAL) 1+ MICROCYTOSIS (NORMAL) 08/02/23 20:30 RBC Morph Micro Appear 1+ ANISOCYTOSIS (NORMAL) 1+ MICROCYTOSIS (NORMAL) 08/02/23 20:30 PT 10.8 secs (9.9-12.6) 08/04/23 05:04 INR 1.0 (0.8-1.2) 08/04/23 05:04 Sodium 139 mmol/L (135-145) 08/04/23 05:04 Potassium 3.0 mmol/L (3.5-4.5) L 08/04/23 05:04 Chloride 105 mmol/L (101-111) 08/04/23 05:04 Carbon Dioxide 24 mmol/L (21-32) 08/04/23 05:04 Anion Gap 10.0 (6-13) 08/04/23 05:04 BUN 20 mg/dL (6-20) 08/04/23 05:04 Creatinine 0.9 mg/dL (0.6-1.3) 08/04/23 05:04 Estimated GFR (MDRD) 63 (>89) L 08/04/23 05:04 Glucose 81 mg/dL (74-104) 08/04/23 05:04 Calcium 8.9 mg/dL (8.5-10.3) 08/04/23 05:04 Phosphorus 3.2 mg/dL (2.5-5.0) 08/04/23 05:04 Magnesium 1.6 mg/dL (1.7-2.3) L 08/04/23 05:04 Iron 37 ug/dL (50-212) L 08/04/23 05:04 TIBC 210 ug/dL (250-450) L 08/04/23 05:04 % Saturation 18 % (20-50) L 08/04/23 05:04 Transferrin 150 mg/dL (203-362) L 08/04/23 05:04 Total Bilirubin 0.6 mg/dL (0.2-1.0) 08/02/23 21:04 AST 16 IU/L (10-42) 08/02/23 21:04 ALT 13 IU/L (10-60) 08/02/23 21:04 Alkaline Phosphatase 92 IU/L (42-121) 08/02/23 21:04 Total Protein 6.2 g/dL (6.4-8.9) L 08/02/23 21:04 Albumin 3.5 g/dL (3.2-5.5) 08/02/23 21:04 Globulin 2.7 g/dL (2.1-4.2) 08/02/23 21:04 Albumin/Globulin Ratio 1.3 (1.0-2.2) 08/02/23 21:04 Prealbumin 12 mg/dL (17-34) L 08/04/23 05:04 Triglycerides 158 mg/dL (48-352) 08/04/23 05:04 Lipase 35 U/L (11-82) 08/02/23 21:04 Vitamin B12 381 pg/mL (180-914) 08/04/23 05:04 Folate 11.0 ng/mL (5.90 - >24.8) 08/04/23 05:04 Urine Color YELLOW 08/04/23 09:35 Urine Clarity CLEAR (CLEAR) 08/04/23 09:35 Urine pH 6.0 PH (5.0-7.5) 08/04/23 09:35 Ur Specific [place] 1.020 (1.002-1.030) 08/04/23 09:35 Urine Protein NEGATIVE mg/dL (NEGATIVE) 08/04/23 09:35 Urine Glucose (UA) NEGATIVE mg/dL (NEGATIVE) 08/04/23 09:35 Urine Ketones 15 mg/dL (NEGATIVE) H 08/04/23 09:35 Urine Occult Blood NEGATIVE (NEGATIVE) 08/04/23 09:35 Urine Nitrite NEGATIVE (NEGATIVE) 08/04/23 09:35 Urine Bilirubin NEGATIVE (NEGATIVE) 08/04/23 09:35 Urine Urobilinogen 0.2 (NORMAL) E.U./dL (NORMAL) 08/04/23 09:35 Ur Leukocyte Esterase NEGATIVE (NEGATIVE) 08/04/23 09:35 Urine RBC 0-5 /HPF (0-5) 08/04/23 09:35 Urine WBC 0-3 /HPF (0-5) 08/04/23 09:35 Ur Squamous Epith Cells FEW Squamous (<= Few) 08/04/23 09:35 Urine Bacteria Rare /HPF (None Seen) 08/04/23 09:35 Ur Microscopic Review NOT INDICATED 08/03/23 02:14 Urine Culture Comments NOT INDICATED 08/04/23 09:35 Urine Opiates Screen NEGATIVE (NEGATIVE) 08/03/23 02:14 Ur Buprenorphine Scrn NEGATIVE (NEGATIVE) 08/03/23 02:14 Ur Oxycodone Screen NEGATIVE (NEGATIVE) 08/03/23 02:14 Urine Methadone Screen NEGATIVE (NEGATIVE) 08/03/23 02:14 Ur Barbiturates Screen NEGATIVE (NEGATIVE) 08/03/23 02:14 Ur Tricyclics Screen NEGATIVE (NEGATIVE) 08/03/23 02:14 Ur Phencyclidine Scrn NEGATIVE (NEGATIVE) 08/03/23 02:14 Ur Amphetamine Screen NEGATIVE (NEGATIVE) 08/03/23 02:14 U Methamphetamines Scrn NEGATIVE (NEGATIVE) 08/03/23 02:14 U Benzodiazepines Scrn NEGATIVE (NEGATIVE) 08/03/23 02:14 Urine Cocaine Screen NEGATIVE (NEGATIVE) 08/03/23 02:14 U Cannabinoids Screen POSITIVE (NEGATIVE) H 08/03/23 02:14 Ur Drug Screen Comment CUTOFF CONC BELOW: 08/03/23 02:14 - Procedures Procedures: Procedures EXCISION OF STOMACH, ENDO, DIAGN (09/16/17) INSERTION OF FEEDING DEVICE INTO JEJUNUM, VIA OPENING (07/22/15) INSPECTION OF LOWER INTESTINAL TRACT, ENDO (09/16/17) INTRAOPER CHOLANGIOGRAM (01/20/14) INTRODUCTION OF NUTRITIONAL INTO LOW GI, VIA OPENING (07/22/15) LAPAROSCOPIC CHOLECYSTECTOMY (01/20/14)
[2023-08-04] MEDS: FAT EMULSION 20% 250 ML IV SCH (19:55)
[2023-08-04] MEDS: QUEtiapine 25 MG TABLET PO SCH (20:33)
[2023-08-04] MEDS ORDERED: THIAMINE 100 MG/1 ML 2 ML MDV ONE (22:19)
[2023-08-05] MEDS: SODIUM CHLORIDE FLUSH 0.9% 10 ML SYRINGE IVP SCH ×4 (00:27→23:59)
[2023-08-05] MEDS: THIAMINE INJ 500 MG in SODIUM CHLORIDE 0.9% 50 ML IV SCH ×2 (05:21→14:08)
[2023-08-05 06:12] LABS: CALCIUM 8.9 mg/dL (8.5-10.3); CREATININE 0.8 mg/dL (0.6-1.3); POTASSIUM 2.9 mmol/L (3.5-4.5)
[2023-08-05] MEDS: PPN (CLINIMIX E 4.25/5) 2,000 ML with MULTIVITAMIN 10 ML, TRACE ELEMENTS 1 ML IV SCH ×9 (07:46→20:17)
[2023-08-05] MEDS: busPIRone 5 MG TABLET PO SCH ×2 (08:00→20:17)
[2023-08-05] MEDS: DULoxetine 30 MG CAPSULE PO SCH ×2 (08:00→20:17)
[2023-08-05] MEDS: buPROPion SR 150 MG TABLET PO SCH ×2 (08:00→20:17)
[2023-08-05] MEDS: BACLOFEN 10 MG TABLET PO SCH ×2 (08:00→20:17)
[2023-08-05] MEDS: HEPARIN 5,000 UNIT/ML VIAL SUBQ SCH ×2 (08:03→20:25)
[2023-08-05] MEDS: POTASSIUM CHLOR 10 MEQ/100 ML 10 MEQ/100 ML BAG IV SCH ×4 (09:15→12:25)
--- NOTE | 2023-08-05 19:20 | PROVIDER PROGRESS NOTE ---
Assessment/Plan - Problem List (1) AMS (altered mental status) Qualifiers: Altered mental status type: disorientation Qualified Code(s): R41.0 - Disorientation, unspecified Assessment/Plan: As per Neurol impression, she presented with confusion, ataxia and palsy from Thiamine deficit. She is receiving iv Thiamine 500 mg TID, as was recommended by Neurologist who spoke to ED provider She has slight improvement daily: today she is more awake, can follow directions, speaks with 1-2 word answers, and cranial nerves remain entirely intact. Plan: Cont Thiamine (iv TID x8 doses today she gets doses 7 and 8, then po Thiamine daily to start tomorrow), and cont other neurol advice Supportive care PT and OT to start eval and tx Qualifiers: Altered mental status type: disorientation Qualified Code(s): R41.0 - Disorientation, unspecified (2) Ataxia Conclusion/Plan: As per Hx. Her [id number] was abn in ER, her gait was not yet evaluated because she was lethargic. Plan: As in #1 including PT and OT to start (3) Prerenal azotemia Conclusion/Plan: IMPROVED Her labs showed volume depletion, consistent with her recent Hx. BUN/creat ratio better on iv fluids (all labs reviewed) Plan: Cont iv fluids at a decreased rate today and cont new PPN Avoid nephrotoxins Follow BMP daily (4) Severe protein-calorie malnutrition Conclusion/Plan: She has had 40 lb weight loss in 3 mos and is taking in <40 of her diet needs, causing severe weakness Her planned upper GI scope has already been postponed by the . Today the informed me that the office of her gastric bypass Gasroenterolgy Surgeon Dr Wil Beauchamp advised the pt be transferred to on Hospitalist service. I will reach out to [facility]. Plan: IV PPN with Lipids to continue Fly Frame Tender helping give advice including suggestion for TPN via a PICC line and to contact [facility] provider about when a PEG can be placed (5) Hypomagnesemia Conclusion/Plan: IMPROVED From inadequate intake Plan: Replace with Mg riders Follow Mg daily until normal (6) Hypokalemia Conclusion/Plan: From inadequate intake Plan: Replace with K riders, not po due to N/V Follow BMP daily (7) Microcytic anemia Conclusion/Plan: Likely from inadequate Iron intake Plan: Check Iron stores If low, will replace and check stool guaic (8) Gastric bypass status for obesity Conclusion/Plan: As per Hx. Then had complications afterward: recurrent esoph stricture and needed 8 dilations. Her upper GI scope was to be done today at another facility and has been postponed by the from being today to sometime later (9) N&V (nausea and vomiting) Conclusion/Plan: RESOLVED This is recurrent and likely due to repeat distal esophageal stricture, which has needed 8 dilatations in her past Plan: Anti-emetics prn Small meals/liquids iv hydration Clear liquid diet and will not advance Her upper GI scope has already been postponed by the from being today to sometime later - Current Meds Current Meds: Current Medications Generic Name Dose Route Start Last Admin Trade Name [place] PRN Reason Stop Dose Admin Baclofen 10 mg 08/03/23 21:00 08/05/23 08:00 Baclofen 10 Mg Tablet PO 10 mg BID NEETU Administration Bupropion HCl 150 mg 08/03/23 21:00 08/05/23 08:00 Bupropion Sr 150 Mg Tablet PO 150 mg BID NEETU Administration Buspirone HCl 10 mg 08/03/23 21:00 08/05/23 08:00 Buspirone 5 Mg Tablet PO 10 mg BID NEETU Administration Duloxetine HCl 30 mg 08/03/23 21:00 08/05/23 08:00 Duloxetine 30 Mg Capsule PO 30 mg BID NEETU Administration Heparin Sodium (Porcine) 5,000 unit 08/03/23 21:00 08/05/23 08:03 Heparin 5,000 Unit/Ml Vial SUBQ 5,000 unit BID NEETU Administration Fat Emulsion Intravenous 250 mls @ 21 mls/hr 08/03/23 19:00 08/05/23 07:50 Intralipid 20% IV Infused 1900 REPLACED BY [facility] Infusion Multivitamins 10 ml/ TRACE 2,011 mls @ 83 mls/hr 08/05/23 12:00 08/05/23 14:03 ELEMENTS 1 ml/ Amino Acids/ IV Not Given Electrolytes/Dextrose 1900 REPLACED BY [facility] Protocol Quetiapine Fumarate 50 mg 08/03/23 21:00 08/04/23 20:33 Quetiapine 25 Mg Tablet PO 50 mg QPM NEETU Administration Sodium Chloride 10 ml 08/03/23 17:00 08/05/23 17:15 Sodium Chloride Flush 0.9% 10 Ml Syringe IVP 10 ml 0100,0900,1700 REPLACED BY [facility] Administration - Lab Result Fish Bone Diagrams: 08/03/23 16:14 08/06/23 05:19 - Additional Planning My Orders: My Active Orders 08/05/23 Evaluate and Treat OT [OT] Routine Evaluate and Treat PT [PT] Routine 08/05/23 12:00 Multivitamin [Infuvite] 10 ml Trace Elements [Tralement Vial] 1 ml Ppn (Clinimix E 4.25/5) [Clinimix E 4.25%-5% Solution] 2,000 ml IV 1900 08/05/23 Dinner Clear Liquid Diet [DIET] 08/06/23 05:00 BMP - BASIC METABOLIC PANEL [CHEM] DAILYLAB TRIGLYCERIDES [CHEM] Routine 08/07/23 05:00 BMP - BASIC METABOLIC PANEL [CHEM] DAILYLAB 08/08/23 05:00 PREALBUMIN [CHEM] Routine Subjective - Subjective Patient Reports: Feeling Better (She says Yes and nods her head to almost everything that is being said between me and the . Feeding herself), Resting Comfortably Objective Vital Signs: Vital Signs - 24 hr 08/05/23 08/05/23 08/05/23 00:00 07:37 14:00 Temperature 36.5 C 36.6 C Heart Rate [ 93 86 Brachial] Heart Rate [ 103 H Sitting] Respiratory 18 16 Rate Blood Pressure 123/78 148/89 H [Right Brachial artery] Blood Pressure 131/76 H [Sitting] O2 Saturation 97 97 08/05/23 16:00 Temperature 36.5 C Heart Rate [ 99 Brachial] Heart Rate [ Sitting] Respiratory 16 Rate Blood Pressure 138/85 H [Right Brachial artery] Blood Pressure [Sitting] O2 Saturation 95 Oxygen O2 Source [With Activity] Room air O2 Source [Without Activity] Room air O2 Source Room air I&O (Last 24 Hrs): Intake and Output Totals x24h 08/03/23 08/04/23 08/05/23 23:59 23:59 23:59 Intake Total 4201.575 202 5384.5 Output Total 400 1000 950 Balance 3801.333 -265 2088.5 General: Alert, No acute distress HEENT: Mucous membr. moist/pink Neck: Supple, No JVD Neuro: Alert, Non Focal, Other (Minimally communicative, just nods and says Yes to each comment) Cardiovascular: Regular rate Respiratory: No respiratory distress Abdomen: Soft, No tenderness Extremities: No clubbing, No edema, No tenderness/swelling - Results Results: Laboratory Results WBC 7.9 x10^3/uL (4.8-10.8) 08/03/23 16:14 RBC 3.85 10^6/uL (4.20-5.40) L 08/03/23 16:14 Hgb 9.7 g/dL (12.0-16.0) L 08/03/23 16:14 Hct 30.4 % (37.0-47.0) L 08/03/23 16:14 MCV 79.0 fL (81.0-99.0) L 08/03/23 16:14 MCH 25.2 pg (27.0-31.0) L 08/03/23 16:14 MCHC 31.9 g/dL (32.0-36.0) L 08/03/23 16:14 RDW 20.0 % (12.0-15.0) H 08/03/23 16:14 Plt Count 212 10^3/uL (130-450) 08/03/23 16:14 MPV 9.9 fL (7.9-10.8) 08/03/23 16:14 Neut # (Auto) 6.8 10^3/uL (1.5-6.6) H 08/02/23 20:30 Lymph # (Auto) 2.1 10^3/uL (1.5-3.5) 08/02/23 20:30 [place] # (Auto) 0.5 10^3/uL (0.0-1.0) 08/02/23 20:30 Eos # (Auto) 0.0 10^3/uL (0.0-0.7) 08/02/23 20:30 Baso # (Auto) 0.0 10^3/uL (0.0-0.1) 08/02/23 20:30 Absolute Nucleated RBC 0.02 x10^3/uL 08/02/23 20:30 Nucleated RBC % 0.2 /100WBC 08/02/23 20:30 Manual Slide Review Indicated 08/02/23 20:30 WBC Morphology NORMAL APPEARANCE (NORMAL) 08/02/23 20:30 Platelet Estimate NORMAL (130-450,000) (NORMAL) 08/02/23 20:30 Platelet Morphology NORMAL APPEARANCE (NORMAL) 08/02/23 20:30 RBC Morph Micro Appear 1+ ANISOCYTOSIS (NORMAL) 1+ MICROCYTOSIS (NORMAL) 08/02/23 20:30 RBC Morph Micro Appear 1+ ANISOCYTOSIS (NORMAL) 1+ MICROCYTOSIS (NORMAL) 08/02/23 20:30 PT 10.8 secs (9.9-12.6) 08/04/23 05:04 INR 1.0 (0.8-1.2) 08/04/23 05:04 Sodium 138 mmol/L (135-145) 08/05/23 05:25 Potassium 2.9 mmol/L (3.5-4.5) L 08/05/23 05:25 Chloride 104 mmol/L (101-111) 08/05/23 05:25 Carbon Dioxide 26 mmol/L (21-32) 08/05/23 05:25 Anion Gap 8.0 (6-13) 08/05/23 05:25 BUN 17 mg/dL (6-20) 08/05/23 05:25 Creatinine 0.8 mg/dL (0.6-1.3) 08/05/23 05:25 Estimated GFR (MDRD) 72 (>89) L 08/05/23 05:25 Glucose 121 mg/dL (74-104) H 08/05/23 05:25 Calcium 8.9 mg/dL (8.5-10.3) 08/05/23 05:25 Phosphorus 3.2 mg/dL (2.5-5.0) 08/04/23 05:04 Magnesium 1.7 mg/dL (1.7-2.3) 08/05/23 05:25 Iron 37 ug/dL (50-212) L 08/04/23 05:04 TIBC 210 ug/dL (250-450) L 08/04/23 05:04 % Saturation 18 % (20-50) L 08/04/23 05:04 Transferrin 150 mg/dL (203-362) L 08/04/23 05:04 Total Bilirubin 0.6 mg/dL (0.2-1.0) 08/02/23 21:04 AST 16 IU/L (10-42) 08/02/23 21:04 ALT 13 IU/L (10-60) 08/02/23 21:04 Alkaline Phosphatase 92 IU/L (42-121) 08/02/23 21:04 Total Protein 6.2 g/dL (6.4-8.9) L 08/02/23 21:04 Albumin 3.5 g/dL (3.2-5.5) 08/02/23 21:04 Globulin 2.7 g/dL (2.1-4.2) 08/02/23 21:04 Albumin/Globulin Ratio 1.3 (1.0-2.2) 08/02/23 21:04 Prealbumin 12 mg/dL (17-34) L 08/04/23 05:04 Triglycerides 158 mg/dL (48-352) 08/04/23 05:04 Lipase 35 U/L (11-82) 08/02/23 21:04 Vitamin B12 381 pg/mL (180-914) 08/04/23 05:04 Folate 11.0 ng/mL (5.90 - >24.8) 08/04/23 05:04 Urine Color YELLOW 08/04/23 09:35 Urine Clarity CLEAR (CLEAR) 08/04/23 09:35 Urine pH 6.0 PH (5.0-7.5) 08/04/23 09:35 Ur Specific [place] 1.020 (1.002-1.030) 08/04/23 09:35 Urine Protein NEGATIVE mg/dL (NEGATIVE) 08/04/23 09:35 Urine Glucose (UA) NEGATIVE mg/dL (NEGATIVE) 08/04/23 09:35 Urine Ketones 15 mg/dL (NEGATIVE) H 08/04/23 09:35 Urine Occult Blood NEGATIVE (NEGATIVE) 08/04/23 09:35 Urine Nitrite NEGATIVE (NEGATIVE) 08/04/23 09:35 Urine Bilirubin NEGATIVE (NEGATIVE) 08/04/23 09:35 Urine Urobilinogen 0.2 (NORMAL) E.U./dL (NORMAL) 08/04/23 09:35 Ur Leukocyte Esterase NEGATIVE (NEGATIVE) 08/04/23 09:35 Urine RBC 0-5 /HPF (0-5) 08/04/23 09:35 Urine WBC 0-3 /HPF (0-5) 08/04/23 09:35 Ur Squamous Epith Cells FEW Squamous (<= Few) 08/04/23 09:35 Urine Bacteria Rare /HPF (None Seen) 08/04/23 09:35 Ur Microscopic Review NOT INDICATED 08/03/23 02:14 Urine Culture Comments NOT INDICATED 08/04/23 09:35 Urine Opiates Screen NEGATIVE (NEGATIVE) 08/03/23 02:14 Ur Buprenorphine Scrn NEGATIVE (NEGATIVE) 08/03/23 02:14 Ur Oxycodone Screen NEGATIVE (NEGATIVE) 08/03/23 02:14 Urine Methadone Screen NEGATIVE (NEGATIVE) 08/03/23 02:14 Ur Barbiturates Screen NEGATIVE (NEGATIVE) 08/03/23 02:14 Ur Tricyclics Screen NEGATIVE (NEGATIVE) 08/03/23 02:14 Ur Phencyclidine Scrn NEGATIVE (NEGATIVE) 08/03/23 02:14 Ur Amphetamine Screen NEGATIVE (NEGATIVE) 08/03/23 02:14 U Methamphetamines Scrn NEGATIVE (NEGATIVE) 08/03/23 02:14 U Benzodiazepines Scrn NEGATIVE (NEGATIVE) 08/03/23 02:14 Urine Cocaine Screen NEGATIVE (NEGATIVE) 08/03/23 02:14 U Cannabinoids Screen POSITIVE (NEGATIVE) H 08/03/23 02:14 Ur Drug Screen Comment CUTOFF CONC BELOW: 08/03/23 02:14 - Procedures Procedures: Procedures EXCISION OF STOMACH, ENDO, DIAGN (09/16/17) INSERTION OF FEEDING DEVICE INTO JEJUNUM, VIA OPENING (07/22/15) INSPECTION OF LOWER INTESTINAL TRACT, ENDO (09/16/17) INTRAOPER CHOLANGIOGRAM (01/20/14) INTRODUCTION OF NUTRITIONAL INTO LOW GI, VIA OPENING (07/22/15) LAPAROSCOPIC CHOLECYSTECTOMY (01/20/14)
[2023-08-05] MEDS: QUEtiapine 25 MG TABLET PO SCH (20:17)
[2023-08-05] MEDS: FAT EMULSION 20% 250 ML IV SCH (20:19)
[2023-08-06 05:50] LABS: CREATININE 0.7 mg/dL (0.6-1.3); POTASSIUM 3.4 mmol/L (3.5-4.5)
[2023-08-06] MEDS: SODIUM CHLORIDE FLUSH 0.9% 10 ML SYRINGE IVP SCH ×2 (08:04→16:39)
[2023-08-06] MEDS: buPROPion SR 150 MG TABLET PO SCH ×2 (08:04→21:26)
[2023-08-06] MEDS: busPIRone 5 MG TABLET PO SCH ×2 (08:04→21:26)
[2023-08-06] MEDS: BACLOFEN 10 MG TABLET PO SCH ×2 (08:04→21:25)
[2023-08-06] MEDS: DULoxetine 30 MG CAPSULE PO SCH ×2 (08:04→21:26)
[2023-08-06] MEDS: HEPARIN 5,000 UNIT/ML VIAL SUBQ SCH ×2 (08:06→21:25)
--- NOTE | 2023-08-06 12:54 | ANESTHESIA PROCEDURE NOTE ---
Anesth Central Line Template - Central Line Central Line Preparation: Consent Obtained, Unable to obtain consent, Time out completed, Ultrasound used, Sterile prep and drape Central line location: Right Basilic Central line type: PICC Single Lumen Central line catheter tip site resides: Superior vena cava (SVC) Central line aftercare: Secured, Placement confirmed, No pneumothorax, No complications, Bundle checklist complete, Pt tolerated well, Other Other Info/Details: cut @30, hubbed w/tip tracker, no p wave changes, PCXR
--- NOTE | 2023-08-06 13:03 | PROVIDER PROGRESS NOTE ---
Assessment/Plan - Problem List (1) Wernicke's syndrome Assessment/Plan: As per Neurol impression, she presented with confusion, ataxia and palsy, which was from Thiamine deficit from malabsorption caused by her gastric bypass surgery. She completed getting Thiamine (iv TID x8 doses) as was recommended by Neurologist who spoke to ED provider She has slight improvement daily: today she is awake, can follow directions, speaks with 1-2 word answers, and cranial nerves remain entirely intact. Plan: Today will start po Thiamine 100 mg daily, and cont other neurol advice Supportive care PT and OT to cont to work with her (2) Ataxia Conclusion/Plan: Her [id number] was abn in ER. Yesterday afternoon she started working with PT and OT, who documented her ataxic gait Plan: As in #1 including PT and OT to cont She is far below her baseline and rehab at SNF is recommend (3) Prerenal azotemia Conclusion/Plan: Her labs again show volume depletion, elev BUN/creat ratio despite iv fluids (all labs reviewed) Plan: Cont iv fluids at a decreased rate and cont new PPN Avoid nephrotoxins Follow BMP daily (4) Severe protein-calorie malnutrition Conclusion/Plan: She has had 40 lb weight loss in 3 mos and is taking in <40 of her diet needs, causing severe weakness Her planned upper GI scope was to be done elsewhere and was postponed by the , because she was admitted here. Yesterday the informed me that the office of her gastric bypass Gasroenterolgy Surgeon Dr Wil Beauchamp advised the pt be transferred to on Hospitalist service so that her feeding tube could be implanted. I reached out to [facility] today, to have her transferred and was told there will be a several day delay until beds open up at . I updated the at bedside today. Plan: IV nutrition plus Lipids to continue Will change PPN to TPN and place a PICC line today by Anesthesia. I informed Cherrie dulser. Will await [facility] bed to open to accept her in transfer, for PEG insertion, which cannot be done here at [facility] since she has a complicated GI tract after having gastric bypass surgery (5) Hypernatremia Conclusion/Plan: From volume depletion and iv containing NS Plan: I will decrease her peripheral IV to TKO Will give higher rate of free water via the PPN then TPN infusions Follow BMP daily (6) Hypomagnesemia Conclusion/Plan: From inadequate intake Plan: Replace with Mg riders Follow Mg daily until normal (7) Hypokalemia Conclusion/Plan: From inadequate intake Plan: Replace with K riders, not po due to N/V Follow BMP daily (8) Iron deficiency anemia Conclusion/Plan: Likely from inadequate Iron intake Plan: Will give IV Iron Dextran x1 then start po Iron Will check stool guaic (9) Gastric bypass status for obesity Conclusion/Plan: She had gastric bypass in 2014. Then she had complications afterward: recurrent esoph stricture and needed 8 dilations, ongoing wt loss and malnutrition. Her upper GI scope was to be done 08/05 at another facility and has been postponed by the Possibly upper endocopy will be performed and dilate a stricture if needed, while she is at (10) N&V (nausea and vomiting) Conclusion/Plan: RESOLVED This is recurrent and likely due to repeat distal esophageal stricture, which has needed 8 dilatations in her past Plan: Anti-emetics prn Small meals/liquids iv hydration Clear liquid diet advance if tolerated Her upper GI scope has been postponed - Current Meds Current Meds: Current Medications Generic Name Dose Route Start Last Admin Trade Name Freq PRN Reason Stop Dose Admin Baclofen 10 mg 08/03/23 21:00 08/06/23 08:04 Baclofen 10 Mg Tablet PO 10 mg BID NEETU Administration Bupropion HCl 150 mg 08/03/23 21:00 08/06/23 08:04 Bupropion Sr 150 Mg Tablet PO 150 mg BID NEETU Administration Buspirone HCl 10 mg 08/03/23 21:00 08/06/23 08:04 Buspirone 5 Mg Tablet PO 10 mg BID NEETU Administration Duloxetine HCl 30 mg 08/03/23 21:00 08/06/23 08:04 Duloxetine 30 Mg Capsule PO 30 mg BID NEETU Administration Heparin Sodium (Porcine) 5,000 unit 08/03/23 21:00 08/06/23 08:06 Heparin 5,000 Unit/Ml Vial SUBQ 5,000 unit BID NEETU Administration Fat Emulsion Intravenous 250 mls @ 21 mls/hr 08/03/23 19:00 08/05/23 20:19 Intralipid 20% IV 21 mls/hr 1900 NEETU Administration Multivitamins 10 ml/ TRACE 2,011 mls @ 83 mls/hr 08/05/23 12:00 08/05/23 20:17 ELEMENTS 1 ml/ Amino Acids/ IV 83 mls/hr Electrolytes/Dextrose 1900 [facility] Administration Protocol Quetiapine Fumarate 50 mg 08/03/23 21:00 08/05/23 20:17 Quetiapine 25 Mg Tablet PO 50 mg QPM NEETU Administration Sodium Chloride 10 ml 08/03/23 17:00 08/06/23 08:04 Sodium Chloride Flush 0.9% 10 Ml Syringe IVP 10 ml 0100,0900,1700 [facility] Administration - Lab Result Fish Bone Diagrams: 08/03/23 16:14 08/06/23 05:19 - Additional Planning My Orders: My Active Orders 08/05/23 12:00 Multivitamin [Infuvite] 10 ml Trace Elements [Tralement Vial] 1 ml Ppn (Clinimix E 4.25/5) [Clinimix E 4.25%-5% Solution] 2,000 ml IV 1900 08/06/23 11:00 Sucralfate [Carafate] 1 gm PO 0700,1100,1600,2200 08/06/23 Lunch Full Liquid Diet [DIET] 08/06/23 11:33 PICC Line Insert [RC] .ONCE 08/06/23 12:00 Thiamine [Vitamin B-1] 100 mg PO DAILY 08/07/23 05:00 BMP - BASIC METABOLIC PANEL [CHEM] DAILYLAB CBC W/O DIFF (HEMOGRAM) [HEME] DAILYLAB 08/08/23 05:00 CBC W/O DIFF (HEMOGRAM) [HEME] DAILYLAB PREALBUMIN [CHEM] Routine 08/09/23 05:00 CBC W/O DIFF (HEMOGRAM) [HEME] DAILYLAB Subjective - Subjective Patient Reports: Feeling Better (She nods and says Yes to every comment that the and I say), Resting Comfortably Objective Vital Signs: Vital Signs - 24 hr 08/05/23 08/05/23 08/05/23 14:00 16:00 23:51 Temperature 36.5 C 36.7 C Heart Rate [ 99 97 Brachial] Heart Rate [ 103 H Sitting] Respiratory 16 20 Rate Blood Pressure 138/85 H 138/86 H [Right Brachial artery] Blood Pressure 131/76 H [Sitting] O2 Saturation 95 97 08/06/23 08:00 Temperature 37 C Heart Rate [ 97 Brachial] Heart Rate [ Sitting] Respiratory 18 Rate Blood Pressure 125/91 H [Right Brachial artery] Blood Pressure [Sitting] O2 Saturation 98 Oxygen O2 Source [With Activity] Room air O2 Source [Without Activity] Room air O2 Source Room air I&O (Last 24 Hrs): Intake and Output Totals x24h 08/04/23 08/05/23 08/06/23 23:59 23:59 23:59 Intake Total 735 3688.5 240 Output Total 1000 1300 375 Balance -265 2388.5 -135 General: Alert, No acute distress, Other (Cachectic) HEENT: Mucous membr. moist/pink Neck: Supple, No JVD Neuro: Alert, Non Focal, Other (She only nods and says Yes for communication, is able to feed herself, moves all extremities) Cardiovascular: Regular rate Respiratory: No respiratory distress Abdomen: Soft, No tenderness Extremities: No clubbing, No edema, No tenderness/swelling - Results Results: Laboratory Results WBC 7.9 x10^3/uL (4.8-10.8) 08/03/23 16:14 RBC 3.85 10^6/uL (4.20-5.40) L 08/03/23 16:14 Hgb 9.7 g/dL (12.0-16.0) L 08/03/23 16:14 Hct 30.4 % (37.0-47.0) L 08/03/23 16:14 MCV 79.0 fL (81.0-99.0) L 08/03/23 16:14 MCH 25.2 pg (27.0-31.0) L 08/03/23 16:14 MCHC 31.9 g/dL (32.0-36.0) L 08/03/23 16:14 RDW 20.0 % (12.0-15.0) H 08/03/23 16:14 Plt Count 212 10^3/uL (130-450) 08/03/23 16:14 MPV 9.9 fL (7.9-10.8) 08/03/23 16:14 Neut # (Auto) 6.8 10^3/uL (1.5-6.6) H 08/02/23 20:30 Lymph # (Auto) 2.1 10^3/uL (1.5-3.5) 08/02/23 20:30 [place] # (Auto) 0.5 10^3/uL (0.0-1.0) 08/02/23 20:30 Eos # (Auto) 0.0 10^3/uL (0.0-0.7) 08/02/23 20:30 Baso # (Auto) 0.0 10^3/uL (0.0-0.1) 08/02/23 20:30 Absolute Nucleated RBC 0.02 x10^3/uL 08/02/23 20:30 Nucleated RBC % 0.2 /100WBC 08/02/23 20:30 Manual Slide Review Indicated 08/02/23 20:30 WBC Morphology NORMAL APPEARANCE (NORMAL) 08/02/23 20:30 Platelet Estimate NORMAL (130-450,000) (NORMAL) 08/02/23 20:30 Platelet Morphology NORMAL APPEARANCE (NORMAL) 08/02/23 20:30 RBC Morph Micro Appear 1+ ANISOCYTOSIS (NORMAL) 1+ MICROCYTOSIS (NORMAL) 08/02/23 20:30 RBC Morph Micro Appear 1+ ANISOCYTOSIS (NORMAL) 1+ MICROCYTOSIS (NORMAL) 08/02/23 20:30 PT 10.8 secs (9.9-12.6) 08/04/23 05:04 INR 1.0 (0.8-1.2) 08/04/23 05:04 Sodium 136 mmol/L (135-145) 08/06/23 05:19 Potassium 3.4 mmol/L (3.5-4.5) L 08/06/23 05:19 Chloride 104 mmol/L (101-111) 08/06/23 05:19 Carbon Dioxide 25 mmol/L (21-32) 08/06/23 05:19 Anion Gap 7.0 (6-13) 08/06/23 05:19 BUN 21 mg/dL (6-20) H 08/06/23 05:19 Creatinine 0.7 mg/dL (0.6-1.3) 08/06/23 05:19 Estimated GFR (MDRD) 84 (>89) L 08/06/23 05:19 Glucose 127 mg/dL (74-104) H 08/06/23 05:19 Calcium 9.0 mg/dL (8.5-10.3) 08/06/23 05:19 Phosphorus 3.2 mg/dL (2.5-5.0) 08/04/23 05:04 Magnesium 1.7 mg/dL (1.7-2.3) 08/05/23 05:25 Iron 37 ug/dL (50-212) L 08/04/23 05:04 TIBC 210 ug/dL (250-450) L 08/04/23 05:04 % Saturation 18 % (20-50) L 08/04/23 05:04 Transferrin 150 mg/dL (203-362) L 08/04/23 05:04 Total Bilirubin 0.6 mg/dL (0.2-1.0) 08/02/23 21:04 AST 16 IU/L (10-42) 08/02/23 21:04 ALT 13 IU/L (10-60) 08/02/23 21:04 Alkaline Phosphatase 92 IU/L (42-121) 08/02/23 21:04 Total Protein 6.2 g/dL (6.4-8.9) L 08/02/23 21:04 Albumin 3.5 g/dL (3.2-5.5) 08/02/23 21:04 Globulin 2.7 g/dL (2.1-4.2) 08/02/23 21:04 Albumin/Globulin Ratio 1.3 (1.0-2.2) 08/02/23 21:04 Prealbumin 12 mg/dL (17-34) L 08/04/23 05:04 Triglycerides 279 mg/dL (48-352) 08/06/23 05:19 Lipase 35 U/L (11-82) 08/02/23 21:04 Vitamin B12 381 pg/mL (180-914) 08/04/23 05:04 Folate 11.0 ng/mL (5.90 - >24.8) 08/04/23 05:04 Urine Color YELLOW 08/04/23 09:35 Urine Clarity CLEAR (CLEAR) 08/04/23 09:35 Urine pH 6.0 PH (5.0-7.5) 08/04/23 09:35 Ur Specific [place] 1.020 (1.002-1.030) 08/04/23 09:35 Urine Protein NEGATIVE mg/dL (NEGATIVE) 08/04/23 09:35 Urine Glucose (UA) NEGATIVE mg/dL (NEGATIVE) 08/04/23 09:35 Urine Ketones 15 mg/dL (NEGATIVE) H 08/04/23 09:35 Urine Occult Blood NEGATIVE (NEGATIVE) 08/04/23 09:35 Urine Nitrite NEGATIVE (NEGATIVE) 08/04/23 09:35 Urine Bilirubin NEGATIVE (NEGATIVE) 08/04/23 09:35 Urine Urobilinogen 0.2 (NORMAL) E.U./dL (NORMAL) 08/04/23 09:35 Ur Leukocyte Esterase NEGATIVE (NEGATIVE) 08/04/23 09:35 Urine RBC 0-5 /HPF (0-5) 08/04/23 09:35 Urine WBC 0-3 /HPF (0-5) 08/04/23 09:35 Ur Squamous Epith Cells FEW Squamous (<= Few) 08/04/23 09:35 Urine Bacteria Rare /HPF (None Seen) 08/04/23 09:35 Ur Microscopic Review NOT INDICATED 08/03/23 02:14 Urine Culture Comments NOT INDICATED 08/04/23 09:35 Urine Opiates Screen NEGATIVE (NEGATIVE) 08/03/23 02:14 Ur Buprenorphine Scrn NEGATIVE (NEGATIVE) 08/03/23 02:14 Ur Oxycodone Screen NEGATIVE (NEGATIVE) 08/03/23 02:14 Urine Methadone Screen NEGATIVE (NEGATIVE) 08/03/23 02:14 Ur Barbiturates Screen NEGATIVE (NEGATIVE) 08/03/23 02:14 Ur Tricyclics Screen NEGATIVE (NEGATIVE) 08/03/23 02:14 Ur Phencyclidine Scrn NEGATIVE (NEGATIVE) 08/03/23 02:14 Ur Amphetamine Screen NEGATIVE (NEGATIVE) 08/03/23 02:14 U Methamphetamines Scrn NEGATIVE (NEGATIVE) 08/03/23 02:14 U Benzodiazepines Scrn NEGATIVE (NEGATIVE) 08/03/23 02:14 Urine Cocaine Screen NEGATIVE (NEGATIVE) 08/03/23 02:14 U Cannabinoids Screen POSITIVE (NEGATIVE) H 08/03/23 02:14 Ur Drug Screen Comment CUTOFF CONC BELOW: 08/03/23 02:14 - Procedures Procedures: Procedures EXCISION OF STOMACH, ENDO, DIAGN (09/16/17) INSERTION OF FEEDING DEVICE INTO JEJUNUM, VIA OPENING (07/22/15) INSPECTION OF LOWER INTESTINAL TRACT, ENDO (09/16/17) INTRAOPER CHOLANGIOGRAM (01/20/14) INTRODUCTION OF NUTRITIONAL INTO LOW GI, VIA OPENING (07/22/15) LAPAROSCOPIC CHOLECYSTECTOMY (01/20/14)
[2023-08-06] MEDS: SUCRALFATE 1 GM/10 ML UDC PO SCH ×3 (13:04→21:33)
[2023-08-06] MEDS: THIAMINE 100 MG TABLET PO SCH (13:10)
--- NOTE | 2023-08-06 13:31 | XRAY Report ---
PROCEDURE: Chest for Line Placement INDICATIONS: new PICC @R basilic v. TECHNIQUE: One view of the chest was acquired. COMPARISON: None. FINDINGS: Surgical changes and devices: The tip of a right arm PICC line projects in the superior vena cava.. Lungs and pleura: No pleural effusions or pneumothorax. Lungs are clear. Mediastinum: Mediastinal contours appear normal. Heart size is normal. Bones and chest wall: No suspicious bony lesions. Overlying soft tissues appear unremarkable. IMPRESSION: No acute cardiopulmonary process. Right arm PICC line tip projects to the superior vena cava. Reviewed by: Alex Dennison MD on 08/06/2023 1:30 PM PST Approved by: Alex Dennison MD on 08/06/2023 1:30 PM PST Station ID: [id number]
[2023-08-06] MEDS ORDERED: IRON DEXTRAN 1,000 MG in SODIUM CHLORIDE 0.9% 250 ML IV ONE (18:00)
[2023-08-06] MEDS ORDERED: SODIUM CHLORIDE 0.9% 250 ML IV ONE (18:24)
[2023-08-06] MEDS: TPN (CLINIMIX E 5/15) 2,000 ML with MULTIVITAMIN 10 ML, TRACE ELEMENTS 1 ML IV SCH ×3 (20:07)
[2023-08-06] MEDS: QUEtiapine 25 MG TABLET PO SCH (21:25)
[2023-08-07] MEDS: SODIUM CHLORIDE FLUSH 0.9% 10 ML SYRINGE IVP SCH ×3 (01:20→16:10)
[2023-08-07 06:02] LABS: HCT - HEMATOCRIT 25.7 % (37.0-47.0); HGB - HEMOGLOBIN 8.4 g/dL (12.0-16.0); MEAN CORPUSCULAR HEMOGLOBIN 25.2 pg (27.0-31.0); MEAN CORPUSCULAR HGB CONC 32.7 g/dL (32.0-36.0); MEAN CORPUSCULAR VOLUME 77.2 fL (81.0-99.0); MEAN PLATELET VOLUME 10.2 fL (7.9-10.8); RED BLOOD COUNT 3.33 10^6/uL (4.20-5.40); RED CELL DISTRIBUTION WIDTH 20.6 % (12.0-15.0); WHITE BLOOD COUNT 6.6 x10^3/uL (4.8-10.8)
[2023-08-07] MEDS: SUCRALFATE 1 GM/10 ML UDC PO SCH ×4 (06:03→22:05)
[2023-08-07 06:24] LABS: MAGNESIUM 1.8 mg/dL (1.7-2.3); PHOSPHORUS 3.6 mg/dL (2.5-5.0)
[2023-08-07 06:26] LABS: CALCIUM 9.1 mg/dL (8.5-10.3); CREATININE 0.7 mg/dL (0.6-1.3); POTASSIUM 3.1 mmol/L (3.5-4.5)
[2023-08-07] MEDS: DULoxetine 30 MG CAPSULE PO SCH ×2 (08:29→20:28)
[2023-08-07] MEDS: THIAMINE 100 MG TABLET PO SCH (08:29)
[2023-08-07] MEDS: busPIRone 5 MG TABLET PO SCH ×2 (08:29→20:29)
[2023-08-07] MEDS: BACLOFEN 10 MG TABLET PO SCH ×2 (08:29→20:29)
[2023-08-07] MEDS: buPROPion SR 150 MG TABLET PO SCH ×2 (08:29→20:29)
[2023-08-07] MEDS: HEPARIN 5,000 UNIT/ML VIAL SUBQ SCH ×2 (08:30→20:31)
[2023-08-07] MEDS: POTASSIUM CHLOR 10 MEQ/100 ML 10 MEQ/100 ML BAG IV SCH ×3 (08:30→10:37)
--- NOTE | 2023-08-07 18:52 | PROVIDER PROGRESS NOTE ---
Assessment/Plan - Problem List (1) Wernicke's syndrome Assessment/Plan: As per Neurol impression, she presented with confusion, ataxia and palsy, which was from Thiamine deficit from malabsorption caused by her gastric bypass surgery. She completed getting Thiamine (iv TID x8 doses) as was recommended by Neurologist who spoke to ED provider She has improvement daily: is awake, feeds herself, can follow directions, speaks in sentences, walks with PT and cranial nerves remain entirely intact. Plan: She is now on po Thiamine 100 mg daily, and cont other neurol advice Supportive care PT and OT to cont to work with her (2) Ataxia Conclusion/Plan: Her [id number] was abn in ER. She started working with PT and OT, who documented her ataxic gait Plan: As in #1 including PT and OT to cont She is far below her baseline and rehab at SNF is recommend (3) Severe protein-calorie malnutrition Conclusion/Plan: She has had 40 lb weight loss in 3 mos and is taking in <40 of her diet needs, causing severe weakness Her planned upper GI scope was to be done elsewhere and was postponed by the , because she was admitted here. The informed me that the office of a gastric surgeon Dr Wil Beauchamp advised the , that the pt be transferred to on Hospitalist service so that her feeding tube could be implanted. Yesterday I reached out to Transfer Center to reqwuest that transfer and the Hospitalist at [facility] (where they take complex cases), Dr Alba turned her down after speaking to his surgeons, stating that she was not complex enough, and advised we try Alejandra Roth or [place] if the implant is urgent. But he felt it was not urgent and that the pt should get several weeks of TPN first. Plan: IV nutrition plus Lipids to continue via a PICC line which was inserted yesterday by Anesthesia (4) Hypokalemia Conclusion/Plan: From inadequate intake Plan: Replace with K riders, not po due to N/V Follow BMP daily (5) Iron deficiency anemia Conclusion/Plan: Likely from inadequate Iron intake. She got IV Iron Dextran x1 yestreday 08/06 Plan: Will start po Iron daily, and may need vit C to absorb Fe Will check stool guaic (6) Gastric bypass status for obesity Conclusion/Plan: She had gastric bypass in 2014. Then she had complications afterward: recurrent esoph stricture and needed 8 dilations, ongoing wt loss and malnutrition. Her upper GI scope to dilate a stricture if needed, was to be done 08/05 at another facility and has been postponed by the (7) N&V (nausea and vomiting) Conclusion/Plan: RESOLVED This is recurrent and likely due to repeat distal esophageal stricture, which has needed 8 dilatations in her past Plan: Anti-emetics prn Small meals/liquids iv hydration Clear liquid diet advance if tolerated Her upper GI scope has been postponed (8) Prerenal azotemia Conclusion/Plan: RESOLVED Her labs again show volume depletion, elev BUN/creat ratio despite iv fluids (all labs reviewed) Plan: Cont iv fluids at a decreased rate and cont new PPN Avoid nephrotoxins Follow BMP daily (9) Hypernatremia Conclusion/Plan: RESOLVED It was from volume depletion and iv containing NS Plan: Peripheral IV fluids at TKO Will give higher rate of free water via the PPN then TPN infusions Follow BMP daily (10) Hypomagnesemia Conclusion/Plan: RESOLVED From inadequate intake Plan: Replace with Mg riders Follow Mg intermittently - Current Meds Current Meds: Current Medications Generic Name Dose Route Start Last Admin Trade Name Freq PRN Reason Stop Dose Admin Baclofen 10 mg 08/03/23 21:00 08/07/23 08:29 Baclofen 10 Mg Tablet PO 10 mg BID NEETU Administration Bupropion HCl 150 mg 08/03/23 21:00 08/07/23 08:29 Bupropion Sr 150 Mg Tablet PO 150 mg BID NEETU Administration Buspirone HCl 10 mg 08/03/23 21:00 08/07/23 08:29 Buspirone 5 Mg Tablet PO 10 mg BID NEETU Administration Duloxetine HCl 30 mg 08/03/23 21:00 08/07/23 08:29 Duloxetine 30 Mg Capsule PO 30 mg BID NEETU Administration Heparin Sodium (Porcine) 5,000 unit 08/03/23 21:00 08/07/23 08:30 Heparin 5,000 Unit/Ml Vial SUBQ 5,000 unit BID NEETU Administration Multivitamins 10 ml/ TRACE 2,011 mls @ 50 mls/hr 08/06/23 19:00 08/06/23 20:07 ELEMENTS 1 ml/ Amino Ac/ IV 50 mls/hr Electrol/Dextrose/Calcium 1900 NEETU Administration Protocol Quetiapine Fumarate 50 mg 08/03/23 21:00 08/06/23 21:25 Quetiapine 25 Mg Tablet PO 50 mg QPM NEETU Administration Sodium Chloride 10 ml 08/03/23 17:00 08/07/23 16:10 Sodium Chloride Flush 0.9% 10 Ml Syringe IVP 10 ml 0100,0900,1700 NEETU Administration Sucralfate 1 gm 08/06/23 11:00 08/07/23 16:09 Sucralfate 1 Gm/10 Ml Udc PO 1 gm 0700,1100,1600,2200 NEETU Administration Thiamine HCl 100 mg 08/06/23 12:00 08/07/23 08:29 Thiamine 100 Mg Tablet PO 100 mg DAILY NEETU Administration - Lab Result Fish Bone Diagrams: 08/07/23 05:43 08/07/23 05:43 - Additional Planning My Orders: My Active Orders 08/06/23 19:00 Multivitamin [Infuvite] 10 ml Trace Elements [Tralement Vial] 1 ml TPN (Clinimix E 5/15) [Clinimix E 5%-15% Solution] 2,000 ml IV 1900 08/07/23 19:00 Fat Emulsion 20% [Intralipid 20%] 250 ml IV Q48H 08/08/23 05:00 CBC W/O DIFF (HEMOGRAM) [HEME] DAILYLAB PREALBUMIN [CHEM] Routine 08/09/23 05:00 CBC W/O DIFF (HEMOGRAM) [HEME] DAILYLAB Subjective - Subjective Patient Reports: Feeling Better, Resting Comfortably Objective Vital Signs: Vital Signs - 24 hr 08/07/23 08/07/23 08/07/23 00:22 07:44 15:42 Temperature 36.6 C 36.7 C 36.7 C Heart Rate [ 87 83 87 Brachial] Respiratory 18 24 20 Rate Blood Pressure 125/72 140/71 H 135/78 H [Left Brachial artery] O2 Saturation 96 97 98 Oxygen O2 Source [With Activity] Room air O2 Source [Without Activity] Room air O2 Source Room air I&O (Last 24 Hrs): Intake and Output Totals x24h 08/05/23 08/06/23 08/07/23 23:59 23:59 23:59 Intake Total 3688.5 5000.2 760 Output Total 1300 925 200 Balance 2388.5 4075.2 560 General: Alert, Oriented x3, Other (Disheveled) HEENT: Mucous membr. moist/pink Neck: Supple, No JVD Neuro: Alert, Non Focal, Other (Poor memory) Cardiovascular: Regular rate Respiratory: No respiratory distress Abdomen: Soft, No tenderness Extremities: No clubbing, No edema, No tenderness/swelling - Results Results: Laboratory Results WBC 6.6 x10^3/uL (4.8-10.8) 08/07/23 05:43 RBC 3.33 10^6/uL (4.20-5.40) L 08/07/23 05:43 Hgb 8.4 g/dL (12.0-16.0) L 08/07/23 05:43 Hct 25.7 % (37.0-47.0) L 08/07/23 05:43 MCV 77.2 fL (81.0-99.0) L 08/07/23 05:43 MCH 25.2 pg (27.0-31.0) L 08/07/23 05:43 MCHC 32.7 g/dL (32.0-36.0) 08/07/23 05:43 RDW 20.6 % (12.0-15.0) H 08/07/23 05:43 Plt Count 166 10^3/uL (130-450) 08/07/23 05:43 MPV 10.2 fL (7.9-10.8) 08/07/23 05:43 Neut # (Auto) 6.8 10^3/uL (1.5-6.6) H 08/02/23 20:30 Lymph # (Auto) 2.1 10^3/uL (1.5-3.5) 08/02/23 20:30 [place] # (Auto) 0.5 10^3/uL (0.0-1.0) 08/02/23 20:30 Eos # (Auto) 0.0 10^3/uL (0.0-0.7) 08/02/23 20:30 Baso # (Auto) 0.0 10^3/uL (0.0-0.1) 08/02/23 20:30 Absolute Nucleated RBC 0.02 x10^3/uL 08/02/23 20:30 Nucleated RBC % 0.2 /100WBC 08/02/23 20:30 Manual Slide Review Indicated 08/02/23 20:30 WBC Morphology NORMAL APPEARANCE (NORMAL) 08/02/23 20:30 Platelet Estimate NORMAL (130-450,000) (NORMAL) 08/02/23 20:30 Platelet Morphology NORMAL APPEARANCE (NORMAL) 08/02/23 20:30 RBC Morph Micro Appear 1+ ANISOCYTOSIS (NORMAL) 1+ MICROCYTOSIS (NORMAL) 20:30 RBC Morph Micro Appear 1+ ANISOCYTOSIS (NORMAL) 1+ MICROCYTOSIS (NORMAL) 20:30 PT 10.8 secs (9.9-12.6) 08/04/23 05:04 INR 1.0 (0.8-1.2) 08/04/23 05:04 Sodium 138 mmol/L (135-145) 08/07/23 05:43 Potassium 3.1 mmol/L (3.5-4.5) L 08/07/23 05:43 Chloride 105 mmol/L (101-111) 08/07/23 05:43 Carbon Dioxide 25 mmol/L (21-32) 08/07/23 05:43 Anion Gap 8.0 (6-13) 08/07/23 05:43 BUN 20 mg/dL (6-20) 08/07/23 05:43 Creatinine 0.7 mg/dL (0.6-1.3) 08/07/23 05:43 Estimated GFR (MDRD) 84 (>89) L 08/07/23 05:43 Glucose 134 mg/dL (74-104) H 08/07/23 05:43 Calcium 9.1 mg/dL (8.5-10.3) 08/07/23 05:43 Phosphorus 3.6 mg/dL (2.5-5.0) 08/07/23 05:43 Magnesium 1.8 mg/dL (1.7-2.3) 08/07/23 05:43 Iron 37 ug/dL (50-212) L 08/04/23 05:04 TIBC 210 ug/dL (250-450) L 08/04/23 05:04 % Saturation 18 % (20-50) L 08/04/23 05:04 Transferrin 150 mg/dL (203-362) L 08/04/23 05:04 Total Bilirubin 0.6 mg/dL (0.2-1.0) 08/02/23 21:04 AST 16 IU/L (10-42) 08/02/23 21:04 ALT 13 IU/L (10-60) 08/02/23 21:04 Alkaline Phosphatase 92 IU/L (42-121) 08/02/23 21:04 Total Protein 6.2 g/dL (6.4-8.9) L 08/02/23 21:04 Albumin 3.5 g/dL (3.2-5.5) 08/02/23 21:04 Globulin 2.7 g/dL (2.1-4.2) 08/02/23 21:04 Albumin/Globulin Ratio 1.3 (1.0-2.2) 08/02/23 21:04 Prealbumin 10 mg/dL (17-34) L 08/07/23 05:43 Triglycerides 279 mg/dL (48-352) 08/06/23 05:19 Lipase 35 U/L (11-82) 08/02/23 21:04 Whole Bld Vitamin B1 <20.0 nmol/L (66.5-200.0) L 08/03/23 02:38 Vitamin B12 381 pg/mL (180-914) 08/04/23 05:04 Folate 11.0 ng/mL (5.90 - >24.8) 08/04/23 05:04 Urine Color YELLOW 08/04/23 09:35 Urine Clarity CLEAR (CLEAR) 08/04/23 09:35 Urine pH 6.0 PH (5.0-7.5) 08/04/23 09:35 Ur Specific [place] 1.020 (1.002-1.030) 08/04/23 09:35 Urine Protein NEGATIVE mg/dL (NEGATIVE) 08/04/23 09:35 Urine Glucose (UA) NEGATIVE mg/dL (NEGATIVE) 08/04/23 09:35 Urine Ketones 15 mg/dL (NEGATIVE) H 08/04/23 09:35 Urine Occult Blood NEGATIVE (NEGATIVE) 08/04/23 09:35 Urine Nitrite NEGATIVE (NEGATIVE) 08/04/23 09:35 Urine Bilirubin NEGATIVE (NEGATIVE) 08/04/23 09:35 Urine Urobilinogen 0.2 (NORMAL) E.U./dL (NORMAL) 08/04/23 09:35 Ur Leukocyte Esterase NEGATIVE (NEGATIVE) 08/04/23 09:35 Urine RBC 0-5 /HPF (0-5) 08/04/23 09:35 Urine WBC 0-3 /HPF (0-5) 08/04/23 09:35 Ur Squamous Epith Cells FEW Squamous (<= Few) 08/04/23 09:35 Urine Bacteria Rare /HPF (None Seen) 08/04/23 09:35 Ur Microscopic Review NOT INDICATED 08/03/23 02:14 Urine Culture Comments NOT INDICATED 08/04/23 09:35 Urine Opiates Screen NEGATIVE (NEGATIVE) 08/03/23 02:14 Ur Buprenorphine Scrn NEGATIVE (NEGATIVE) 08/03/23 02:14 Ur Oxycodone Screen NEGATIVE (NEGATIVE) 08/03/23 02:14 Urine Methadone Screen NEGATIVE (NEGATIVE) 08/03/23 02:14 Ur Barbiturates Screen NEGATIVE (NEGATIVE) 08/03/23 02:14 Ur Tricyclics Screen NEGATIVE (NEGATIVE) 08/03/23 02:14 Ur Phencyclidine Scrn NEGATIVE (NEGATIVE) 08/03/23 02:14 Ur Amphetamine Screen NEGATIVE (NEGATIVE) 08/03/23 02:14 U Methamphetamines Scrn NEGATIVE (NEGATIVE) 08/03/23 02:14 U Benzodiazepines Scrn NEGATIVE (NEGATIVE) 08/03/23 02:14 Urine Cocaine Screen NEGATIVE (NEGATIVE) 08/03/23 02:14 U Cannabinoids Screen POSITIVE (NEGATIVE) H 08/03/23 02:14 Ur Drug Screen Comment CUTOFF CONC BELOW: 08/03/23 02:14 - Procedures Procedures: Procedures EXCISION OF STOMACH, ENDO, DIAGN (09/16/17) INSERTION OF FEEDING DEVICE INTO JEJUNUM, VIA OPENING (07/22/15) INSPECTION OF LOWER INTESTINAL TRACT, ENDO (09/16/17) INTRAOPER CHOLANGIOGRAM (01/20/14) INTRODUCTION OF NUTRITIONAL INTO LOW GI, VIA OPENING (07/22/15) LAPAROSCOPIC CHOLECYSTECTOMY (01/20/14)
[2023-08-07] MEDS: TPN (CLINIMIX E 5/15) 2,000 ML with MULTIVITAMIN 10 ML, TRACE ELEMENTS 1 ML IV SCH ×3 (19:19)
[2023-08-07] MEDS: FAT EMULSION 20% 250 ML IV SCH (19:42)
[2023-08-07] MEDS: QUEtiapine 25 MG TABLET PO SCH (20:29)
[2023-08-08] MEDS: SODIUM CHLORIDE FLUSH 0.9% 10 ML SYRINGE IVP SCH ×3 (00:26→16:23)
[2023-08-08 05:54] LABS: HCT - HEMATOCRIT 25.5 % (37.0-47.0); HGB - HEMOGLOBIN 8.2 g/dL (12.0-16.0); MEAN CORPUSCULAR HEMOGLOBIN 25.9 pg (27.0-31.0); MEAN CORPUSCULAR HGB CONC 32.2 g/dL (32.0-36.0); MEAN CORPUSCULAR VOLUME 80.7 fL (81.0-99.0); MEAN PLATELET VOLUME 10.7 fL (7.9-10.8); RED BLOOD COUNT 3.16 10^6/uL (4.20-5.40); RED CELL DISTRIBUTION WIDTH 21.5 % (12.0-15.0); WHITE BLOOD COUNT 5.9 x10^3/uL (4.8-10.8)
[2023-08-08] MEDS: SUCRALFATE 1 GM/10 ML UDC PO SCH ×4 (06:30→21:42)
[2023-08-08 08:07] LABS: CALCIUM 9.1 mg/dL (8.5-10.3); CREATININE 0.7 mg/dL (0.6-1.3); POTASSIUM 3.3 mmol/L (3.5-4.5)
[2023-08-08] MEDS: busPIRone 5 MG TABLET PO SCH ×2 (08:57→21:43)
[2023-08-08] MEDS: BACLOFEN 10 MG TABLET PO SCH ×2 (08:57→21:42)
[2023-08-08] MEDS: THIAMINE 100 MG TABLET PO SCH (08:57)
[2023-08-08] MEDS: buPROPion SR 150 MG TABLET PO SCH ×2 (08:57→21:43)
[2023-08-08] MEDS: DULoxetine 30 MG CAPSULE PO SCH ×2 (08:58→21:43)
[2023-08-08] MEDS: HEPARIN 5,000 UNIT/ML VIAL SUBQ SCH ×2 (08:58→21:46)
--- NOTE | 2023-08-08 15:36 | PROVIDER PROGRESS NOTE ---
Assessment/Plan - Problem List (1) Wernicke's syndrome Assessment/Plan: As per Neurol impression, she presented with confusion, ataxia and palsy, which was from Thiamine deficit from malabsorption caused by her remote gastric bypass surgery. She completed getting Thiamine (iv TID x8 doses) as was recommended by Neurologist who spoke to ED provider She has improvement daily: is awake, feeds herself, can follow directions, speaks in sentences, walks with PT and cranial nerves remain entirely intact. Plan: She is now on po Thiamine 100 mg daily, and cont other neurol advice Supportive care PT and OT to cont to work with her (2) Ataxia Conclusion/Plan: Her [id number] was abn in ER. She started working with PT and OT, who documented her ataxic gait Plan: As in #1 including PT and OT to cont She is far below her baseline and rehab at SNF is recommend (3) Severe protein-calorie malnutrition Conclusion/Plan: She has had 40 lb weight loss in 3 mos and is taking in <40 of her diet needs, causing severe weakness Her planned upper GI scope was to be done elsewhere and was postponed by the , because she was admitted here. The informed me that the office of a gastric surgeon Dr Wil Beauchamp advised the , that the pt be transferred to on Hospitalist service so that her feeding tube could be implanted. When I reached out to Transfer Center to request that transfer, we were tuned down by the Hospitalist at [facility] (where they take complex cases), after speaking to his surgeons, stating that she was not complex enough, and ge advised we try Alejandra Roth or [place] if the implant is urgent. But he felt it was not urgent and that the pt should get several weeks of TPN first. Plan: IV nutrition plus Lipids to continue via a PICC line which was inserted yesterday by Anesthesia I will start reaching out to [facility] and [facility] (4) Hypokalemia Conclusion/Plan: From inadequate intake Plan: Replace with K riders, not po due to N/V Follow BMP daily (5) Iron deficiency anemia Conclusion/Plan: Likely from inadequate Iron intake. She got IV Iron Dextran x1 yestreday 08/06 Plan: Will start po Iron daily, and will need vit C to better absorb Fe Will check stool guaic (6) Gastric bypass status for obesity Conclusion/Plan: She had gastric bypass in 2014. Then she had complications afterward: recurrent esoph stricture and needed 8 dilations, ongoing wt loss and malnutrition. Her upper GI scope to dilate a stricture if needed, was to be done 08/05 at another facility and has been postponed by the (7) N&V (nausea and vomiting) Conclusion/Plan: RESOLVED This is recurrent and likely due to repeat distal esophageal stricture, which has needed 8 dilatations in her past Plan: Anti-emetics prn Small meals/liquids iv hydration Clear liquid diet advance if tolerated Her upper GI scope has been postponed (8) Prerenal azotemia Conclusion/Plan: RESOLVED Her labs again show volume depletion, elev BUN/creat ratio despite iv fluids (all labs reviewed) Plan: Cont iv fluids at a decreased rate and cont new PPN Avoid nephrotoxins Follow BMP daily (9) Hypernatremia Conclusion/Plan: RESOLVED It was from volume depletion and iv containing NS Plan: Peripheral IV fluids at TKO Will give higher rate of free water via the PPN then TPN infusions Follow BMP daily (10) Hypomagnesemia Conclusion/Plan: RESOLVED From inadequate intake Plan: Replace with Mg riders Follow Mg intermittently - Current Meds Current Meds: Current Medications Generic Name Dose Route Start Last Admin Trade Name Freq PRN Reason Stop Dose Admin Baclofen 10 mg 08/03/23 21:00 08/08/23 08:57 Baclofen 10 Mg Tablet PO 10 mg BID NEETU Administration Bupropion HCl 150 mg 08/03/23 21:00 08/08/23 08:57 Bupropion Sr 150 Mg Tablet PO 150 mg BID NEETU Administration Buspirone HCl 10 mg 08/03/23 21:00 08/08/23 08:57 Buspirone 5 Mg Tablet PO 10 mg BID NEETU Administration Duloxetine HCl 30 mg 08/03/23 21:00 08/08/23 08:58 Duloxetine 30 Mg Capsule PO 30 mg BID NEETU Administration Heparin Sodium (Porcine) 5,000 unit 08/03/23 21:00 08/08/23 08:58 Heparin 5,000 Unit/Ml Vial SUBQ 5,000 unit BID NEETU Administration Multivitamins 10 ml/ TRACE 2,011 mls @ 50 mls/hr 08/06/23 19:00 08/07/23 19:19 ELEMENTS 1 ml/ Amino Ac/ IV 50 mls/hr Electrol/Dextrose/Calcium 1900 NEETU Administration Protocol Fat Emulsion Intravenous 250 mls @ 21 mls/hr 08/07/23 19:00 08/08/23 07:45 Intralipid 20% IV Infused Q48H NEETU Infusion Quetiapine Fumarate 50 mg 08/03/23 21:00 08/07/23 20:29 Quetiapine 25 Mg Tablet PO 50 mg QPM NEETU Administration Sodium Chloride 10 ml 08/03/23 17:00 08/08/23 09:29 Sodium Chloride Flush 0.9% 10 Ml Syringe IVP Not Given 0100,0900,1700 [facility] Sucralfate 1 gm 08/06/23 11:00 08/08/23 10:46 Sucralfate 1 Gm/10 Ml Udc PO 1 gm 0700,1100,1600,2200 NEETU Administration Thiamine HCl 100 mg 08/06/23 12:00 08/08/23 08:57 Thiamine 100 Mg Tablet PO 100 mg DAILY NEETU Administration - Lab Result Fish Bone Diagrams: 08/08/23 05:37 08/08/23 05:37 - Additional Planning My Orders: My Active Orders 08/07/23 19:00 Fat Emulsion 20% [Intralipid 20%] 250 ml IV Q48H 08/09/23 05:00 BMP - BASIC METABOLIC PANEL [CHEM] DAILYLAB CBC W/O DIFF (HEMOGRAM) [HEME] DAILYLAB MG [MAGNESIUM] [CHEM] DAILYLAB 08/10/23 05:00 BMP - BASIC METABOLIC PANEL [CHEM] DAILYLAB 08/11/23 05:00 BMP - BASIC METABOLIC PANEL [CHEM] DAILYLAB Subjective - Subjective Patient Reports: Feeling Better, Resting Comfortably Objective Vital Signs: Vital Signs - 24 hr 08/07/23 08/07/23 08/08/23 15:42 23:59 07:43 Temperature 36.7 C 36.7 C 36.6 C Heart Rate [ 87 91 95 Brachial] Respiratory 20 18 18 Rate Blood Pressure 135/78 H 125/77 152/89 H [Left Brachial artery] O2 Saturation 98 93 96 Oxygen O2 Source [With Activity] Room air O2 Source [Without Activity] Room air O2 Source Room air I&O (Last 24 Hrs): Intake and Output Totals x24h 08/06/23 08/07/23 08/08/23 23:59 23:59 23:59 Intake Total 5000.2 2020 450 Output Total 925 400 550 Balance 4075.2 1620 -100 General: Alert, No acute distress, Other (Disheveled) HEENT: Mucous membr. moist/pink, Other (sunken eyes. ashen skin) Neck: Supple Neuro: Alert, Non Focal, Other (poor memory) Cardiovascular: Regular rate Respiratory: No respiratory distress Abdomen: Soft, No tenderness Extremities: No clubbing, No edema - Results Results: Laboratory Results WBC 5.9 x10^3/uL (4.8-10.8) 08/08/23 05:37 RBC 3.16 10^6/uL (4.20-5.40) L 08/08/23 05:37 Hgb 8.2 g/dL (12.0-16.0) L 08/08/23 05:37 Hct 25.5 % (37.0-47.0) L 08/08/23 05:37 MCV 80.7 fL (81.0-99.0) L 08/08/23 05:37 MCH 25.9 pg (27.0-31.0) L 08/08/23 05:37 MCHC 32.2 g/dL (32.0-36.0) 08/08/23 05:37 RDW 21.5 % (12.0-15.0) H 08/08/23 05:37 Plt Count 196 10^3/uL (130-450) 08/08/23 05:37 MPV 10.7 fL (7.9-10.8) 08/08/23 05:37 Neut # (Auto) 6.8 10^3/uL (1.5-6.6) H 08/02/23 20:30 Lymph # (Auto) 2.1 10^3/uL (1.5-3.5) 08/02/23 20:30 [place] # (Auto) 0.5 10^3/uL (0.0-1.0) 08/02/23 20:30 Eos # (Auto) 0.0 10^3/uL (0.0-0.7) 08/02/23 20:30 Baso # (Auto) 0.0 10^3/uL (0.0-0.1) 08/02/23 20:30 Absolute Nucleated RBC 0.02 x10^3/uL 08/02/23 20:30 Nucleated RBC % 0.2 /100WBC 08/02/23 20:30 Manual Slide Review Indicated 08/02/23 20:30 WBC Morphology NORMAL APPEARANCE (NORMAL) 08/02/23 20:30 Platelet Estimate NORMAL (130-450,000) (NORMAL) 08/02/23 20:30 Platelet Morphology NORMAL APPEARANCE (NORMAL) 08/02/23 20:30 RBC Morph Micro Appear 1+ ANISOCYTOSIS (NORMAL) 1+ MICROCYTOSIS (NORMAL) 08/02/23 20:30 RBC Morph Micro Appear 1+ ANISOCYTOSIS (NORMAL) 1+ MICROCYTOSIS (NORMAL) 08/02/23 20:30 PT 10.8 secs (9.9-12.6) 08/04/23 05:04 INR 1.0 (0.8-1.2) 08/04/23 05:04 Sodium 138 mmol/L (135-145) 08/08/23 05:37 Potassium 3.3 mmol/L (3.5-4.5) L 08/08/23 05:37 Chloride 105 mmol/L (101-111) 08/08/23 05:37 Carbon Dioxide 25 mmol/L (21-32) 08/08/23 05:37 Anion Gap 8.0 (6-13) 08/08/23 05:37 BUN 16 mg/dL (6-20) 08/08/23 05:37 Creatinine 0.7 mg/dL (0.6-1.3) 08/08/23 05:37 Estimated GFR (MDRD) 84 (>89) L 08/08/23 05:37 Glucose 121 mg/dL (74-104) H 08/08/23 05:37 Calcium 9.1 mg/dL (8.5-10.3) 08/08/23 05:37 Phosphorus 3.6 mg/dL (2.5-5.0) 08/07/23 05:43 Magnesium 1.8 mg/dL (1.7-2.3) 08/07/23 05:43 Iron 37 ug/dL (50-212) L 08/04/23 05:04 TIBC 210 ug/dL (250-450) L 08/04/23 05:04 % Saturation 18 % (20-50) L 08/04/23 05:04 Transferrin 150 mg/dL (203-362) L 08/04/23 05:04 Total Bilirubin 0.6 mg/dL (0.2-1.0) 08/02/23 21:04 AST 16 IU/L (10-42) 08/02/23 21:04 ALT 13 IU/L (10-60) 08/02/23 21:04 Alkaline Phosphatase 92 IU/L (42-121) 08/02/23 21:04 Total Protein 6.2 g/dL (6.4-8.9) L 08/02/23 21:04 Albumin 3.5 g/dL (3.2-5.5) 08/02/23 21:04 Globulin 2.7 g/dL (2.1-4.2) 08/02/23 21:04 Albumin/Globulin Ratio 1.3 (1.0-2.2) 08/02/23 21:04 Prealbumin 10 mg/dL (17-34) L 08/08/23 05:37 Triglycerides 279 mg/dL (48-352) 08/06/23 05:19 Lipase 35 U/L (11-82) 08/02/23 21:04 Whole Bld Vitamin B1 <20.0 nmol/L (66.5-200.0) L 08/03/23 02:38 Vitamin B12 381 pg/mL (180-914) 08/04/23 05:04 Folate 11.0 ng/mL (5.90 - >24.8) 08/04/23 05:04 Urine Color YELLOW 08/04/23 09:35 Urine Clarity CLEAR (CLEAR) 08/04/23 09:35 Urine pH 6.0 PH (5.0-7.5) 08/04/23 09:35 Ur Specific [place] 1.020 (1.002-1.030) 08/04/23 09:35 Urine Protein NEGATIVE mg/dL (NEGATIVE) 08/04/23 09:35 Urine Glucose (UA) NEGATIVE mg/dL (NEGATIVE) 08/04/23 09:35 Urine Ketones 15 mg/dL (NEGATIVE) H 08/04/23 09:35 Urine Occult Blood NEGATIVE (NEGATIVE) 08/04/23 09:35 Urine Nitrite NEGATIVE (NEGATIVE) 08/04/23 09:35 Urine Bilirubin NEGATIVE (NEGATIVE) 08/04/23 09:35 Urine Urobilinogen 0.2 (NORMAL) E.U./dL (NORMAL) 08/04/23 09:35 Ur Leukocyte Esterase NEGATIVE (NEGATIVE) 08/04/23 09:35 Urine RBC 0-5 /HPF (0-5) 08/04/23 09:35 Urine WBC 0-3 /HPF (0-5) 08/04/23 09:35 Ur Squamous Epith Cells FEW Squamous (<= Few) 08/04/23 09:35 Urine Bacteria Rare /HPF (None Seen) 08/04/23 09:35 Ur Microscopic Review NOT INDICATED 08/03/23 02:14 Urine Culture Comments NOT INDICATED 08/04/23 09:35 Urine Opiates Screen NEGATIVE (NEGATIVE) 08/03/23 02:14 Ur Buprenorphine Scrn NEGATIVE (NEGATIVE) 08/03/23 02:14 Ur Oxycodone Screen NEGATIVE (NEGATIVE) 08/03/23 02:14 Urine Methadone Screen NEGATIVE (NEGATIVE) 08/03/23 02:14 Ur Barbiturates Screen NEGATIVE (NEGATIVE) 08/03/23 02:14 Ur Tricyclics Screen NEGATIVE (NEGATIVE) 08/03/23 02:14 Ur Phencyclidine Scrn NEGATIVE (NEGATIVE) 08/03/23 02:14 Ur Amphetamine Screen NEGATIVE (NEGATIVE) 08/03/23 02:14 U Methamphetamines Scrn NEGATIVE (NEGATIVE) 08/03/23 02:14 U Benzodiazepines Scrn NEGATIVE (NEGATIVE) 08/03/23 02:14 Urine Cocaine Screen NEGATIVE (NEGATIVE) 08/03/23 02:14 U Cannabinoids Screen POSITIVE (NEGATIVE) H 08/03/23 02:14 Ur Drug Screen Comment CUTOFF CONC BELOW: 08/03/23 02:14 - Procedures Procedures: Procedures EXCISION OF STOMACH, ENDO, DIAGN (09/16/17) INSERTION OF FEEDING DEVICE INTO JEJUNUM, VIA OPENING (07/22/15) INSPECTION OF LOWER INTESTINAL TRACT, ENDO (09/16/17) INTRAOPER CHOLANGIOGRAM (01/20/14) INTRODUCTION OF NUTRITIONAL INTO LOW GI, VIA OPENING (07/22/15) LAPAROSCOPIC CHOLECYSTECTOMY (01/20/14)
[2023-08-08] MEDS: TPN (CLINIMIX E 5/15) 2,000 ML with MULTIVITAMIN 10 ML, TRACE ELEMENTS 1 ML IV SCH ×3 (18:41)
[2023-08-08] MEDS: QUEtiapine 25 MG TABLET PO SCH (21:43)
[2023-08-09] MEDS: SODIUM CHLORIDE FLUSH 0.9% 10 ML SYRINGE IVP SCH ×3 (01:39→16:09)
[2023-08-09] MEDS: SUCRALFATE 1 GM/10 ML UDC PO SCH ×4 (06:08→21:31)
[2023-08-09 06:24] LABS: HCT - HEMATOCRIT 24.6 % (37.0-47.0); HGB - HEMOGLOBIN 7.8 g/dL (12.0-16.0); MEAN CORPUSCULAR HEMOGLOBIN 25.6 pg (27.0-31.0); MEAN CORPUSCULAR HGB CONC 31.7 g/dL (32.0-36.0); MEAN CORPUSCULAR VOLUME 80.7 fL (81.0-99.0); MEAN PLATELET VOLUME 10.4 fL (7.9-10.8); RED BLOOD COUNT 3.05 10^6/uL (4.20-5.40); RED CELL DISTRIBUTION WIDTH 22.2 % (12.0-15.0); WHITE BLOOD COUNT 5.5 x10^3/uL (4.8-10.8)
[2023-08-09 07:02] LABS: CALCIUM 9.1 mg/dL (8.5-10.3); CREATININE 0.6 mg/dL (0.6-1.3); MAGNESIUM 1.9 mg/dL (1.7-2.3); POTASSIUM 3.4 mmol/L (3.5-4.5)
--- NOTE | 2023-08-09 08:11 | PROVIDER PROGRESS NOTE ---
Assessment/Plan - Problem List (1) Wernicke's syndrome Assessment/Plan: As per Neurol impression, she presented with confusion, ataxia and palsy, which was from Thiamine deficit from malabsorption caused by her remote gastric bypass surgery. She completed getting Thiamine (iv TID x8 doses) as was recommended by Neurologist who spoke to ED provider She has improvement daily: is awake, feeds herself, can follow directions, speaks in sentences, walks with PT and cranial nerves remain entirely intact. Plan: She is now on po Thiamine 100 mg daily, and cont other neurol advice Supportive care PT and OT to cont to work with her (2) Ataxia Conclusion/Plan: Her hyzhzq-rxzl-qanupc was abn in ER. She started working with PT and OT, who documented her ataxic gait Plan: As in #1 including PT and OT to cont She is far below her baseline and rehab at SNF is recommend (3) Severe protein-calorie malnutrition Conclusion/Plan: She has had 40 lb weight loss in 3 mos and is taking in <40 of her diet needs, causing severe weakness Her planned upper GI scope (for repeat esophageal dilation) was to be done elsewhere and was postponed by the , because she was admitted here. The informed me that the office of her gastric surgeon Dr Wil Beauchamp told the , that the pt could be transferred to on Hosp italist service so that her feeding tube could be implanted. When I reached out to Transfer Center to request that transfer, we were turned down by the Hospitalist at [facility] (where they take complex cases), because after speaking to his surgeons, she was not complex enough, and he advised we try [facility] or [facility], if the implant is urgent. But that Hospitalist and his surgeons felt a PEG tube implant was not urgent and that the pt should get several weeks of TPN first. I updated the . Plan: IV nutrition plus Lipids to continue via a PICC line which was inserted by Anesthesia Will work with Case Management re where she can have continuous TPN given, when she is otherwise ready for DCh, in case she does not get transferred for a PEG insertion and an EGD (for esophageal dilation). (4) Iron deficiency anemia Conclusion/Plan: She has normal B12 and folate stores and extremely low iron stores. Likely from inadequate Iron intake. She got IV Iron Dextran x1 on 08/06 Her Hgb has dropped from 12 at adm on 08/03 down to 7.8 today from being many L pos in fluid balance Plan: Cont po Iron daily, and po vit C to better absorb Fe I ordered a stool guaic She may need to be transfused blood soon, if Hgb drop below 7. I will order a type and cross match. (5) Hypokalemia Conclusion/Plan: From inadequate intake Plan: Replace, will try with liquid KCL today Follow BMP daily (6) Gastric bypass status for obesity Conclusion/Plan: She had gastric bypass in 2014. Then she had complications afterward: recurrent esoph stricture and needed 8 dilations, ongoing wt loss and malnutrition. Her upper GI scope to dilate a stricture if needed, was to be done 08/05 at another facility and has been postponed by the (7) Hypomagnesemia Conclusion/Plan: RESOLVED From inadequate intake Plan: Replace with Mg riders Follow Mg intermittently (8) N&V (nausea and vomiting) Conclusion/Plan: RESOLVED This is recurrent and likely due to repeat distal esophageal stricture, which has needed 8 dilatations in her past Plan: Anti-emetics prn Small meals/liquids Her upper GI scope has been postponed (9) Prerenal azotemia Conclusion/Plan: RESOLVED Plan: Cont new TPN I will stop peripheral iv at TKO Avoid nephrotoxins Follow BMP daily (10) Hypernatremia Conclusion/Plan: RESOLVED It was from volume depletion and iv containing NS Plan: I will stop peripheral iv at TKO Follow BMP daily - Current Meds Current Meds: Current Medications Generic Name Dose Route Start Last Admin Trade Name Kati PRN Reason Stop Dose Admin Baclofen 10 mg 08/03/23 21:00 08/08/23 21:42 Baclofen 10 Mg Tablet PO 10 mg BID NEETU Administration Bupropion HCl 150 mg 08/03/23 21:00 08/08/23 21:43 Bupropion Sr 150 Mg Tablet PO 150 mg BID NEETU Administration Buspirone HCl 10 mg 08/03/23 21:00 08/08/23 21:43 Buspirone 5 Mg Tablet PO 10 mg BID NEETU Administration Duloxetine HCl 30 mg 08/03/23 21:00 08/08/23 21:43 Duloxetine 30 Mg Capsule PO 30 mg BID NEETU Administration Heparin Sodium (Porcine) 5,000 unit 08/03/23 21:00 08/08/23 21:46 Heparin 5,000 Unit/Ml Vial SUBQ 5,000 unit BID NEETU Administration Multivitamins 10 ml/ TRACE 2,011 mls @ 50 mls/hr 08/06/23 19:00 08/08/23 18:41 ELEMENTS 1 ml/ Amino Ac/ IV 50 mls/hr Electrol/Dextrose/Calcium 1900 NEETU Administration Protocol Fat Emulsion Intravenous 250 mls @ 21 mls/hr 08/07/23 19:00 08/08/23 07:45 Intralipid 20% IV Infused Q48H NEETU Infusion Quetiapine Fumarate 50 mg 08/03/23 21:00 08/08/23 21:43 Quetiapine 25 Mg Tablet PO 50 mg QPM NEETU Administration Sodium Chloride 10 ml 08/03/23 17:00 08/09/23 01:39 Sodium Chloride Flush 0.9% 10 Ml Syringe IVP 10 ml 0100,0900,1700 NEETU Administration Sucralfate 1 gm 08/06/23 11:00 08/09/23 06:08 Sucralfate 1 Gm/10 Ml Udc PO 1 gm 0700,1100,1600,2200 NEETU Administration Thiamine HCl 100 mg 08/06/23 12:00 08/08/23 08:57 Thiamine 100 Mg Tablet PO 100 mg DAILY NEETU Administration - Lab Result Fish Bone Diagrams: 08/09/23 05:08 08/09/23 05:08 - Additional Planning My Orders: My Active Orders 08/09/23 09:00 Ascorbic Acid [Vitamin C] 500 mg PO DAILY 08/10/23 05:00 BMP - BASIC METABOLIC PANEL [CHEM] DAILYLAB 08/11/23 05:00 BMP - BASIC METABOLIC PANEL [CHEM] DAILYLAB Subjective - Subjective Patient Reports: Resting Comfortably, No Complaints Objective Vital Signs: Vital Signs - 24 hr 08/08/23 08/09/23 16:00 01:40 Temperature 36.9 C 36.6 C Heart Rate [ 96 88 Brachial] Respiratory 20 19 Rate Blood Pressure 137/89 H 111/72 [Left Brachial artery] O2 Saturation 95 97 Oxygen O2 Source [With Activity] Room air O2 Source [Without Activity] Room air O2 Source Room air I&O (Last 24 Hrs): Intake and Output Totals x24h 08/07/23 08/08/23 08/09/23 23:59 23:59 23:59 Intake Total 2020 2308.333 0 Output Total 400 650 400 Balance 1620 1658.333 -400 General: Alert, No acute distress HEENT: Mucous membr. moist/pink, Other (Disheveled) Neck: Supple Neuro: Alert, Disoriented, Non Focal Cardiovascular: No murmurs Respiratory: No respiratory distress Abdomen: Normal bowel sounds, Soft Extremities: No clubbing, No edema, No tenderness/swelling - Results Results: Laboratory Results WBC 5.5 x10^3/uL (4.8-10.8) 08/09/23 05:08 RBC 3.05 10^6/uL (4.20-5.40) L 08/09/23 05:08 Hgb 7.8 g/dL (12.0-16.0) L 08/09/23 05:08 Hct 24.6 % (37.0-47.0) L 08/09/23 05:08 MCV 80.7 fL (81.0-99.0) L 08/09/23 05:08 MCH 25.6 pg (27.0-31.0) L 08/09/23 05:08 MCHC 31.7 g/dL (32.0-36.0) L 08/09/23 05:08 RDW 22.2 % (12.0-15.0) H 08/09/23 05:08 Plt Count 281 10^3/uL (130-450) 08/09/23 05:08 MPV 10.4 fL (7.9-10.8) 08/09/23 05:08 Neut # (Auto) 6.8 10^3/uL (1.5-6.6) H 08/02/23 20:30 Lymph # (Auto) 2.1 10^3/uL (1.5-3.5) 08/02/23 20:30 Long # (Auto) 0.5 10^3/uL (0.0-1.0) 08/02/23 20:30 Eos # (Auto) 0.0 10^3/uL (0.0-0.7) 08/02/23 20:30 Baso # (Auto) 0.0 10^3/uL (0.0-0.1) 08/02/23 20:30 Absolute Nucleated RBC 0.02 x10^3/uL 08/02/23 20:30 Nucleated RBC % 0.2 /100WBC 08/02/23 20:30 Manual Slide Review Indicated 08/02/23 20:30 WBC Morphology NORMAL APPEARANCE (NORMAL) 08/02/23 20:30 Platelet Estimate NORMAL (130-450,000) (NORMAL) 08/02/23 20:30 Platelet Morphology NORMAL APPEARANCE (NORMAL) 08/02/23 20:30 RBC Morph Micro Appear 1+ ANISOCYTOSIS (NORMAL) 1+ MICROCYTOSIS (NORMAL) 08/02/23 20:30 RBC Morph Micro Appear 1+ ANISOCYTOSIS (NORMAL) 1+ MICROCYTOSIS (NORMAL) 08/02/23 20:30 PT 10.8 secs (9.9-12.6) 08/04/23 05:04 INR 1.0 (0.8-1.2) 08/04/23 05:04 Sodium 139 mmol/L (135-145) 08/09/23 05:08 Potassium 3.4 mmol/L (3.5-4.5) L 08/09/23 05:08 Chloride 106 mmol/L (101-111) 08/09/23 05:08 Carbon Dioxide 27 mmol/L (21-32) 08/09/23 05:08 Anion Gap 6.0 (6-13) 08/09/23 05:08 BUN 17 mg/dL (6-20) 08/09/23 05:08 Creatinine 0.6 mg/dL (0.6-1.3) 08/09/23 05:08 Estimated GFR (MDRD) 101 (>89) 08/09/23 05:08 Glucose 118 mg/dL (74-104) H 08/09/23 05:08 Calcium 9.1 mg/dL (8.5-10.3) 08/09/23 05:08 Phosphorus 3.6 mg/dL (2.5-5.0) 08/07/23 05:43 Magnesium 1.9 mg/dL (1.7-2.3) 08/09/23 05:08 Iron 37 ug/dL (50-212) L 08/04/23 05:04 TIBC 210 ug/dL (250-450) L 08/04/23 05:04 % Saturation 18 % (20-50) L 08/04/23 05:04 Transferrin 150 mg/dL (203-362) L 08/04/23 05:04 Total Bilirubin 0.6 mg/dL (0.2-1.0) 08/02/23 21:04 AST 16 IU/L (10-42) 08/02/23 21:04 ALT 13 IU/L (10-60) 08/02/23 21:04 Alkaline Phosphatase 92 IU/L (42-121) 08/02/23 21:04 Total Protein 6.2 g/dL (6.4-8.9) L 08/02/23 21:04 Albumin 3.5 g/dL (3.2-5.5) 08/02/23 21:04 Globulin 2.7 g/dL (2.1-4.2) 08/02/23 21:04 Albumin/Globulin Ratio 1.3 (1.0-2.2) 08/02/23 21:04 Prealbumin 10 mg/dL (17-34) L 08/08/23 05:37 Triglycerides 279 mg/dL (48-352) 08/06/23 05:19 Lipase 35 U/L (11-82) 08/02/23 21:04 Whole Bld Vitamin B1 <20.0 nmol/L (66.5-200.0) L 08/03/23 02:38 Vitamin B12 381 pg/mL (180-914) 08/04/23 05:04 Folate 11.0 ng/mL (5.90 - >24.8) 08/04/23 05:04 Urine Color YELLOW 08/04/23 09:35 Urine Clarity CLEAR (CLEAR) 08/04/23 09:35 Urine pH 6.0 PH (5.0-7.5) 08/04/23 09:35 Ur Specific [place] 1.020 (1.002-1.030) 08/04/23 09:35 Urine Protein NEGATIVE mg/dL (NEGATIVE) 08/04/23 09:35 Urine Glucose (UA) NEGATIVE mg/dL (NEGATIVE) 08/04/23 09:35 Urine Ketones 15 mg/dL (NEGATIVE) H 08/04/23 09:35 Urine Occult Blood NEGATIVE (NEGATIVE) 08/04/23 09:35 Urine Nitrite NEGATIVE (NEGATIVE) 08/04/23 09:35 Urine Bilirubin NEGATIVE (NEGATIVE) 08/04/23 09:35 Urine Urobilinogen 0.2 (NORMAL) E.U./dL (NORMAL) 08/04/23 09:35 Ur Leukocyte Esterase NEGATIVE (NEGATIVE) 08/04/23 09:35 Urine RBC 0-5 /HPF (0-5) 08/04/23 09:35 Urine WBC 0-3 /HPF (0-5) 08/04/23 09:35 Ur Squamous Epith Cells FEW Squamous (<= Few) 08/04/23 09:35 Urine Bacteria Rare /HPF (None Seen) 08/04/23 09:35 Ur Microscopic Review NOT INDICATED 08/03/23 02:14 Urine Culture Comments NOT INDICATED 08/04/23 09:35 Urine Opiates Screen NEGATIVE (NEGATIVE) 08/03/23 02:14 Ur Buprenorphine Scrn NEGATIVE (NEGATIVE) 08/03/23 02:14 Ur Oxycodone Screen NEGATIVE (NEGATIVE) 08/03/23 02:14 Urine Methadone Screen NEGATIVE (NEGATIVE) 08/03/23 02:14 Ur Barbiturates Screen NEGATIVE (NEGATIVE) 08/03/23 02:14 Ur Tricyclics Screen NEGATIVE (NEGATIVE) 08/03/23 02:14 Ur Phencyclidine Scrn NEGATIVE (NEGATIVE) 08/03/23 02:14 Ur Amphetamine Screen NEGATIVE (NEGATIVE) 08/03/23 02:14 U Methamphetamines Scrn NEGATIVE (NEGATIVE) 08/03/23 02:14 U Benzodiazepines Scrn NEGATIVE (NEGATIVE) 08/03/23 02:14 Urine Cocaine Screen NEGATIVE (NEGATIVE) 08/03/23 02:14 U Cannabinoids Screen POSITIVE (NEGATIVE) H 08/03/23 02:14 Ur Drug Screen Comment CUTOFF CONC BELOW: 08/03/23 02:14 - Procedures Procedures: Procedures EXCISION OF STOMACH, ENDO, DIAGN (09/16/17) INSERTION OF FEEDING DEVICE INTO JEJUNUM, VIA OPENING (07/22/15) INSPECTION OF LOWER INTESTINAL TRACT, ENDO (09/16/17) INTRAOPER CHOLANGIOGRAM (01/20/14) INTRODUCTION OF NUTRITIONAL INTO LOW GI, VIA OPENING (07/22/15) LAPAROSCOPIC CHOLECYSTECTOMY (01/20/14)
[2023-08-09] MEDS: ASCORBIC ACID 500 MG TABLET PO SCH (08:48)
[2023-08-09] MEDS: buPROPion SR 150 MG TABLET PO SCH ×2 (08:48→21:22)
[2023-08-09] MEDS: busPIRone 5 MG TABLET PO SCH ×2 (08:48→21:23)
[2023-08-09] MEDS: THIAMINE 100 MG TABLET PO SCH (08:48)
[2023-08-09] MEDS: DULoxetine 30 MG CAPSULE PO SCH ×2 (08:48→21:23)
[2023-08-09] MEDS: BACLOFEN 10 MG TABLET PO SCH ×2 (08:48→21:22)
[2023-08-09] MEDS: HEPARIN 5,000 UNIT/ML VIAL SUBQ SCH ×2 (08:48→21:23)
[2023-08-09] MEDS: TPN (CLINIMIX E 5/15) 2,000 ML with MULTIVITAMIN 10 ML, TRACE ELEMENTS 1 ML IV SCH ×3 (19:12)
[2023-08-09] MEDS: FAT EMULSION 20% 250 ML IV SCH (19:13)
[2023-08-09] MEDS: QUEtiapine 25 MG TABLET PO SCH (21:22)
[2023-08-10] MEDS: SODIUM CHLORIDE FLUSH 0.9% 10 ML SYRINGE IVP SCH ×3 (00:44→17:26)
[2023-08-10] MEDS: SUCRALFATE 1 GM/10 ML UDC PO SCH ×4 (06:18→21:43)
[2023-08-10 06:23] LABS: HGB - HEMOGLOBIN 9.1 g/dL (12.0-16.0); MEAN CORPUSCULAR HEMOGLOBIN 25.6 pg (27.0-31.0); MEAN CORPUSCULAR HGB CONC 31.4 g/dL (32.0-36.0); MEAN CORPUSCULAR VOLUME 81.5 fL (81.0-99.0); MEAN PLATELET VOLUME 9.6 fL (7.9-10.8); RED BLOOD COUNT 3.56 10^6/uL (4.20-5.40); RED CELL DISTRIBUTION WIDTH 23.1 % (12.0-15.0); WHITE BLOOD COUNT 6.4 x10^3/uL (4.8-10.8)
[2023-08-10 06:47] LABS: CALCIUM 9.7 mg/dL (8.5-10.3); CREATININE 0.6 mg/dL (0.6-1.3); MAGNESIUM 1.8 mg/dL (1.7-2.3); PHOSPHORUS 3.1 mg/dL (2.5-5.0); POTASSIUM 3.4 mmol/L (3.5-4.5)
[2023-08-10] MEDS: DULoxetine 30 MG CAPSULE PO SCH ×2 (08:50→21:39)
[2023-08-10] MEDS: HEPARIN 5,000 UNIT/ML VIAL SUBQ SCH ×2 (08:50→21:43)
[2023-08-10] MEDS: BACLOFEN 10 MG TABLET PO SCH ×2 (08:50→21:39)
[2023-08-10] MEDS: busPIRone 5 MG TABLET PO SCH ×2 (08:50→21:39)
[2023-08-10] MEDS: ASCORBIC ACID 500 MG TABLET PO SCH (08:50)
[2023-08-10] MEDS: buPROPion SR 150 MG TABLET PO SCH ×2 (08:50→21:39)
[2023-08-10] MEDS: THIAMINE 100 MG TABLET PO SCH (08:50)
--- NOTE | 2023-08-10 15:32 | PROVIDER PROGRESS NOTE ---
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 --Received 8 doses of IV thiamine and her symptoms have improved. --Currently on p.o. thiamine 1 mg daily. --PT/OT continue to work with patient. (2) Ataxia Conclusion/Plan: Her yqworn-nzmz-aauncs was abn in ER. She started working with PT and OT, who documented her ataxic gait Plan: As in #1 including PT and OT to cont She is far below her baseline and rehab at SNF is recommend (3) Severe protein-calorie malnutrition Conclusion/Plan: -- Case was discussed with her gastric surgeon Dr. Wil Beauchamp who told the that the patient could be transferred to [facility] hospital service. However this was turned down as the case was not noted to be complex enough. [facility] intubation were called however surgeon there felt that the PEG tube was not urgent and the patient should have several weeks of TPN. -- She is currently receiving TPN through a PICC line. (4) Iron deficiency anemia Conclusion/Plan: -- Patient has received IV dextran x 1 on 08/06. --Continue daily oral iron and vitamin C. --Transfuse hemoglobin under 7. (5) Hypokalemia Conclusion/Plan: From inadequate intake Plan: Replace, will try with liquid KCL today Follow BMP daily (6) Gastric bypass status for obesity Conclusion/Plan: She had gastric bypass in 2014. Then she had complications afterward: recurrent esoph stricture and needed 8 dilations, ongoing wt loss and malnutrition. Her upper GI scope to dilate a stricture if needed, was to be done 08/05 at another facility and has been postponed by the (7) Hypomagnesemia Conclusion/Plan: RESOLVED From inadequate intake Plan: Replace with Mg riders Follow Mg intermittently (8) N&V (nausea and vomiting) Conclusion/Plan: RESOLVED This is recurrent and likely due to repeat distal esophageal stricture, which has needed 8 dilatations in her past Plan: Anti-emetics prn Small meals/liquids Her upper GI scope has been postponed (9) Prerenal azotemia Conclusion/Plan: RESOLVED Plan: Cont new TPN I will stop peripheral iv at TKO Avoid nephrotoxins Follow BMP daily (10) Hypernatremia Conclusion/Plan: RESOLVED It was from volume depletion and iv containing NS Plan: I will stop peripheral iv at TKO Follow BMP daily - Current Meds Current Meds: Current Medications Generic Name Dose Route Start Last Admin Trade Name Freq PRN Reason Stop Dose Admin Ascorbic Acid 500 mg 08/09/23 09:00 08/10/23 08:50 Ascorbic Acid 500 Mg Tablet PO 500 mg DAILY NEETU Administration Baclofen 10 mg 08/03/23 21:00 08/10/23 08:50 Baclofen 10 Mg Tablet PO 10 mg BID NEETU Administration Bupropion HCl 150 mg 08/03/23 21:00 08/10/23 08:50 Bupropion Sr 150 Mg Tablet PO 150 mg BID NEETU Administration Buspirone HCl 10 mg 08/03/23 21:00 08/10/23 08:50 Buspirone 5 Mg Tablet PO 10 mg BID NEETU Administration Duloxetine HCl 30 mg 08/03/23 21:00 08/10/23 08:50 Duloxetine 30 Mg Capsule PO 30 mg BID NEETU Administration Heparin Sodium (Porcine) 5,000 unit 08/03/23 21:00 08/10/23 08:50 Heparin 5,000 Unit/Ml Vial SUBQ 5,000 unit BID NEETU Administration Multivitamins 10 ml/ TRACE 2,011 mls @ 50 mls/hr 08/06/23 19:00 08/09/23 19:12 ELEMENTS 1 ml/ Amino Ac/ IV 50 mls/hr Electrol/Dextrose/Calcium 1900 NEETU Administration Protocol Fat Emulsion Intravenous 250 mls @ 21 mls/hr 08/07/23 19:00 08/10/23 07:10 Intralipid 20% IV Infused Q48H NEETU Infusion Ondansetron HCl 4 mg 08/03/23 12:43 08/10/23 00:43 Ondansetron Odt 4 Mg Tablet TL 4 mg Q8HR PRN Administration Nausea / Vomiting Quetiapine Fumarate 50 mg 08/03/23 21:00 08/09/23 21:22 Quetiapine 25 Mg Tablet PO 50 mg QPM NEETU Administration Sodium Chloride 10 ml 08/03/23 17:00 08/10/23 12:06 Sodium Chloride Flush 0.9% 10 Ml Syringe IVP Not Given 0100,0900,1700 [facility] Sucralfate 1 gm 08/06/23 11:00 08/10/23 12:06 Sucralfate 1 Gm/10 Ml Udc PO 1 gm 0700,1100,1600,2200 NEETU Administration Thiamine HCl 100 mg 08/06/23 12:00 08/10/23 08:50 Thiamine 100 Mg Tablet PO 100 mg DAILY NEETU Administration - Lab Result Fish Bone Diagrams: 08/10/23 06:12 08/10/23 06:12 Subjective - Subjective Patient Reports: Feeling Better Objective Vital Signs: Vital Signs - 24 hr 08/09/23 08/10/23 08/10/23 16:00 01:39 08:00 Temperature 36.6 C 37.0 C 36.8 C Heart Rate [ 93 93 99 Brachial] Respiratory 20 16 18 Rate Blood Pressure 141/99 H 137/80 H 129/81 H [Left Brachial artery] O2 Saturation 99 98 99 Oxygen O2 Source [With Activity] Room air O2 Source [Without Activity] Room air O2 Source Room air I&O (Last 24 Hrs): Intake and Output Totals x24h 08/08/23 08/09/23 08/10/23 23:59 23:59 23:59 Intake Total 2308.333 2145.833 730 Output Total 650 800 300 Balance 3718.766 3023.833 430 General: Alert, Oriented x3 Neuro: Alert, Disoriented Cardiovascular: Regular rate, Normal S1, Normal S2 Respiratory: Chest non-tender Abdomen: Normal bowel sounds, Soft - Results Results: Laboratory Results WBC 6.4 x10^3/uL (4.8-10.8) 08/10/23 06:12 RBC 3.56 10^6/uL (4.20-5.40) L 08/10/23 06:12 Hgb 9.1 g/dL (12.0-16.0) L 08/10/23 06:12 Hct 29.0 % (37.0-47.0) L 08/10/23 06:12 MCV 81.5 fL (81.0-99.0) 08/10/23 06:12 MCH 25.6 pg (27.0-31.0) L 08/10/23 06:12 MCHC 31.4 g/dL (32.0-36.0) L 08/10/23 06:12 RDW 23.1 % (12.0-15.0) H 08/10/23 06:12 Plt Count 401 10^3/uL (130-450) 08/10/23 06:12 MPV 9.6 fL (7.9-10.8) 08/10/23 06:12 Neut # (Auto) 6.8 10^3/uL (1.5-6.6) H 08/02/23 20:30 Lymph # (Auto) 2.1 10^3/uL (1.5-3.5) 08/02/23 20:30 [place] # (Auto) 0.5 10^3/uL (0.0-1.0) 08/02/23 20:30 Eos # (Auto) 0.0 10^3/uL (0.0-0.7) 08/02/23 20:30 Baso # (Auto) 0.0 10^3/uL (0.0-0.1) 08/02/23 20:30 Absolute Nucleated RBC 0.02 x10^3/uL 08/02/23 20:30 Nucleated RBC % 0.2 /100WBC 08/02/23 20:30 Manual Slide Review Indicated 08/02/23 20:30 WBC Morphology NORMAL APPEARANCE (NORMAL) 08/02/23 20:30 Platelet Estimate NORMAL (130-450,000) (NORMAL) 08/02/23 20:30 Platelet Morphology NORMAL APPEARANCE (NORMAL) 08/02/23 20:30 RBC Morph Micro Appear 1+ ANISOCYTOSIS (NORMAL) 1+ MICROCYTOSIS (NORMAL) 08/02/23 20:30 RBC Morph Micro Appear 1+ ANISOCYTOSIS (NORMAL) 1+ MICROCYTOSIS (NORMAL) 08/02/23 20:30 PT 10.8 secs (9.9-12.6) 08/04/23 05:04 INR 1.0 (0.8-1.2) 08/04/23 05:04 Sodium 137 mmol/L (135-145) 08/10/23 06:12 Potassium 3.4 mmol/L (3.5-4.5) L 08/10/23 06:12 Chloride 102 mmol/L (101-111) 08/10/23 06:12 Carbon Dioxide 29 mmol/L (21-32) 08/10/23 06:12 Anion Gap 6.0 (6-13) 08/10/23 06:12 BUN 16 mg/dL (6-20) 08/10/23 06:12 Creatinine 0.6 mg/dL (0.6-1.3) 08/10/23 06:12 Estimated GFR (MDRD) 101 (>89) 08/10/23 06:12 Glucose 113 mg/dL (74-104) H 08/10/23 06:12 Calcium 9.7 mg/dL (8.5-10.3) 08/10/23 06:12 Phosphorus 3.1 mg/dL (2.5-5.0) 08/10/23 06:12 Magnesium 1.8 mg/dL (1.7-2.3) 08/10/23 06:12 Iron 37 ug/dL (50-212) L 08/04/23 05:04 TIBC 210 ug/dL (250-450) L 08/04/23 05:04 % Saturation 18 % (20-50) L 08/04/23 05:04 Transferrin 150 mg/dL (203-362) L 08/04/23 05:04 Total Bilirubin 0.6 mg/dL (0.2-1.0) 08/02/23 21:04 AST 16 IU/L (10-42) 08/02/23 21:04 ALT 13 IU/L (10-60) 08/02/23 21:04 Alkaline Phosphatase 92 IU/L (42-121) 08/02/23 21:04 Total Protein 6.2 g/dL (6.4-8.9) L 08/02/23 21:04 Albumin 3.5 g/dL (3.2-5.5) 08/02/23 21:04 Globulin 2.7 g/dL (2.1-4.2) 08/02/23 21:04 Albumin/Globulin Ratio 1.3 (1.0-2.2) 08/02/23 21:04 Prealbumin 10 mg/dL (17-34) L 08/08/23 05:37 Triglycerides 279 mg/dL (48-352) 08/06/23 05:19 Lipase 35 U/L (11-82) 08/02/23 21:04 Whole Bld Vitamin B1 <20.0 nmol/L (66.5-200.0) L 08/03/23 02:38 Vitamin B12 381 pg/mL (180-914) 08/04/23 05:04 Folate 11.0 ng/mL (5.90 - >24.8) 08/04/23 05:04 Urine Color YELLOW 08/04/23 09:35 Urine Clarity CLEAR (CLEAR) 08/04/23 09:35 Urine pH 6.0 PH (5.0-7.5) 08/04/23 09:35 Ur Specific [place] 1.020 (1.002-1.030) 08/04/23 09:35 Urine Protein NEGATIVE mg/dL (NEGATIVE) 08/04/23 09:35 Urine Glucose (UA) NEGATIVE mg/dL (NEGATIVE) 08/04/23 09:35 Urine Ketones 15 mg/dL (NEGATIVE) H 08/04/23 09:35 Urine Occult Blood NEGATIVE (NEGATIVE) 08/04/23 09:35 Urine Nitrite NEGATIVE (NEGATIVE) 08/04/23 09:35 Urine Bilirubin NEGATIVE (NEGATIVE) 08/04/23 09:35 Urine Urobilinogen 0.2 (NORMAL) E.U./dL (NORMAL) 08/04/23 09:35 Ur Leukocyte Esterase NEGATIVE (NEGATIVE) 08/04/23 09:35 Urine RBC 0-5 /HPF (0-5) 08/04/23 09:35 Urine WBC 0-3 /HPF (0-5) 08/04/23 09:35 Ur Squamous Epith Cells FEW Squamous (<= Few) 08/04/23 09:35 Urine Bacteria Rare /HPF (None Seen) 08/04/23 09:35 Ur Microscopic Review NOT INDICATED 08/03/23 02:14 Urine Culture Comments NOT INDICATED 08/04/23 09:35 Urine Opiates Screen NEGATIVE (NEGATIVE) 08/03/23 02:14 Ur Buprenorphine Scrn NEGATIVE (NEGATIVE) 08/03/23 02:14 Ur Oxycodone Screen NEGATIVE (NEGATIVE) 08/03/23 02:14 Urine Methadone Screen NEGATIVE (NEGATIVE) 08/03/23 02:14 Ur Barbiturates Screen NEGATIVE (NEGATIVE) 08/03/23 02:14 Ur Tricyclics Screen NEGATIVE (NEGATIVE) 08/03/23 02:14 Ur Phencyclidine Scrn NEGATIVE (NEGATIVE) 08/03/23 02:14 Ur Amphetamine Screen NEGATIVE (NEGATIVE) 08/03/23 02:14 U Methamphetamines Scrn NEGATIVE (NEGATIVE) 08/03/23 02:14 U Benzodiazepines Scrn NEGATIVE (NEGATIVE) 08/03/23 02:14 Urine Cocaine Screen NEGATIVE (NEGATIVE) 08/03/23 02:14 U Cannabinoids Screen POSITIVE (NEGATIVE) H 08/03/23 02:14 Ur Drug Screen Comment CUTOFF CONC BELOW: 08/03/23 02:14 Blood Type O POSITIVE 08/10/23 06:12 Antibody Screen NEGATIVE 08/10/23 06:12 - Procedures Procedures: Procedures EXCISION OF STOMACH, ENDO, DIAGN (09/16/17) INSERTION OF FEEDING DEVICE INTO JEJUNUM, VIA OPENING (07/22/15) INSPECTION OF LOWER INTESTINAL TRACT, ENDO (09/16/17) INTRAOPER CHOLANGIOGRAM (01/20/14) INTRODUCTION OF NUTRITIONAL INTO LOW GI, VIA OPENING (07/22/15) LAPAROSCOPIC CHOLECYSTECTOMY (01/20/14) Current Medications - Current Medications Current Medications: Active Medications Generic Name Dose Route Start Last Admin Trade Name Josephq PRN Reason Stop Dose Admin Ascorbic Acid 500 mg 08/09/23 09:00 08/10/23 08:50 Ascorbic Acid 500 Mg Tablet PO 500 mg DAILY NEETU Administration Baclofen 10 mg 08/03/23 21:00 08/10/23 08:50 Baclofen 10 Mg Tablet PO 10 mg BID NEETU Administration Bupropion HCl 150 mg 08/03/23 21:00 08/10/23 08:50 Bupropion Sr 150 Mg Tablet PO 150 mg BID NEETU Administration Buspirone HCl 10 mg 08/03/23 21:00 08/10/23 08:50 Buspirone 5 Mg Tablet PO 10 mg BID NEETU Administration Duloxetine HCl 30 mg 08/03/23 21:00 08/10/23 08:50 Duloxetine 30 Mg Capsule PO 30 mg BID NEETU Administration Heparin Sodium (Porcine) 5,000 unit 08/03/23 21:00 08/10/23 08:50 Heparin 5,000 Unit/Ml Vial SUBQ 5,000 unit BID NEETU Administration Multivitamins 10 ml/ TRACE 2,011 mls @ 50 mls/hr 08/06/23 19:00 08/09/23 19:12 ELEMENTS 1 ml/ Amino Ac/ IV 50 mls/hr Electrol/Dextrose/Calcium 1900 NEETU Administration Protocol Fat Emulsion Intravenous 250 mls @ 21 mls/hr 08/07/23 19:00 08/10/23 07:10 Intralipid 20% IV Infused Q48H NEETU Infusion Ondansetron HCl 4 mg 08/03/23 12:32 Ondansetron 4 Mg/2 Ml Vial IVP Q6HR PRN Nausea / Vomiting Ondansetron HCl 4 mg 08/03/23 12:43 08/10/23 00:43 Ondansetron Odt 4 Mg Tablet TL 4 mg Q8HR PRN Administration Nausea / Vomiting Quetiapine Fumarate 50 mg 08/03/23 21:00 08/09/23 21:22 Quetiapine 25 Mg Tablet PO 50 mg QPM NEETU Administration Sodium Chloride 10 ml 08/03/23 12:32 Sodium Chloride Flush 0.9% 10 Ml Syringe IVP PRN PRN NEEDED PER PROVIDER ORDERS Sodium Chloride 10 ml 08/03/23 17:00 08/10/23 12:06 Sodium Chloride Flush 0.9% 10 Ml Syringe IVP Not Given 0100,0900,1700 NEETU Sucralfate 1 gm 08/06/23 11:00 08/10/23 12:06 Sucralfate 1 Gm/10 Ml Udc PO 1 gm 0700,1100,1600,2200 NEETU Administration Thiamine HCl 100 mg 08/06/23 12:00 08/10/23 08:50 Thiamine 100 Mg Tablet PO 100 mg DAILY NEETU Administration Baclofen [Lioresal] 10 mg PO BID 10/15/20 Folic Acid 1 mg PO BID 10/15/20 Buspirone HCl 10 mg PO BID 08/03/23 DULoxetine [Cymbalta] 30 mg PO BID 08/03/23 Ondansetron HCl 4 mg PO Q8HR PRN 08/03/23 QUEtiapine [SEROquel] 25 mg PO QPM 08/03/23 Zolpidem [Ambien] 5 mg PO HS PRN 08/03/23 buPROPion HCL [Bupropion HCl Sr] 150 mg PO BID 08/03/23
[2023-08-10] MEDS: TPN (CLINIMIX E 5/15) 2,000 ML with MULTIVITAMIN 10 ML, TRACE ELEMENTS 1 ML IV SCH ×3 (18:49)
[2023-08-10] MEDS: QUEtiapine 25 MG TABLET PO SCH (21:39)
[2023-08-11] MEDS: SODIUM CHLORIDE FLUSH 0.9% 10 ML SYRINGE IVP SCH ×4 (00:07→23:51)
[2023-08-11] MEDS: SUCRALFATE 1 GM/10 ML UDC PO SCH ×4 (05:48→21:01)
[2023-08-11 05:58] LABS: HCT - HEMATOCRIT 23.8 % (37.0-47.0); HGB - HEMOGLOBIN 7.4 g/dL (12.0-16.0); MEAN CORPUSCULAR HEMOGLOBIN 25.3 pg (27.0-31.0); MEAN CORPUSCULAR HGB CONC 31.1 g/dL (32.0-36.0); MEAN CORPUSCULAR VOLUME 81.5 fL (81.0-99.0); MEAN PLATELET VOLUME 9.8 fL (7.9-10.8); RED BLOOD COUNT 2.92 10^6/uL (4.20-5.40); RED CELL DISTRIBUTION WIDTH 23.5 % (12.0-15.0); WHITE BLOOD COUNT 5.4 x10^3/uL (4.8-10.8)
[2023-08-11 06:09] LABS: CALCIUM 9.1 mg/dL (8.5-10.3); CREATININE 0.7 mg/dL (0.6-1.3); POTASSIUM 3.6 mmol/L (3.5-4.5)
[2023-08-11] MEDS: HEPARIN 5,000 UNIT/ML VIAL SUBQ SCH ×2 (08:10→21:02)
[2023-08-11] MEDS: THIAMINE 100 MG TABLET PO SCH (08:10)
[2023-08-11] MEDS: ASCORBIC ACID 500 MG TABLET PO SCH (08:10)
[2023-08-11] MEDS: busPIRone 5 MG TABLET PO SCH ×2 (08:10→21:01)
[2023-08-11] MEDS: BACLOFEN 10 MG TABLET PO SCH ×2 (08:10→21:01)
[2023-08-11] MEDS: buPROPion SR 150 MG TABLET PO SCH ×2 (08:10→21:01)
[2023-08-11] MEDS: DULoxetine 30 MG CAPSULE PO SCH ×2 (08:10→21:01)
--- NOTE | 2023-08-11 16:47 | PROVIDER PROGRESS NOTE ---
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 --Received 8 doses of IV thiamine and her symptoms have improved. --Currently on p.o. thiamine 1 mg daily. --PT/OT continue to work with patient. (2) Ataxia Conclusion/Plan: Her dgnibr-bdhh-evrncy was abn in ER. She started working with PT and OT, who documented her ataxic gait Plan: As in #1 including PT and OT to cont She is far below her baseline and rehab at SNF is recommend (3) Severe protein-calorie malnutrition Conclusion/Plan: -- Case was discussed with her gastric surgeon Dr. Wil Beauchamp who told the that the patient could be transferred to [facility] hospital service. However this was turned down as the case was not noted to be complex enough. [facility] intubation were called however surgeon there felt that the PEG tube was not urgent and the patient should have several weeks of TPN. -- She is currently receiving TPN through a PICC line. (4) Iron deficiency anemia Conclusion/Plan: -- Patient has received IV dextran x 1 on 08/06. --Continue daily oral iron and vitamin C. --Transfuse hemoglobin under 7. (5) Hypokalemia Conclusion/Plan: From inadequate intake Plan: Replace, will try with liquid KCL today Follow BMP daily (6) Gastric bypass status for obesity Conclusion/Plan: She had gastric bypass in 2014. Then she had complications afterward: recurrent esoph stricture and needed 8 dilations, ongoing wt loss and malnutrition. Her upper GI scope to dilate a stricture if needed, was to be done 08/05 at another facility and has been postponed by the (7) Hypomagnesemia Conclusion/Plan: RESOLVED From inadequate intake Plan: Replace with Mg riders Follow Mg intermittently (8) N&V (nausea and vomiting) Conclusion/Plan: RESOLVED This is recurrent and likely due to repeat distal esophageal stricture, which has needed 8 dilatations in her past Plan: Anti-emetics prn Small meals/liquids Her upper GI scope has been postponed (9) Prerenal azotemia Conclusion/Plan: RESOLVED Plan: Cont new TPN I will stop peripheral iv at TKO Avoid nephrotoxins Follow BMP daily (10) Hypernatremia Conclusion/Plan: RESOLVED It was from volume depletion and iv containing NS Plan: I will stop peripheral iv at TKO Follow BMP daily Dispo: Awaiting call back from surgery team in regards to next step in plan of care. - Current Meds Current Meds: Current Medications Generic Name Dose Route Start Last Admin Trade Name Freq PRN Reason Stop Dose Admin Ascorbic Acid 500 mg 08/09/23 09:00 08/11/23 08:10 Ascorbic Acid 500 Mg Tablet PO 500 mg DAILY NEETU Administration Baclofen 10 mg 08/03/23 21:00 08/11/23 08:10 Baclofen 10 Mg Tablet PO 10 mg BID NEETU Administration Bupropion HCl 150 mg 08/03/23 21:00 08/11/23 08:10 Bupropion Sr 150 Mg Tablet PO 150 mg BID NEETU Administration Buspirone HCl 10 mg 08/03/23 21:00 08/11/23 08:10 Buspirone 5 Mg Tablet PO 10 mg BID NEETU Administration Duloxetine HCl 30 mg 08/03/23 21:00 08/11/23 08:10 Duloxetine 30 Mg Capsule PO 30 mg BID NEETU Administration Heparin Sodium (Porcine) 5,000 unit 08/03/23 21:00 08/11/23 08:10 Heparin 5,000 Unit/Ml Vial SUBQ 5,000 unit BID NEETU Administration Multivitamins 10 ml/ TRACE 2,011 mls @ 50 mls/hr 08/06/23 19:00 08/10/23 22:17 ELEMENTS 1 ml/ Amino Ac/ IV 50 mls/hr Electrol/Dextrose/Calcium 1900 NEETU Infusion Protocol Fat Emulsion Intravenous 250 mls @ 21 mls/hr 08/07/23 19:00 08/10/23 07:10 Intralipid 20% IV Infused Q48H NEETU Infusion Ondansetron HCl 4 mg 08/03/23 12:43 08/10/23 00:43 Ondansetron Odt 4 Mg Tablet TL 4 mg Q8HR PRN Administration Nausea / Vomiting Quetiapine Fumarate 50 mg 08/03/23 21:00 08/10/23 21:39 Quetiapine 25 Mg Tablet PO 50 mg QPM NEETU Administration Sodium Chloride 10 ml 08/03/23 17:00 08/11/23 16:09 Sodium Chloride Flush 0.9% 10 Ml Syringe IVP 10 ml 0100,0900,1700 NEETU Administration Sucralfate 1 gm 08/06/23 11:00 08/11/23 16:09 Sucralfate 1 Gm/10 Ml Udc PO 1 gm 0700,1100,1600,2200 NEETU Administration Thiamine HCl 100 mg 08/06/23 12:00 08/11/23 08:10 Thiamine 100 Mg Tablet PO 100 mg DAILY NEETU Administration - Lab Result Fish Bone Diagrams: 08/11/23 05:27 08/11/23 05:27 - Additional Planning My Orders: My Active Orders 08/11/23 21:00 Folic Acid 1 mg PO BID Subjective - Subjective Patient Reports: Feeling Better, Resting Comfortably, No Complaints Objective Vital Signs: Vital Signs - 24 hr 08/11/23 08/11/23 08/11/23 00:00 10:24 15:44 Temperature 37.0 C 36.9 C 36.5 C Heart Rate [ 100 100 87 Brachial] Respiratory 16 18 20 Rate Blood Pressure 106/68 125/76 [Brachial artery] Blood Pressure 135/76 H [Left Brachial artery] O2 Saturation 97 99 98 Oxygen O2 Source [With Activity] Room air O2 Source [Without Activity] Room air O2 Source Room air I&O (Last 24 Hrs): Intake and Output Totals x24h 08/09/23 08/10/23 08/11/23 23:59 23:59 23:59 Intake Total 2145.833 2584.166 410 Output Total 800 350 50 Balance 9248.226 2968.166 360 Neuro: Alert, CN 2-12 Grossly Intact, Oriented Times 3 Cardiovascular: Regular rate, Normal S1, Normal S2, No murmurs Respiratory: Chest non-tender, No respiratory distress, Breath sounds nml Abdomen: Normal bowel sounds, Soft, No tenderness, No hepatospenomegaly, No masses - Results Results: Laboratory Results WBC 5.4 x10^3/uL (4.8-10.8) 08/11/23 05:27 RBC 2.92 10^6/uL (4.20-5.40) L 08/11/23 05:27 Hgb 7.4 g/dL (12.0-16.0) L 08/11/23 05:27 Hct 23.8 % (37.0-47.0) L 08/11/23 05:27 MCV 81.5 fL (81.0-99.0) 08/11/23 05:27 MCH 25.3 pg (27.0-31.0) L 08/11/23 05:27 MCHC 31.1 g/dL (32.0-36.0) L 08/11/23 05:27 RDW 23.5 % (12.0-15.0) H 08/11/23 05:27 Plt Count 343 10^3/uL (130-450) 08/11/23 05:27 MPV 9.8 fL (7.9-10.8) 08/11/23 05:27 Neut # (Auto) 6.8 10^3/uL (1.5-6.6) H 08/02/23 20:30 Lymph # (Auto) 2.1 10^3/uL (1.5-3.5) 08/02/23 20:30 [place] # (Auto) 0.5 10^3/uL (0.0-1.0) 08/02/23 20:30 Eos # (Auto) 0.0 10^3/uL (0.0-0.7) 08/02/23 20:30 Baso # (Auto) 0.0 10^3/uL (0.0-0.1) 08/02/23 20:30 Absolute Nucleated RBC 0.02 x10^3/uL 08/02/23 20:30 Nucleated RBC % 0.2 /100WBC 08/02/23 20:30 Manual Slide Review Indicated 08/02/23 20:30 WBC Morphology NORMAL APPEARANCE (NORMAL) 08/02/23 20:30 Platelet Estimate NORMAL (130-450,000) (NORMAL) 08/02/23 20:30 Platelet Morphology NORMAL APPEARANCE (NORMAL) 08/02/23 20:30 RBC Morph Micro Appear 1+ ANISOCYTOSIS (NORMAL) 1+ MICROCYTOSIS (NORMAL) 08/02/23 20:30 RBC Morph Micro Appear 1+ ANISOCYTOSIS (NORMAL) 1+ MICROCYTOSIS (NORMAL) 08/02/23 20:30 PT 10.8 secs (9.9-12.6) 08/04/23 05:04 INR 1.0 (0.8-1.2) 08/04/23 05:04 Sodium 139 mmol/L (135-145) 08/11/23 05:27 Potassium 3.6 mmol/L (3.5-4.5) 08/11/23 05:27 Chloride 105 mmol/L (101-111) 08/11/23 05:27 Carbon Dioxide 29 mmol/L (21-32) 08/11/23 05:27 Anion Gap 5.0 (6-13) L 08/11/23 05:27 BUN 19 mg/dL (6-20) 08/11/23 05:27 Creatinine 0.7 mg/dL (0.6-1.3) 08/11/23 05:27 Estimated GFR (MDRD) 84 (>89) L 08/11/23 05:27 Glucose 123 mg/dL (74-104) H 08/11/23 05:27 Calcium 9.1 mg/dL (8.5-10.3) 08/11/23 05:27 Phosphorus 3.1 mg/dL (2.5-5.0) 08/10/23 06:12 Magnesium 1.8 mg/dL (1.7-2.3) 08/10/23 06:12 Iron 37 ug/dL (50-212) L 08/04/23 05:04 TIBC 210 ug/dL (250-450) L 08/04/23 05:04 % Saturation 18 % (20-50) L 08/04/23 05:04 Transferrin 150 mg/dL (203-362) L 08/04/23 05:04 Total Bilirubin 0.6 mg/dL (0.2-1.0) 08/02/23 21:04 AST 16 IU/L (10-42) 08/02/23 21:04 ALT 13 IU/L (10-60) 08/02/23 21:04 Alkaline Phosphatase 92 IU/L (42-121) 08/02/23 21:04 Total Protein 6.2 g/dL (6.4-8.9) L 08/02/23 21:04 Albumin 3.5 g/dL (3.2-5.5) 08/02/23 21:04 Globulin 2.7 g/dL (2.1-4.2) 08/02/23 21:04 Albumin/Globulin Ratio 1.3 (1.0-2.2) 08/02/23 21:04 Prealbumin 10 mg/dL (17-34) L 08/08/23 05:37 Triglycerides 279 mg/dL (48-352) 08/06/23 05:19 Lipase 35 U/L (11-82) 08/02/23 21:04 Whole Bld Vitamin B1 <20.0 nmol/L (66.5-200.0) L 08/03/23 02:38 Vitamin B12 381 pg/mL (180-914) 08/04/23 05:04 Folate 11.0 ng/mL (5.90 - >24.8) 08/04/23 05:04 Urine Color YELLOW 08/04/23 09:35 Urine Clarity CLEAR (CLEAR) 08/04/23 09:35 Urine pH 6.0 PH (5.0-7.5) 08/04/23 09:35 Ur Specific [place] 1.020 (1.002-1.030) 08/04/23 09:35 Urine Protein NEGATIVE mg/dL (NEGATIVE) 08/04/23 09:35 Urine Glucose (UA) NEGATIVE mg/dL (NEGATIVE) 08/04/23 09:35 Urine Ketones 15 mg/dL (NEGATIVE) H 08/04/23 09:35 Urine Occult Blood NEGATIVE (NEGATIVE) 08/04/23 09:35 Urine Nitrite NEGATIVE (NEGATIVE) 08/04/23 09:35 Urine Bilirubin NEGATIVE (NEGATIVE) 08/04/23 09:35 Urine Urobilinogen 0.2 (NORMAL) E.U./dL (NORMAL) 08/04/23 09:35 Ur Leukocyte Esterase NEGATIVE (NEGATIVE) 08/04/23 09:35 Urine RBC 0-5 /HPF (0-5) 08/04/23 09:35 Urine WBC 0-3 /HPF (0-5) 08/04/23 09:35 Ur Squamous Epith Cells FEW Squamous (<= Few) 08/04/23 09:35 Urine Bacteria Rare /HPF (None Seen) 08/04/23 09:35 Ur Microscopic Review NOT INDICATED 08/03/23 02:14 Urine Culture Comments NOT INDICATED 08/04/23 09:35 Urine Opiates Screen NEGATIVE (NEGATIVE) 08/03/23 02:14 Ur Buprenorphine Scrn NEGATIVE (NEGATIVE) 08/03/23 02:14 Ur Oxycodone Screen NEGATIVE (NEGATIVE) 08/03/23 02:14 Urine Methadone Screen NEGATIVE (NEGATIVE) 08/03/23 02:14 Ur Barbiturates Screen NEGATIVE (NEGATIVE) 08/03/23 02:14 Ur Tricyclics Screen NEGATIVE (NEGATIVE) 08/03/23 02:14 Ur Phencyclidine Scrn NEGATIVE (NEGATIVE) 08/03/23 02:14 Ur Amphetamine Screen NEGATIVE (NEGATIVE) 08/03/23 02:14 U Methamphetamines Scrn NEGATIVE (NEGATIVE) 08/03/23 02:14 U Benzodiazepines Scrn NEGATIVE (NEGATIVE) 08/03/23 02:14 Urine Cocaine Screen NEGATIVE (NEGATIVE) 08/03/23 02:14 U Cannabinoids Screen POSITIVE (NEGATIVE) H 08/03/23 02:14 Ur Drug Screen Comment CUTOFF CONC BELOW: 08/03/23 02:14 Blood Type O POSITIVE 08/10/23 06:12 Antibody Screen NEGATIVE 08/10/23 06:12 - Procedures Procedures: Procedures EXCISION OF STOMACH, ENDO, DIAGN (09/16/17) INSERTION OF FEEDING DEVICE INTO JEJUNUM, VIA OPENING (07/22/15) INSPECTION OF LOWER INTESTINAL TRACT, ENDO (09/16/17) INTRAOPER CHOLANGIOGRAM (01/20/14) INTRODUCTION OF NUTRITIONAL INTO LOW GI, VIA OPENING (07/22/15) LAPAROSCOPIC CHOLECYSTECTOMY (01/20/14) Current Medications - Current Medications Current Medications: Active Medications Generic Name Dose Route Start Last Admin Trade Name Kati PRN Reason Stop Dose Admin Ascorbic Acid 500 mg 08/09/23 09:00 08/11/23 08:10 Ascorbic Acid 500 Mg Tablet PO 500 mg DAILY NEETU Administration Baclofen 10 mg 08/03/23 21:00 08/11/23 08:10 Baclofen 10 Mg Tablet PO 10 mg BID NEETU Administration Bupropion HCl 150 mg 08/03/23 21:00 08/11/23 08:10 Bupropion Sr 150 Mg Tablet PO 150 mg BID NEETU Administration Buspirone HCl 10 mg 08/03/23 21:00 08/11/23 08:10 Buspirone 5 Mg Tablet PO 10 mg BID NEETU Administration Duloxetine HCl 30 mg 08/03/23 21:00 08/11/23 08:10 Duloxetine 30 Mg Capsule PO 30 mg BID NEETU Administration Folic Acid 1 mg 08/11/23 21:00 Folic Acid 1 Mg Tablet PO BID NEETU Heparin Sodium (Porcine) 5,000 unit 08/03/23 21:00 08/11/23 08:10 Heparin 5,000 Unit/Ml Vial SUBQ 5,000 unit BID NEETU Administration Multivitamins 10 ml/ TRACE 2,011 mls @ 50 mls/hr 08/06/23 19:00 08/10/23 22:17 ELEMENTS 1 ml/ Amino Ac/ IV 50 mls/hr Electrol/Dextrose/Calcium 1900 NEETU Infusion Protocol Fat Emulsion Intravenous 250 mls @ 21 mls/hr 08/07/23 19:00 08/10/23 07:10 Intralipid 20% IV Infused Q48H NEETU Infusion Ondansetron HCl 4 mg 08/03/23 12:32 Ondansetron 4 Mg/2 Ml Vial IVP Q6HR PRN Nausea / Vomiting Ondansetron HCl 4 mg 08/03/23 12:43 08/10/23 00:43 Ondansetron Odt 4 Mg Tablet TL 4 mg Q8HR PRN Administration Nausea / Vomiting Quetiapine Fumarate 50 mg 08/03/23 21:00 08/10/23 21:39 Quetiapine 25 Mg Tablet PO 50 mg QPM NEETU Administration Sodium Chloride 10 ml 08/03/23 12:32 Sodium Chloride Flush 0.9% 10 Ml Syringe IVP PRN PRN NEEDED PER PROVIDER ORDERS Sodium Chloride 10 ml 08/03/23 17:00 08/11/23 16:09 Sodium Chloride Flush 0.9% 10 Ml Syringe IVP 10 ml 0100,0900,1700 NEETU Administration Sucralfate 1 gm 08/06/23 11:00 08/11/23 16:09 Sucralfate 1 Gm/10 Ml Udc PO 1 gm 0700,1100,1600,2200 NEETU Administration Thiamine HCl 100 mg 08/06/23 12:00 08/11/23 08:10 Thiamine 100 Mg Tablet PO 100 mg DAILY NEETU Administration Baclofen [Lioresal] 10 mg PO BID 10/15/20 Folic Acid 1 mg PO BID 10/15/20 Buspirone HCl 10 mg PO BID 08/03/23 DULoxetine [Cymbalta] 30 mg PO BID 08/03/23 Ondansetron HCl 4 mg PO Q8HR PRN 08/03/23 QUEtiapine [SEROquel] 25 mg PO QPM 08/03/23 Zolpidem [Ambien] 5 mg PO HS PRN 08/03/23 buPROPion HCL [Bupropion HCl Sr] 150 mg PO BID 08/03/23
[2023-08-11] MEDS: TPN (CLINIMIX E 5/15) 2,000 ML with MULTIVITAMIN 10 ML, TRACE ELEMENTS 1 ML IV SCH ×3 (19:10)
[2023-08-11] MEDS: FAT EMULSION 20% 250 ML IV SCH (19:10)
[2023-08-11] MEDS: QUEtiapine 25 MG TABLET PO SCH (21:01)
[2023-08-11] MEDS: FOLIC ACID 1 MG TABLET PO SCH (21:01)
[2023-08-12 05:30] LABS: HCT - HEMATOCRIT 25.4 % (37.0-47.0); HGB - HEMOGLOBIN 7.8 g/dL (12.0-16.0); MEAN CORPUSCULAR HEMOGLOBIN 26.1 pg (27.0-31.0); MEAN CORPUSCULAR HGB CONC 30.7 g/dL (32.0-36.0); MEAN CORPUSCULAR VOLUME 84.9 fL (81.0-99.0); MEAN PLATELET VOLUME 9.6 fL (7.9-10.8); RED BLOOD COUNT 2.99 10^6/uL (4.20-5.40); RED CELL DISTRIBUTION WIDTH 24.2 % (12.0-15.0); WHITE BLOOD COUNT 5.1 x10^3/uL (4.8-10.8)
[2023-08-12] MEDS: SUCRALFATE 1 GM/10 ML UDC PO SCH ×4 (06:13→21:30)
[2023-08-12] MEDS: DULoxetine 30 MG CAPSULE PO SCH ×2 (08:33→21:24)
[2023-08-12] MEDS: THIAMINE 100 MG TABLET PO SCH (08:33)
[2023-08-12] MEDS: buPROPion SR 150 MG TABLET PO SCH ×2 (08:33→21:24)
[2023-08-12] MEDS: ASCORBIC ACID 500 MG TABLET PO SCH (08:33)
[2023-08-12] MEDS: busPIRone 5 MG TABLET PO SCH ×2 (08:33→21:24)
[2023-08-12] MEDS: FOLIC ACID 1 MG TABLET PO SCH ×2 (08:33→21:24)
[2023-08-12] MEDS: BACLOFEN 10 MG TABLET PO SCH ×2 (08:33→21:24)
[2023-08-12] MEDS: HEPARIN 5,000 UNIT/ML VIAL SUBQ SCH ×2 (08:34→21:23)
[2023-08-12] MEDS: SODIUM CHLORIDE FLUSH 0.9% 10 ML SYRINGE IVP SCH ×2 (08:44→16:39)
[2023-08-12] MEDS ORDERED: FAT EMULSION 20% 250 ML IV SCH (11:04)
[2023-08-12 11:39] LABS: ALBUMIN 3.1 g/dL (3.2-5.5); ALBUMIN/GLOBULIN RATIO 1.2 (1.0-2.2); BILIRUBIN,TOTAL 0.2 mg/dL (0.2-1.0); CALCIUM 9.3 mg/dL (8.5-10.3); CREATININE 0.7 mg/dL (0.6-1.3); MAGNESIUM 1.8 mg/dL (1.7-2.3); PHOSPHORUS 3.3 mg/dL (2.5-5.0); POTASSIUM 3.7 mmol/L (3.5-4.5); TOTAL PROTEIN 5.7 g/dL (6.4-8.9)
--- NOTE | 2023-08-12 13:33 | PROVIDER PROGRESS NOTE ---
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 --Received 8 doses of IV thiamine and her symptoms have improved. --Currently on p.o. thiamine 1 mg daily. --PT/OT continue to work with patient. -- Case discussed with Alejandra Roth project manager/team coach Dr. Cruz. He recommende d a week of TPN in order to get her BMI to 25. He then recommended transfer to [facility] hopefully around August 19 for a full assessment regarding [phone] (2) Ataxia Conclusion/Plan: Her [id number]-genloz was abn in ER. She started working with PT and OT, who documented her ataxic gait Plan: As in #1 including PT and OT to cont She is far below her baseline and rehab at SNF is recommend (3) Severe protein-calorie malnutrition Conclusion/Plan: -- Case was discussed with her gastric surgeon Dr. Wil Beauchamp who told the that the patient could be transferred to [facility] hospital service. However this was turned down as the case was not noted to be complex enough. [facility] surgeon there felt that the PEG tube was not urgent and the patient should have several weeks of TPN. -- She is currently receiving TPN through a PICC line. (4) Iron deficiency anemia Conclusion/Plan: -- Patient has received IV dextran x 1 on 08/06. --Continue daily oral iron and vitamin C. --Transfuse hemoglobin under 7. (5) Hypokalemia Conclusion/Plan: --Replacing potassium as needed. (6) Gastric bypass status for obesity Conclusion/Plan: She had gastric bypass in 2014. Then she had complications afterward: recurrent esoph stricture and needed 8 dilations, ongoing wt loss and malnutrition. Her upper GI scope to dilate a stricture if needed, was to be done 08/05 at another facility and has been postponed by the (7) Hypomagnesemia Conclusion/Plan: RESOLVED From inadequate intake Plan: Replace with Mg riders Follow Mg intermittently (8) N&V (nausea and vomiting) Conclusion/Plan: RESOLVED This is recurrent and likely due to repeat distal esophageal stricture, which has needed 8 dilatations in her past Plan: Anti-emetics prn Small meals/liquids Her upper GI scope has been postponed (9) Prerenal azotemia Conclusion/Plan: RESOLVED Plan: Cont new TPN I will stop peripheral iv at TKO Avoid nephrotoxins Follow BMP daily (10) Hypernatremia Conclusion/Plan: RESOLVED It was from volume depletion and iv containing NS Plan: I will stop peripheral iv at TKO Follow BMP daily Dispo: Continue TPN. Anticipate transfer to [facility] on August 19. - Current Meds Current Meds: Current Medications Generic Name Dose Route Start Last Admin Trade Name Freq PRN Reason Stop Dose Admin Ascorbic Acid 500 mg 08/09/23 09:00 08/12/23 08:33 Ascorbic Acid 500 Mg Tablet PO 500 mg DAILY NEETU Administration Baclofen 10 mg 08/03/23 21:00 08/12/23 08:33 Baclofen 10 Mg Tablet PO 10 mg BID NEETU Administration Bupropion HCl 150 mg 08/03/23 21:00 08/12/23 08:33 Bupropion Sr 150 Mg Tablet PO 150 mg BID NEETU Administration Buspirone HCl 10 mg 08/03/23 21:00 08/12/23 08:33 Buspirone 5 Mg Tablet PO 10 mg BID NEETU Administration Duloxetine HCl 30 mg 08/03/23 21:00 08/12/23 08:33 Duloxetine 30 Mg Capsule PO 30 mg BID NEETU Administration Folic Acid 1 mg 08/11/23 21:00 08/12/23 08:33 Folic Acid 1 Mg Tablet PO 1 mg BID NEETU Administration Heparin Sodium (Porcine) 5,000 unit 08/03/23 21:00 08/12/23 08:34 Heparin 5,000 Unit/Ml Vial SUBQ 5,000 unit BID NEETU Administration Multivitamins 10 ml/ TRACE 2,011 mls @ 60 mls/hr 08/06/23 19:00 08/12/23 12:20 ELEMENTS 1 ml/ Amino Ac/ IV 60 mls/hr Electrol/Dextrose/Calcium 1900 NEETU Infusion Protocol Ondansetron HCl 4 mg 08/03/23 12:43 08/10/23 00:43 Ondansetron Odt 4 Mg Tablet TL 4 mg Q8HR PRN Administration Nausea / Vomiting Quetiapine Fumarate 50 mg 08/03/23 21:00 08/11/23 21:01 Quetiapine 25 Mg Tablet PO 50 mg QPM NEETU Administration Sodium Chloride 10 ml 08/03/23 17:00 08/12/23 08:44 Sodium Chloride Flush 0.9% 10 Ml Syringe IVP 10 ml 0100,0900,1700 NEETU Administration Sucralfate 1 gm 08/06/23 11:00 08/12/23 11:15 Sucralfate 1 Gm/10 Ml Udc PO 1 gm 0700,1100,1600,2200 NEETU Administration Thiamine HCl 100 mg 08/06/23 12:00 08/12/23 08:33 Thiamine 100 Mg Tablet PO 100 mg DAILY NEETU Administration - Lab Result Fish Bone Diagrams: 08/12/23 05:06 08/12/23 11:22 - Additional Planning My Orders: My Active Orders 08/11/23 21:00 Folic Acid 1 mg PO BID Subjective - Subjective Patient Reports: Feeling Better, Resting Comfortably, No Complaints Objective Vital Signs: Vital Signs - 24 hr 08/11/23 08/11/23 08/12/23 15:44 23:44 07:26 Temperature 36.5 C 36.4 C L 36.9 C Heart Rate [ 87 91 90 Brachial] Respiratory 20 18 20 Rate Blood Pressure 135/76 H 122/86 H 129/71 [Left Brachial artery] O2 Saturation 98 98 99 Oxygen O2 Source [With Activity] Room air O2 Source [Without Activity] Room air O2 Source Room air I&O (Last 24 Hrs): Intake and Output Totals x24h 08/10/23 08/11/23 08/12/23 23:59 23:59 23:59 Intake Total 2584.166 3897.395 2491.333 Output Total 290 708 4690 Balance 2234.166 1604.167 248.333 General: Alert, Oriented x3, Cooperative, No acute distress Neuro: Alert, CN 2-12 Grossly Intact, Oriented Times 3 Cardiovascular: Regular rate, Normal S1, Normal S2, No murmurs Respiratory: Chest non-tender, No respiratory distress, Breath sounds nml Abdomen: Normal bowel sounds, Soft, No tenderness, No hepatospenomegaly, No masses - Results Results: Laboratory Results WBC 5.1 x10^3/uL (4.8-10.8) 08/12/23 05:06 RBC 2.99 10^6/uL (4.20-5.40) L 08/12/23 05:06 Hgb 7.8 g/dL (12.0-16.0) L 08/12/23 05:06 Hct 25.4 % (37.0-47.0) L 08/12/23 05:06 MCV 84.9 fL (81.0-99.0) 08/12/23 05:06 MCH 26.1 pg (27.0-31.0) L 08/12/23 05:06 MCHC 30.7 g/dL (32.0-36.0) L 08/12/23 05:06 RDW 24.2 % (12.0-15.0) H 08/12/23 05:06 Plt Count 374 10^3/uL (130-450) 08/12/23 05:06 MPV 9.6 fL (7.9-10.8) 08/12/23 05:06 Neut # (Auto) 6.8 10^3/uL (1.5-6.6) H 08/02/23 20:30 Lymph # (Auto) 2.1 10^3/uL (1.5-3.5) 08/02/23 20:30 [place] # (Auto) 0.5 10^3/uL (0.0-1.0) 08/02/23 20:30 Eos # (Auto) 0.0 10^3/uL (0.0-0.7) 08/02/23 20:30 Baso # (Auto) 0.0 10^3/uL (0.0-0.1) 08/02/23 20:30 Absolute Nucleated RBC 0.02 x10^3/uL 08/02/23 20:30 Nucleated RBC % 0.2 /100WBC 08/02/23 20:30 Manual Slide Review Indicated 08/02/23 20:30 WBC Morphology NORMAL APPEARANCE (NORMAL) 08/02/23 20:30 Platelet Estimate NORMAL (130-450,000) (NORMAL) 08/02/23 20:30 Platelet Morphology NORMAL APPEARANCE (NORMAL) 08/02/23 20:30 RBC Morph Micro Appear 1+ ANISOCYTOSIS (NORMAL) 1+ MICROCYTOSIS (NORMAL) 08/02/23 20:30 RBC Morph Micro Appear 1+ ANISOCYTOSIS (NORMAL) 1+ MICROCYTOSIS (NORMAL) 08/02/23 20:30 PT 10.8 secs (9.9-12.6) 08/04/23 05:04 INR 1.0 (0.8-1.2) 08/04/23 05:04 Sodium 139 mmol/L (135-145) 08/12/23 11:22 Potassium 3.7 mmol/L (3.5-4.5) 08/12/23 11:22 Chloride 104 mmol/L (101-111) 08/12/23 11:22 Carbon Dioxide 31 mmol/L (21-32) 08/12/23 11:22 Anion Gap 4.0 (6-13) L 08/12/23 11:22 BUN 19 mg/dL (6-20) 08/12/23 11:22 Creatinine 0.7 mg/dL (0.6-1.3) 08/12/23 11:22 Estimated GFR (MDRD) 84 (>89) L 08/12/23 11:22 Glucose 96 mg/dL (74-104) 08/12/23 11:22 Calcium 9.3 mg/dL (8.5-10.3) 08/12/23 11:22 Phosphorus 3.3 mg/dL (2.5-5.0) 08/12/23 11:22 Magnesium 1.8 mg/dL (1.7-2.3) 08/12/23 11:22 Iron 37 ug/dL (50-212) L 08/04/23 05:04 TIBC 210 ug/dL (250-450) L 08/04/23 05:04 % Saturation 18 % (20-50) L 08/04/23 05:04 Transferrin 150 mg/dL (203-362) L 08/04/23 05:04 Total Bilirubin 0.2 mg/dL (0.2-1.0) 08/12/23 11:22 AST 25 IU/L (10-42) 08/12/23 11:22 ALT 22 IU/L (10-60) 08/12/23 11:22 Alkaline Phosphatase 84 IU/L (42-121) 08/12/23 11:22 Total Protein 5.7 g/dL (6.4-8.9) L 08/12/23 11:22 Albumin 3.1 g/dL (3.2-5.5) L 08/12/23 11:22 Globulin 2.6 g/dL (2.1-4.2) 08/12/23 11:22 Albumin/Globulin Ratio 1.2 (1.0-2.2) 08/12/23 11:22 Prealbumin 17 mg/dL (17-34) 08/12/23 11:22 Triglycerides 111 mg/dL (48-352) 08/12/23 11:22 Lipase 35 U/L (11-82) 08/02/23 21:04 Whole Bld Vitamin B1 <20.0 nmol/L (66.5-200.0) L 08/03/23 02:38 Vitamin B12 381 pg/mL (180-914) 08/04/23 05:04 Folate 11.0 ng/mL (5.90 - >24.8) 08/04/23 05:04 Urine Color YELLOW 08/04/23 09:35 Urine Clarity CLEAR (CLEAR) 08/04/23 09:35 Urine pH 6.0 PH (5.0-7.5) 08/04/23 09:35 Ur Specific [place] 1.020 (1.002-1.030) 08/04/23 09:35 Urine Protein NEGATIVE mg/dL (NEGATIVE) 08/04/23 09:35 Urine Glucose (UA) NEGATIVE mg/dL (NEGATIVE) 08/04/23 09:35 Urine Ketones 15 mg/dL (NEGATIVE) H 08/04/23 09:35 Urine Occult Blood NEGATIVE (NEGATIVE) 08/04/23 09:35 Urine Nitrite NEGATIVE (NEGATIVE) 08/04/23 09:35 Urine Bilirubin NEGATIVE (NEGATIVE) 08/04/23 09:35 Urine Urobilinogen 0.2 (NORMAL) E.U./dL (NORMAL) 08/04/23 09:35 Ur Leukocyte Esterase NEGATIVE (NEGATIVE) 08/04/23 09:35 Urine RBC 0-5 /HPF (0-5) 08/04/23 09:35 Urine WBC 0-3 /HPF (0-5) 08/04/23 09:35 Ur Squamous Epith Cells FEW Squamous (<= Few) 08/04/23 09:35 Urine Bacteria Rare /HPF (None Seen) 08/04/23 09:35 Ur Microscopic Review NOT INDICATED 08/03/23 02:14 Urine Culture Comments NOT INDICATED 08/04/23 09:35 Urine Opiates Screen NEGATIVE (NEGATIVE) 08/03/23 02:14 Ur Buprenorphine Scrn NEGATIVE (NEGATIVE) 08/03/23 02:14 Ur Oxycodone Screen NEGATIVE (NEGATIVE) 08/03/23 02:14 Urine Methadone Screen NEGATIVE (NEGATIVE) 08/03/23 02:14 Ur Barbiturates Screen NEGATIVE (NEGATIVE) 08/03/23 02:14 Ur Tricyclics Screen NEGATIVE (NEGATIVE) 08/03/23 02:14 Ur Phencyclidine Scrn NEGATIVE (NEGATIVE) 08/03/23 02:14 Ur Amphetamine Screen NEGATIVE (NEGATIVE) 08/03/23 02:14 U Methamphetamines Scrn NEGATIVE (NEGATIVE) 08/03/23 02:14 U Benzodiazepines Scrn NEGATIVE (NEGATIVE) 08/03/23 02:14 Urine Cocaine Screen NEGATIVE (NEGATIVE) 08/03/23 02:14 U Cannabinoids Screen POSITIVE (NEGATIVE) H 08/03/23 02:14 Ur Drug Screen Comment CUTOFF CONC BELOW: 08/03/23 02:14 Blood Type O POSITIVE 08/10/23 06:12 Antibody Screen NEGATIVE 08/10/23 06:12 - Procedures Procedures: Procedures EXCISION OF STOMACH, ENDO, DIAGN (09/16/17) INSERTION OF FEEDING DEVICE INTO JEJUNUM, VIA OPENING (07/22/15) INSPECTION OF LOWER INTESTINAL TRACT, ENDO (09/16/17) INTRAOPER CHOLANGIOGRAM (01/20/14) INTRODUCTION OF NUTRITIONAL INTO LOW GI, VIA OPENING (07/22/15) LAPAROSCOPIC CHOLECYSTECTOMY (01/20/14) Current Medications - Current Medications Current Medications: Active Medications Generic Name Dose Route Start Last Admin Trade Name Kati PRN Reason Stop Dose Admin Ascorbic Acid 500 mg 08/09/23 09:00 08/12/23 08:33 Ascorbic Acid 500 Mg Tablet PO 500 mg DAILY NEETU Administration Baclofen 10 mg 08/03/23 21:00 08/12/23 08:33 Baclofen 10 Mg Tablet PO 10 mg BID NEETU Administration Bupropion HCl 150 mg 08/03/23 21:00 08/12/23 08:33 Bupropion Sr 150 Mg Tablet PO 150 mg BID NEETU Administration Buspirone HCl 10 mg 08/03/23 21:00 08/12/23 08:33 Buspirone 5 Mg Tablet PO 10 mg BID NEETU Administration Duloxetine HCl 30 mg 08/03/23 21:00 08/12/23 08:33 Duloxetine 30 Mg Capsule PO 30 mg BID NEETU Administration Folic Acid 1 mg 08/11/23 21:00 08/12/23 08:33 Folic Acid 1 Mg Tablet PO 1 mg BID NEETU Administration Heparin Sodium (Porcine) 5,000 unit 08/03/23 21:00 08/12/23 08:34 Heparin 5,000 Unit/Ml Vial SUBQ 5,000 unit BID NEETU Administration Multivitamins 10 ml/ TRACE 2,011 mls @ 60 mls/hr 08/06/23 19:00 08/12/23 12:20 ELEMENTS 1 ml/ Amino Ac/ IV 60 mls/hr Electrol/Dextrose/Calcium 1900 [facility] Infusion Protocol Fat Emulsion Intravenous 250 mls @ 21 mls/hr 08/12/23 11:04 Intralipid 20% IV 1900 [facility] Ondansetron HCl 4 mg 08/03/23 12:32 Ondansetron 4 Mg/2 Ml Vial IVP Q6HR PRN Nausea / Vomiting Ondansetron HCl 4 mg 08/03/23 12:43 08/10/23 00:43 Ondansetron Odt 4 Mg Tablet TL 4 mg Q8HR PRN Administration Nausea / Vomiting Quetiapine Fumarate 50 mg 08/03/23 21:00 08/11/23 21:01 Quetiapine 25 Mg Tablet PO 50 mg QPM NEETU Administration Sodium Chloride 10 ml 08/03/23 12:32 Sodium Chloride Flush 0.9% 10 Ml Syringe IVP PRN PRN NEEDED PER PROVIDER ORDERS Sodium Chloride 10 ml 08/03/23 17:00 08/12/23 08:44 Sodium Chloride Flush 0.9% 10 Ml Syringe IVP 10 ml 0100,0900,1700 NEETU Administration Sucralfate 1 gm 08/06/23 11:00 08/12/23 11:15 Sucralfate 1 Gm/10 Ml Udc PO 1 gm 0700,1100,1600,2200 NEETU Administration Thiamine HCl 100 mg 08/06/23 12:00 08/12/23 08:33 Thiamine 100 Mg Tablet PO 100 mg DAILY NEETU Administration Baclofen [Lioresal] 10 mg PO BID 10/15/20 Folic Acid 1 mg PO BID 10/15/20 Buspirone HCl 10 mg PO BID 08/03/23 DULoxetine [Cymbalta] 30 mg PO BID 08/03/23 Ondansetron HCl 4 mg PO Q8HR PRN 08/03/23 QUEtiapine [SEROquel] 25 mg PO QPM 08/03/23 Zolpidem [Ambien] 5 mg PO HS PRN 08/03/23 buPROPion HCL [Bupropion HCl Sr] 150 mg PO BID 08/03/23
[2023-08-12] MEDS: polyethylene glycoL 3350 17 GM PACKET PO SCH (14:19)
[2023-08-12 15:56] VITALS: O2SAT 98
[2023-08-12] MEDS: TPN (CLINIMIX E 5/15) 2,000 ML with MULTIVITAMIN 10 ML, TRACE ELEMENTS 1 ML IV SCH ×3 (20:05)
--- NOTE | 2023-08-12 20:14 | XRAY Report ---
PROCEDURE: Abdomen 1 View X-Ray INDICATIONS: Constipation TECHNIQUE: One view of the abdomen acquired. COMPARISON: Abdominal radiograph 08/11/2015. FINDINGS: Surgical changes and devices: Suture material in the left abdomen. Cholecystectomy clips. Bowel: Scattered small bowel and colonic gas. No dilated loops of bowel identified. Scattered fecal r esidue. Soft tissues: No suspicious abdominal calcifications. Visualized solid organ contours appear normal in size. Bones: No suspicious bony lesions. IMPRESSION: Scattered fecal residue. Reviewed by: Paul Romeo MD on 08/12/2023 8:13 PM PST Approved by: Paul Romeo MD on 08/12/2023 8:13 PM PST Station ID: [id number]
[2023-08-12] MEDS: QUEtiapine 25 MG TABLET PO SCH (21:24)
[2023-08-13] MEDS: SODIUM CHLORIDE FLUSH 0.9% 10 ML SYRINGE IVP SCH ×2 (00:37→09:21)
[2023-08-13] MEDS: SUCRALFATE 1 GM/10 ML UDC PO SCH (06:26)
[2023-08-13 07:36] VITALS: BP 144/85
[2023-08-13] MEDS ORDERED: DOCUSATE SODIUM 250 MG CAPSULE PO SCH (09:00)
[2023-08-13] MEDS ORDERED: SENNA 8.6 MG TABLET PO SCH (09:00)
--- NOTE | 2023-08-13 09:00 | Discharge Plan ---
Discharge Plan Problem Reviewed?: Yes Disposition: 61 Swing Bed DC/Xfer Condition: Good Diet: Regular (Full liquid) Activity Restrictions: No Restrictions Shower Restrictions: No Weight Bearing: Full Weight Plan of Treatment: Plan will be to continue TPN until 08/19. Case was discussed with Dr. Cruz of gastroenterology at [facility] in [place]. He recommended continuing TPN until BMI is 25 and/or 1 week. At that point we can consider transfer to [facility] for consideration of a J-tube. [facility] transfer center is aware of this plan. She will be discharged to a swing bed until this time. No Smoking: If you smoke, Please STOP! Call for help.
--- NOTE | 2023-08-13 09:05 | DISCHARGE SUMMARY ---
Discharge Summary Discharge Date: 08/13/23 (To swing bed) Discharging Provider: Manda Code Status: Attempt Resuscitation Condition at Discharge: Good Discharge Disposition: 61 Swing Bed DC/Xfer [facility]charge [facility] - DIAGNOSES Discharge Diagnoses with Status of Each Condition: Thiamine deficiency - currently on TPN with thiamine supplements PO. Encephalopathy has resolved. FTT - Tentatively will transfer to [facility] on Aug 19 for J tube evaluation. - HPI History of Present Illness: This is a 63-year-old female who presents by ambulance. She has a history of gastric bypass surgery done ~2014 for obesity, then complications occurred with stenosis of an upper anastomosis. She has needed 7 esophageal dilatations over 8 years. She has had a PEG tube inserted in 2015 which was later removed about 2016. She has had poor nutrition for about 2 years, and on and off nausea and vomiting for many months with a 40 pound weight loss over the past 3 months. About 3 weeks ago, patient was seen in the emergency room here with complaints of nausea vomiting, her labs were normal, she received IV fluids and was discharged home. The reported that the patient is to undergo imaging of the upper abdomen in the next several days and may need reimplantation of a feeding tube. According to the , the patient's last known well was 2 days ago (08/01/2023). Later that day she became weaker, confused and was less communicative, and he needed to lift her to take her to the bathroom. Prior to that she ambulated on her own, except did "furniture surfing". Today he noticed that her "eyes were crossed" and he called an ambulance. In the ER, she was found to have inability to follow directions, speaking with a word salad, and had noticeable 6th nerve palsy, since both eyes would not cross midline. She underwent CT imaging of the head which showed no abnormalities. 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 The Neurologist recommended sending off a Thiamine blood level, admission here, and gave details on how to dose thiamine to replace it aggressively, and also recommended an MRI scan be done, since the patient has a Hx of an intracranial mass. The ER provider then spoke to me about this case. She will be admitted to the Hospitalist service for managing her neurologic deficit which is felt to be Wernicke's encephalopathy from severe thiamine d eficiency. - HOSPITAL COURSE Hospital Course: Patient is a 63-year-old female who presented to the ED due to weakness and encephalopathy/ataxia. Case was discussed with neurology who felt she had Warnicke's encephalopathy secondary to thiamine deficiency. Patient was started on IV thiamine and her symptoms improved daily. She was eventually switched to oral thiamine 100 mg daily. Patient had a significant weight loss as described above in H&P. Per her , she was scheduled for a esophageal dilatation on 08/08 but was unable to attend due to her hospitalization. She was placed on TPN due to her poor oral intake. The case was discussed with her gastric surgeon Dr. Wil Beauchamp who recommended reaching out to [facility] for a possible tube placement for feeding. A discussion was had with Dr. Cruz of gastroenterology on 08/12. He recommended continuing TPN until 08/19 and/or she had reached a BMI of 25. Ideally they would like to optimize her nutrition prior to evaluating her for a J-tube placement. He recommended reaching out again on 08/19 for transfer. Patient was moved to a swing bed to receive the remainder of her TPN. Please reach out on 08/19 to the [facility] transfer center. - ALLERGIES Allergies/Adverse Reactions: Allergies Allergy/AdvReac Type Severity Reaction Status Date / Time lisinopril Allergy cough Verified 08/03/23 02:23 ramipril Allergy Respiratory Verified 08/03/23 02:23 sumatriptan [From Imitrex] Allergy high bp Verified 08/03/23 02:23 sumatriptan succinate * Allergy high bp Verified 08/03/23 02:23 [From Imitrex] codeine AdvReac Nausea Verified 08/03/23 02:23 - MEDICATIONS Home Medications: Ambulatory Orders Medication Instructions Recorded Confirmed Rabeprazole Sodium [Aciphex] 20 mg PO BID #14 tablet. 09/16/15 08/13/23 Baclofen [Lioresal] 10 mg PO BID 10/15/20 08/13/23 Folic Acid 1 mg PO BID 10/15/20 08/13/23 Buspirone HCl 10 mg PO BID 08/03/23 08/13/23 DULoxetine [Cymbalta] 30 mg PO BID 08/03/23 08/13/23 Ondansetron HCl 4 mg PO Q8HR PRN 08/03/23 08/13/23 QUEtiapine [SEROquel] 25 mg PO QPM 08/03/23 08/13/23 Zolpidem [Ambien] 5 mg PO HS PRN 08/03/23 08/13/23 buPROPion HCL [Bupropion HCl Sr] 150 mg PO BID 08/03/23 08/13/23 - PHYSICAL EXAM AT DISCHARGE General Appearance: positive: No acute distress, Alert Respiratory: positive: Chest non-tender, No respiratory distress, Breath sounds nml Cardiovascular: positive: Regular rate & rhythm, No murmur, No gallop Abdomen: positive: Non-tender, No organomegaly, Nml bowel sounds, No distention Neurologic/Psychiatric: positive: Oriented x3, CN's nml (2-12) - LABS Result Diagrams: 08/12/23 05:06 08/12/23 11:22 - TIME SPENT Time Spent in Discharge (Minutes): 35
[2023-08-13] MEDS: ASCORBIC ACID 500 MG TABLET PO SCH (09:20)
[2023-08-13] MEDS: buPROPion SR 150 MG TABLET PO SCH (09:20)
[2023-08-13] MEDS: FOLIC ACID 1 MG TABLET PO SCH (09:20)
[2023-08-13] MEDS: busPIRone 5 MG TABLET PO SCH (09:20)
[2023-08-13] MEDS: THIAMINE 100 MG TABLET PO SCH (09:20)
[2023-08-13] MEDS: DULoxetine 30 MG CAPSULE PO SCH (09:20)
[2023-08-13] MEDS: polyethylene glycoL 3350 17 GM PACKET PO SCH (09:21)
[2023-08-13] MEDS: HEPARIN 5,000 UNIT/ML VIAL SUBQ SCH (09:21)
[2023-08-13] MEDS: BACLOFEN 10 MG TABLET PO SCH (09:21)
== END 2023-08-13 10:06 | disposition swing bed (61) | DRG 640 ==
LOC: EDUNIT# → ED 19:46 → MS2 08-03 12:32
PROVIDERS: ADMIT Internal Medicine; ATTEND Family Medicine
PROC: 02HV33Z Insertion of Infusion Device into Superior Vena Cava, Percutaneous Approach (ICD-10-PCS; principal; 2023-08-09)
DX: R41.0 Disorientation, unspecified (principal); E51.9 Thiamine deficiency, unspecified; E43 Unspecified severe protein-calorie malnutrition; R62.7 Adult failure to thrive; H49.23 Sixth [abducent] nerve palsy, bilateral; R27.0 Ataxia, unspecified; R63.4 Abnormal weight loss; R63.8 Other symptoms and signs concerning food and fluid intake; E78.00 Pure hypercholesterolemia, unspecified; F31.9 Bipolar disorder, unspecified; F41.9 Anxiety disorder, unspecified; E11.9 Type 2 diabetes mellitus without complications; K21.9 Gastro-esophageal reflux disease without esophagitis; R79.89 Other specified abnormal findings of blood chemistry; R11.2 Nausea with vomiting, unspecified; E87.6 Hypokalemia; D50.9 Iron deficiency anemia, unspecified; E51.2 Wernicke's encephalopathy; E83.42 Hypomagnesemia; Z68.25 Body mass index [BMI] 25.0-25.9, adult; Z79.899 Other long term (current) drug therapy; Z88.5 Allergy status to narcotic agent; Z88.8 Allergy status to other drugs, medicaments and biological substances; Z90.49 Acquired absence of other specified parts of digestive tract; Z98.0 Intestinal bypass and anastomosis status; Z98.84 Bariatric surgery status
CPT/HCPCS: 36415; 70450; 70496; 70498; 74018; 80048; 80053; 80306; 81001; 81003; 82607; 82746; 83540; 83690; 83735; 84100; 84134; 84425; 84466; 84478; 85025; 85027; 85610; 86850; 86900; 86901; 96361; 96365; 96367; 97116; 97162; 97166; 97530; 99285; A9270; C1751; J1750; J3411; J3490; J7040; Q0162; Q9967; 82272; 87086

== ENCOUNTER 2023-08-13 08:24 | Inpatient (IN) | payer MEDICARE, OTHER ==
[2023-08-13] MEDS ORDERED: ACETAMINOPHEN 325 MG TABLET PO PRN (09:06)
[2023-08-13] MEDS ORDERED: ONDANSETRON ODT 4 MG TABLET TL PRN (09:18)
--- NOTE | 2023-08-13 12:44 | HISTORY & PHYSICAL EXAMINATION ---
Chief Complaint - Chief Complaint Chief Complaint: Failure to thrive History of Present Illness - Admitted From Admitted From:: Med/surg - History Obtained From Records Reviewed: Yes History obtained from: Patient Exam Limitations: None - History of Present Illness HPI Comment/Other: Patient is a 63-year-old female with a past medical history of gastric bypass surgery in 2014, as well as stenosis of an upper anastomosis requiring 7 esophageal dilatations, history of PEG tube and 2016 which was removed in 2016 who presented to the ED due to complaints of encephalopathy and ataxia. 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 Patient was admitted and started on IV thiamine which improved her encephalopathy and ataxia. Due to her poor oral intake, she was started on TPN. Her disposition was discussed with the gastroenterology team at [facility] who recommended optimization of her nutrition and reassessment on August 19 for possible transfer and J-tube placement. She was discharged to a swing bed on 08/13 to continue TPN. History - Past Medical History Cardiovascular: reports: High cholesterol Respiratory: reports: None Neuro: reports: Other Endocrine/Autoimmune: reports: Type 2 diabetes GI: reports: GERD, GI bleed, Ulcers, Colon polyps, Other FACILITY SERVICE MANAGER: reports: None : reports: None HEENT: reports: None Psych: reports: Depression, Anxiety, Bipolar disorder Musculoskeletal: reports: Osteoarthritis Derm: reports: None MRSA Hx?: No - Past Surgical History General: reports: Cholecystectomy, Appendectomy, Gastric surgery /FACILITY SERVICE MANAGER: reports: section Neuro: reports: Other - Family & Social History Living Situation: With spouse/s.o. Social History Notes: She does not smoke cigarettes and does not drink alco=hol. For the past few days she has only sipped water. - Substance History Use: Uses substance without health or social issues: NONE Meds/Allgy - Home Medications Home Medications: Ambulatory Orders Medication Instructions Recorded Confirmed Rabeprazole Sodium [Aciphex] 20 mg PO BID #14 tablet. 09/16/15 08/13/23 Baclofen [Lioresal] 10 mg PO BID 10/15/20 08/13/23 Folic Acid 1 mg PO BID 10/15/20 08/13/23 Buspirone HCl 10 mg PO BID 08/03/23 08/13/23 DULoxetine [Cymbalta] 30 mg PO BID 08/03/23 08/13/23 Ondansetron HCl 4 mg PO Q8HR PRN 08/03/23 08/13/23 QUEtiapine [SEROquel] 25 mg PO QPM 08/03/23 08/13/23 Zolpidem [Ambien] 5 mg PO HS PRN 08/03/23 08/13/23 buPROPion HCL [Bupropion HCl Sr] 150 mg PO BID 08/03/23 08/13/23 - Allergies Allergies/Adverse Reactions: Allergies Allergy/AdvReac Type Severity Reaction Status Date / Time lisinopril Allergy cough Verified 08/03/23 02:23 ramipril Allergy Respiratory Verified 08/03/23 02:23 sumatriptan [From Imitrex] Allergy high bp Verified 08/03/23 02:23 sumatriptan succinate * Allergy high bp Verified 08/03/23 02:23 [From Imitrex] codeine AdvReac Nausea Verified 08/03/23 02:23 Review of Systems - Constitutional Constitutional: reports: Poor appetite, Weight loss - All Other Systems All Other Systems: reports: Reviewed and negative Prior Level of Functionality: Independent Exam - Vital Signs Reviewed Vital Signs: Yes - Physical Exam General Appearance: positive: No acute distress, Alert Respiratory: positive: Chest non-tender, No respiratory distress, Breath sounds nml Cardiovascular: positive: Regular rate & rhythm, No murmur, No gallop Skin: positive: Color nml, No rash Extremities: positive: Non-tender, Full ROM, No pedal edema Neurologic/Psychiatric: positive: Oriented x3, CN's nml (2-12), Mood/affect nml Conclusion/Plan - Problem List (1) Wernicke's syndrome Conclusion/Plan: -- Initially received IV thiamine 3 times daily for 8 doses and has now been transitioned to oral thiamine 100 mg daily. --Ataxia has improved. Continues to have some cognitive issues. (2) Severe protein-calorie malnutrition Conclusion/Plan: -- History of gastric bypass surgery and 2015. This was complicated by stenosis of an upper anastomosis which is required 7 esophageal dilatations in 10 years. Patient has also had a PEG tube in 2016 which was removed in 2017. --Unfortunately continues to have very poor nutrition and is unable to maintain her nutritional goals due to her esophageal stenosis. She was scheduled for a dilatation via EGD on 08/08 how unfortunate she was hospitalized. --Case was extensively discussed with Dr. Cruz at [facility]. Will attempt to optimize her nutritional status with TPN until August 19 and then pursue tra nsfer to [facility] for a J-tube placement. (3) Weight loss Conclusion/Plan: -- Continue full liquid diet and TPN. Daily weights will be checked. --Dietitian has been consulted for management of TPN. - Lab Results Lab results reviewed: Yes - Diagnostic Imaging Results Diagnostic Imaging Results: positive: Final report reviewed
[2023-08-13] MEDS: BACLOFEN 10 MG TABLET PO SCH (20:37)
[2023-08-13] MEDS: QUEtiapine 25 MG TABLET PO SCH (20:37)
[2023-08-13] MEDS: DULoxetine 30 MG CAPSULE PO SCH (20:38)
[2023-08-13] MEDS: busPIRone 5 MG TABLET PO SCH (20:38)
[2023-08-13] MEDS: buPROPion SR 150 MG TABLET PO SCH (20:38)
[2023-08-13] MEDS: FOLIC ACID 1 MG TABLET PO SCH (20:38)
[2023-08-13] MEDS: PANTOPRAZOLE 40 MG TABLET PO SCH (20:38)
[2023-08-14] MEDS: BACLOFEN 10 MG TABLET PO SCH ×2 (09:06→21:16)
[2023-08-14] MEDS: busPIRone 5 MG TABLET PO SCH ×2 (09:06→21:15)
[2023-08-14] MEDS: DULoxetine 30 MG CAPSULE PO SCH ×2 (09:07→21:13)
[2023-08-14] MEDS: buPROPion SR 150 MG TABLET PO SCH ×2 (09:07→21:14)
[2023-08-14] MEDS: THIAMINE 100 MG TABLET PO SCH (09:07)
[2023-08-14] MEDS: PANTOPRAZOLE 40 MG TABLET PO SCH ×2 (09:07→21:14)
[2023-08-14] MEDS: FOLIC ACID 1 MG TABLET PO SCH ×2 (09:07→21:16)
--- NOTE | 2023-08-14 11:18 | PROVIDER PROGRESS NOTE ---
Assessment/Plan - Problem List (1) Wernicke's syndrome Assessment/Plan: (1) Wernicke's syndrome Conclusion/Plan: -- Initially received IV thiamine 3 times daily for 8 doses and has now been transitioned to oral thiamine 100 mg daily. --Ataxia has improved. Continues to have some cognitive issues. (2) Severe protein-calorie malnutrition Conclusion/Plan: -- History of gastric bypass surgery and 2015. This was complicated by stenosis of an upper anastomosis which is required 7 esophageal dilatations in 10 years. Patient has also had a PEG tube in 2015 which was removed in 2016. --Unfortunately continues to have very poor nutrition and is unable to maintain her nutritional goals due to her esophageal stenosis. She was scheduled for a dilatation via EGD on 08/08 how unfortunate she was hospitalized. --Case was extensively discussed with Dr. Cruz at [facility]. Will attempt to optimize her nutritional status with TPN until August 19 and then pursue transfer to [facility] for a J-tube placement. (3) Weight loss Conclusion/Plan: -- Continue full liquid diet and TPN. Daily weights will be checked. --Dietitian has been consulted for management of TPN. Dispo: Swing bed, optimize nutrition. Transfer to [facility] on the . - Current Meds Current Meds: Current Medications Generic Name Dose Route Start Last Admin Trade Name Kati PRN Reason Stop Dose Admin Baclofen 10 mg 08/13/23 21:00 08/14/23 09:06 Baclofen 10 Mg Tablet PO 10 mg BID NEETU Administration Bupropion HCl 150 mg 08/13/23 21:00 08/14/23 09:07 Bupropion Sr 150 Mg Tablet PO 150 mg BID NEETU Administration Buspirone HCl 10 mg 08/13/23 21:00 08/14/23 09:06 Buspirone 5 Mg Tablet PO 10 mg BID NEETU Administration Duloxetine HCl 30 mg 08/13/23 21:00 08/14/23 09:07 Duloxetine 30 Mg Capsule PO 30 mg BID NEETU Administration Folic Acid 1 mg 08/13/23 21:00 08/14/23 09:07 Folic Acid 1 Mg Tablet PO 1 mg BID NEETU Administration Pantoprazole Sodium 40 mg 08/13/23 21:00 08/14/23 09:07 Pantoprazole 40 Mg Tablet PO 40 mg BID NEETU Administration Quetiapine Fumarate 25 mg 08/13/23:00 08/13/23 20:37 Quetiapine 25 Mg Tablet PO 25 mg QPM NEETU Administration Thiamine HCl 100 mg 08/14/23 09:00 08/14/23 09:07 Thiamine 100 Mg Tablet PO 100 mg DAILY NEETU Administration - Additional Planning My Orders: My Active Orders 08/13/23 Lunch Full Liquid Diet [DIET] 08/13/23 21:00 Baclofen [Lioresal] 10 mg PO BID DULoxetine [Cymbalta] 30 mg PO BID Folic Acid 1 mg PO BID Pantoprazole [Protonix] 40 mg PO BID QUEtiapine [SEROquel] 25 mg PO QPM buPROPion [Wellbutrin Sr] 150 mg PO BID busPIRone [Buspar] 10 mg PO BID 08/14/23 07:10 Blood Glucose Checks - NPO [RC] 0600,1200,1800,0000 08/14/23 07:11 Daily Weight [RC] DAILY Nutrition Consult [CONS] Routine Message to Nursing [RC] QSHIFT 08/14/23 09:00 Thiamine [Vitamin B-1] 100 mg PO DAILY 08/14/23 19:00 Fat Emulsion 20% [Intralipid 20%] 250 ml IV 1900 Multivitamin [Infuvite] 10 ml Trace Elements [Tralement Vial] 1 ml TPN (Clinimix E 5/20) [Clinimix E 5%-20% Solution] 2,000 ml IV 1900 08/15/23 05:00 CBC - COMP BLD CT W/AUTO DIFF [HEME] Routine COMPREHENSIVE METABOLIC PANEL [CHEM] Routine MAGNESIUM [CHEM] Routine PHOSPHORUS [CHEM] Routine PREALBUMIN [CHEM] Routine PT WITH INR [COAG] Routine TRIGLYCERIDES [CHEM] Routine 08/17/23 05:00 COMPREHENSIVE METABOLIC PANEL [CHEM] Routine MAGNESIUM [CHEM] Routine PHOSPHORUS [CHEM] Routine PREALBUMIN [CHEM] Routine TRIGLYCERIDES [CHEM] Routine 08/19/23 05:00 COMPREHENSIVE METABOLIC PANEL [CHEM] Routine MAGNESIUM [CHEM] Routine PHOSPHORUS [CHEM] Routine PREALBUMIN [CHEM] Routine TRIGLYCERIDES [CHEM] Routine 08/22/23 05:00 CBC - COMP BLD CT W/AUTO DIFF [HEME] Routine COMPREHENSIVE METABOLIC PANEL [CHEM] Routine MAGNESIUM [CHEM] Routine PHOSPHORUS [CHEM] Routine PREALBUMIN [CHEM] Routine PT WITH INR [COAG] Routine TRIGLYCERIDES [CHEM] Routine Subjective - Subjective Patient Reports: Resting Comfortably, No Complaints Objective Vital Signs: Vital Signs - 24 hr 08/13/23 08/13/23 08/14/23 15:26 23:40 08:20 Temperature 36.9 C 37.1 C 36.2 C L Heart Rate [ 95 100 95 Brachial] Respiratory 16 16 16 Rate Blood Pressure 150/75 H 140/85 H [Left Brachial artery] O2 Saturation 97 96 95 Oxygen O2 Source [With Activity] Room air O2 Source [Without Activity] Room air O2 Source Room air I&O (Last 24 Hrs): Intake and Output Totals x24h 08/12/23 08/13/23 08/14/23 23:59 23:59 23:59 Intake Total 400 240 Output Total 300 230 Balance 100 10 General: Alert, Oriented x3 Neuro: Alert - Procedures Procedures: Procedures EXCISION OF STOMACH, ENDO, DIAGN (09/16/17) INSERTION OF FEEDING DEVICE INTO JEJUNUM, VIA OPENING (07/22/15) INSPECTION OF LOWER INTESTINAL TRACT, ENDO (09/16/17) INTRAOPER CHOLANGIOGRAM (01/20/14) INTRODUCTION OF NUTRITIONAL INTO LOW GI, VIA OPENING (07/22/15) LAPAROSCOPIC CHOLECYSTECTOMY (01/20/14)
[2023-08-14] MEDS: FAT EMULSION 20% 250 ML IV SCH (18:52)
[2023-08-14] MEDS: TPN (CLINIMIX E 5/15) 2,000 ML with MULTIVITAMIN 10 ML, TRACE ELEMENTS 1 ML IV SCH ×3 (18:52)
[2023-08-14] MEDS ORDERED: TPN IV SCH ×3 (19:00)
[2023-08-14] MEDS ORDERED: MULTIVITAMIN IV SCH ×3 (19:00)
[2023-08-14] MEDS ORDERED: TRACE ELEMENTS IV SCH ×3 (19:00)
[2023-08-14] MEDS: QUEtiapine 25 MG TABLET PO SCH (21:14)
[2023-08-15 05:29] LABS: BASOPHILS % (AUTO) 0.6 %; EOSINOPHILS # (AUTO) 0.1 10^3/uL (0.0-0.7); EOSINOPHILS % (AUTO) 2.5 %; HCT - HEMATOCRIT 26.4 % (37.0-47.0); HGB - HEMOGLOBIN 8.1 g/dL (12.0-16.0); LYMPHOCYTES # (AUTO) 1.7 10^3/uL (1.5-3.5); LYMPHOCYTES % (AUTO) 34.6 %; MEAN CORPUSCULAR HEMOGLOBIN 26.1 pg (27.0-31.0); MEAN CORPUSCULAR HGB CONC 30.7 g/dL (32.0-36.0); MEAN CORPUSCULAR VOLUME 85.2 fL (81.0-99.0); MEAN PLATELET VOLUME 9.2 fL (7.9-10.8); MONOCYTES # (AUTO) 0.4 10^3/uL (0.0-1.0); MONOCYTES % (AUTO) 8.5 %; NEUTROPHILS # (AUTO) 2.6 10^3/uL (1.5-6.6); NEUTROPHILS % (AUTO) 53.2 %; PLT - PLATELET COUNT 407 10^3/uL (130-450); RED CELL DISTRIBUTION WIDTH 24.7 % (12.0-15.0); WHITE BLOOD COUNT 4.8 x10^3/uL (4.8-10.8)
[2023-08-15 05:57] LABS: INR 1.1 (0.8-1.2); PT - PROTHROMBIN TIME 12.1 secs (9.9-12.6)
[2023-08-15 06:13] LABS: ALBUMIN 2.9 g/dL (3.2-5.5); ALBUMIN/GLOBULIN RATIO 1.3 (1.0-2.2); BILIRUBIN,TOTAL 0.2 mg/dL (0.2-1.0); CREATININE 0.8 mg/dL (0.6-1.3); MAGNESIUM 1.9 mg/dL (1.7-2.3); PHOSPHORUS 5.4 mg/dL (2.5-5.0); POTASSIUM 3.8 mmol/L (3.5-4.5); TOTAL PROTEIN 5.1 g/dL (6.4-8.9)
[2023-08-15] MEDS: BACLOFEN 10 MG TABLET PO SCH ×2 (09:55→19:24)
[2023-08-15] MEDS: SENNA 8.6 MG TABLET PO SCH (09:55)
[2023-08-15] MEDS: DOCUSATE SODIUM 250 MG CAPSULE PO SCH (09:55)
[2023-08-15] MEDS: DULoxetine 30 MG CAPSULE PO SCH ×2 (09:55→19:24)
[2023-08-15] MEDS: busPIRone 5 MG TABLET PO SCH ×2 (09:55→19:23)
[2023-08-15] MEDS: FOLIC ACID 1 MG TABLET PO SCH ×2 (09:56→19:24)
[2023-08-15] MEDS: THIAMINE 100 MG TABLET PO SCH (09:56)
[2023-08-15] MEDS: PANTOPRAZOLE 40 MG TABLET PO SCH ×2 (09:56→19:24)
[2023-08-15] MEDS: buPROPion SR 150 MG TABLET PO SCH ×2 (09:56→19:24)
[2023-08-15] MEDS: FAT EMULSION 20% 250 ML IV SCH (19:17)
[2023-08-15] MEDS: TPN (CLINIMIX E 5/15) 2,000 ML with MULTIVITAMIN 10 ML, TRACE ELEMENTS 1 ML IV SCH ×3 (19:17)
[2023-08-15] MEDS: QUEtiapine 25 MG TABLET PO SCH (19:24)
[2023-08-16] MEDS: busPIRone 5 MG TABLET PO SCH ×2 (10:10→20:31)
[2023-08-16] MEDS: PANTOPRAZOLE 40 MG TABLET PO SCH ×2 (10:11→20:31)
[2023-08-16] MEDS: DULoxetine 30 MG CAPSULE PO SCH ×2 (10:11→20:31)
[2023-08-16] MEDS: SENNA 8.6 MG TABLET PO SCH (10:11)
[2023-08-16] MEDS: FOLIC ACID 1 MG TABLET PO SCH ×2 (10:11→20:31)
[2023-08-16] MEDS: THIAMINE 100 MG TABLET PO SCH (10:11)
[2023-08-16] MEDS: DOCUSATE SODIUM 250 MG CAPSULE PO SCH (10:11)
[2023-08-16] MEDS: buPROPion SR 150 MG TABLET PO SCH ×2 (10:11→20:31)
[2023-08-16] MEDS: BACLOFEN 10 MG TABLET PO SCH ×2 (10:12→20:31)
[2023-08-16] MEDS: TPN (CLINIMIX E 5/15) 2,000 ML with MULTIVITAMIN 10 ML, TRACE ELEMENTS 1 ML IV SCH ×3 (19:01)
[2023-08-16] MEDS: FAT EMULSION 20% 250 ML IV SCH (19:01)
[2023-08-16] MEDS: traZODone 50 MG TABLET PO SCH (20:31)
[2023-08-16] MEDS: QUEtiapine 25 MG TABLET PO SCH (20:31)
[2023-08-17 07:06] LABS: ALBUMIN 2.9 g/dL (3.2-5.5); ALBUMIN/GLOBULIN RATIO 1.3 (1.0-2.2); BILIRUBIN,TOTAL 0.2 mg/dL (0.2-1.0); CALCIUM 8.8 mg/dL (8.5-10.3); CREATININE 0.7 mg/dL (0.6-1.3); MAGNESIUM 1.9 mg/dL (1.7-2.3); PHOSPHORUS 4.8 mg/dL (2.5-5.0); POTASSIUM 3.8 mmol/L (3.5-4.5); TOTAL PROTEIN 5.1 g/dL (6.4-8.9)
[2023-08-17] MEDS: SENNA 8.6 MG TABLET PO SCH (08:52)
[2023-08-17] MEDS: BACLOFEN 10 MG TABLET PO SCH ×2 (08:52→20:52)
[2023-08-17] MEDS: busPIRone 5 MG TABLET PO SCH ×2 (08:52→20:51)
[2023-08-17] MEDS: FOLIC ACID 1 MG TABLET PO SCH (08:52)
[2023-08-17] MEDS: THIAMINE 100 MG TABLET PO SCH (08:52)
[2023-08-17] MEDS: DOCUSATE SODIUM 250 MG CAPSULE PO SCH (08:52)
[2023-08-17] MEDS: buPROPion SR 150 MG TABLET PO SCH ×2 (08:52→20:52)
[2023-08-17] MEDS: DULoxetine 30 MG CAPSULE PO SCH ×2 (08:53→20:51)
[2023-08-17] MEDS: PANTOPRAZOLE 40 MG TABLET PO SCH ×2 (08:53→20:51)
[2023-08-17] MEDS: TPN (CLINIMIX E 5/15) 2,000 ML with MULTIVITAMIN 10 ML, TRACE ELEMENTS 1 ML IV SCH ×3 (18:35)
[2023-08-17] MEDS: FAT EMULSION 20% 250 ML IV SCH (18:35)
[2023-08-17] MEDS: QUEtiapine 25 MG TABLET PO SCH (20:51)
[2023-08-17] MEDS: traZODone 50 MG TABLET PO SCH (20:51)
[2023-08-18] MEDS: PANTOPRAZOLE 40 MG TABLET PO SCH ×2 (07:59→21:11)
[2023-08-18] MEDS: busPIRone 5 MG TABLET PO SCH ×2 (07:59→21:11)
[2023-08-18] MEDS: buPROPion SR 150 MG TABLET PO SCH ×2 (07:59→21:11)
[2023-08-18] MEDS: SENNA 8.6 MG TABLET PO SCH (07:59)
[2023-08-18] MEDS: BACLOFEN 10 MG TABLET PO SCH ×2 (08:00→21:11)
[2023-08-18] MEDS: DULoxetine 30 MG CAPSULE PO SCH ×2 (08:00→21:11)
[2023-08-18] MEDS: DOCUSATE SODIUM 250 MG CAPSULE PO SCH (08:00)
[2023-08-18] MEDS: THIAMINE 100 MG TABLET PO SCH (08:01)
[2023-08-18] MEDS: FOLIC ACID 1 MG TABLET PO SCH (10:10)
[2023-08-18] MEDS: TPN (CLINIMIX E 5/15) 2,000 ML with MULTIVITAMIN 10 ML, TRACE ELEMENTS 1 ML IV SCH ×3 (19:31)
[2023-08-18] MEDS: FAT EMULSION 20% 250 ML IV SCH (19:31)
[2023-08-18] MEDS: traZODone 50 MG TABLET PO SCH (21:11)
[2023-08-18] MEDS: QUEtiapine 25 MG TABLET PO SCH (21:12)
[2023-08-19 06:02] LABS: ALBUMIN 2.9 g/dL (3.2-5.5); ALBUMIN/GLOBULIN RATIO 1.3 (1.0-2.2); BILIRUBIN,TOTAL 0.2 mg/dL (0.2-1.0); CALCIUM 8.9 mg/dL (8.5-10.3); CREATININE 0.8 mg/dL (0.6-1.3); MAGNESIUM 1.8 mg/dL (1.7-2.3); PHOSPHORUS 4.2 mg/dL (2.5-5.0); POTASSIUM 3.7 mmol/L (3.5-4.5); TOTAL PROTEIN 5.2 g/dL (6.4-8.9)
[2023-08-19] MEDS: SENNA 8.6 MG TABLET PO SCH (09:24)
[2023-08-19] MEDS: DOCUSATE SODIUM 250 MG CAPSULE PO SCH (09:24)
[2023-08-19] MEDS: DULoxetine 30 MG CAPSULE PO SCH ×2 (09:24→22:22)
[2023-08-19] MEDS: THIAMINE 100 MG TABLET PO SCH (09:24)
[2023-08-19] MEDS: BACLOFEN 10 MG TABLET PO SCH ×2 (09:24→22:22)
[2023-08-19] MEDS: PANTOPRAZOLE 40 MG TABLET PO SCH ×2 (09:24→22:22)
[2023-08-19] MEDS: buPROPion SR 150 MG TABLET PO SCH ×2 (09:24→22:22)
[2023-08-19] MEDS: FOLIC ACID 1 MG TABLET PO SCH (09:24)
[2023-08-19] MEDS: busPIRone 5 MG TABLET PO SCH ×2 (10:01→22:23)
[2023-08-19] MEDS: FAT EMULSION 20% 250 ML IV SCH (19:01)
[2023-08-19] MEDS: TPN (CLINIMIX E 5/15) 2,000 ML with MULTIVITAMIN 10 ML, TRACE ELEMENTS 1 ML IV SCH ×3 (19:01)
[2023-08-19] MEDS: QUEtiapine 25 MG TABLET PO SCH (22:22)
[2023-08-19] MEDS: traZODone 50 MG TABLET PO SCH (22:23)
[2023-08-20] MEDS: busPIRone 5 MG TABLET PO SCH ×2 (08:45→20:30)
[2023-08-20] MEDS: THIAMINE 100 MG TABLET PO SCH (08:45)
[2023-08-20] MEDS: FOLIC ACID 1 MG TABLET PO SCH (08:45)
[2023-08-20] MEDS: DOCUSATE SODIUM 250 MG CAPSULE PO SCH (08:45)
[2023-08-20] MEDS: DULoxetine 30 MG CAPSULE PO SCH ×2 (08:45→20:30)
[2023-08-20] MEDS: SENNA 8.6 MG TABLET PO SCH (08:45)
[2023-08-20] MEDS: buPROPion SR 150 MG TABLET PO SCH ×2 (08:45→20:30)
[2023-08-20] MEDS: BACLOFEN 10 MG TABLET PO SCH ×2 (08:45→20:30)
[2023-08-20] MEDS: PANTOPRAZOLE 40 MG TABLET PO SCH ×2 (08:45→20:30)
[2023-08-20] MEDS: TPN (CLINIMIX E 5/15) 2,000 ML with MULTIVITAMIN 10 ML, TRACE ELEMENTS 1 ML IV SCH ×3 (20:25)
[2023-08-20] MEDS: FAT EMULSION 20% 250 ML IV SCH (20:26)
[2023-08-20] MEDS: traZODone 50 MG TABLET PO SCH (20:30)
[2023-08-20] MEDS: QUEtiapine 25 MG TABLET PO SCH (20:30)
[2023-08-21 08:08] VITALS: O2SAT 96
[2023-08-21] MEDS: busPIRone 5 MG TABLET PO SCH (09:19)
[2023-08-21] MEDS: DULoxetine 30 MG CAPSULE PO SCH (09:19)
[2023-08-21] MEDS: FOLIC ACID 1 MG TABLET PO SCH (09:19)
[2023-08-21] MEDS: PANTOPRAZOLE 40 MG TABLET PO SCH (09:19)
[2023-08-21] MEDS: BACLOFEN 10 MG TABLET PO SCH (09:19)
[2023-08-21] MEDS: buPROPion SR 150 MG TABLET PO SCH (09:19)
[2023-08-21] MEDS: DOCUSATE SODIUM 250 MG CAPSULE PO SCH (09:19)
[2023-08-21] MEDS: THIAMINE 100 MG TABLET PO SCH (09:19)
[2023-08-21] MEDS: SENNA 8.6 MG TABLET PO SCH (09:20)
--- NOTE | 2023-08-21 15:47 | Discharge Plan ---
Discharge Plan Problem Reviewed?: Yes Disposition: 02 Transfer Acute Care Hosp No Smoking: If you smoke, Please STOP! Call for help. Follow-up with: OG LAINEZ, [Primary Care Provider] -
[2023-08-21 16:11] VITALS: BP 114/79
--- NOTE | 2023-08-21 19:29 | DISCHARGE SUMMARY ---
Discharge Summary Admit Date: 08/13/23 Discharge Date: 08/21/23 Discharging Provider: Hillary Garvin MD Primary Care Provider: Gene Lewis DO Code Status: Attempt Resuscitation Condition at Discharge: Fair Discharge Disposition: 02 Transfer Acute Care Hosp Discharge Facility Name: [facility] History of Present Illness: Patient is a 63-year-old female with a past medical history of gastric bypass surgery in 2014, as well as stenosis of an upper anastomosis requiring 8 esophageal dilatations, history of PEG tube in 2015 which was removed in 2016, who presented to the ED due to complaints of confusion and ataxia. 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 Patient was admitted and started on IV thiamine which improved her encephalopathy and ataxia. Due to her poor oral intake, she was started on TPN. Her disposition was discussed with the Gastroenterology team at [facility], who recommended optimization of her nutrition and reassessment on August 19, 2023 for possible transfer and J-tube placement. She was discharged from Inpt status, and is being admitted to a Swing bed on 08/13/23 to continue TPN. - HOSPITAL COURSE Hospital Course: (1) Wernicke's syndrome This was the Neurologist's impression when she had presented with obtundation, was then admitte and had finished high dose 500 mg iv Thiamine infusions as an Inpatient, which improved her neurologic status, before coming to "Swing Bed" status (SNF at [facility]) now. 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 She had PT and OT rehab while in Swing Bed status and improved. (2) Severe protein-calorie malnutrition The GI specialist at [facility], Dr Cruz, wanted her to have TPN for improving her nutrition, before transferring to [facility]. Thus she had daily TPN infused via a PICC line until day of transfer. She only tolerated a full liquid diet orally. (3) Gastric bypass status for obesity She had gastric bypass in 2014. Then she had complications afterward: recurrent esoph stricture and needed 8 dilations, ongoing wt loss and malnutrition. She had a J tube many years ago, and needs that implanted again, but it was not able to be performed at [facility], or here at this Critical Access Hosp, and she was turned down to have that at [facility], but was accepted by GI at [facility] to undergo a feeding tube implant, for which she was transferred to them on 08/21/23, in stable condition. (4) Esophageal stricture She has needed 8 dilations for esophageal strictures after the gastric bypass surgery, and no provider at this Critical Access Hosp could do upper endoscopy since no on does dilations here. She had been accepted by GI at [facility] to undergo EGD, for which she was transferred to them on 08/21/23, in stable condition. - ALLERGIES Allergies/Adverse Reactions: Allergies Allergy/AdvReac Type Severity Reaction Status Date / Time lisinopril Allergy cough Verified 08/03/23 02:23 ramipril Allergy Respiratory Verified 08/03/23 02:23 sumatriptan [From Imitrex] Allergy high bp Verified 08/03/23 02:23 sumatriptan succinate * Allergy high bp Verified 08/03/23 02:23 [From Imitrex] codeine AdvReac Nausea Verified 08/03/23 02:23 - MEDICATIONS Home Medications: Ambulatory Orders Medication Instructions Recorded Confirmed Rabeprazole Sodium [Aciphex] 20 mg PO BID #14 tablet. 09/16/15 08/13/23 Baclofen [Lioresal] 10 mg PO BID 10/15/20 08/13/23 Folic Acid 1 mg PO BID 10/15/20 08/13/23 Buspirone HCl 10 mg PO BID 08/03/23 08/13/23 DULoxetine [Cymbalta] 30 mg PO BID 08/03/23 08/13/23 Ondansetron HCl 4 mg PO Q8HR PRN 08/03/23 08/13/23 QUEtiapine [SEROquel] 25 mg PO QPM 08/03/23 08/13/23 Zolpidem [Ambien] 5 mg PO HS PRN 08/03/23 08/13/23 buPROPion HCL [Bupropion HCl Sr] 150 mg PO BID 08/03/23 08/13/23 - PHYSICAL EXAM AT DISCHARGE General Appearance: positive: No acute distress, Alert Eyes Bilateral: positive: Normal inspection, EOMI ENT: positive: No signs of dehydration, Other (Disheveled, poor dentition) Neck: positive: Nml inspection, No JVD Respiratory: positive: No respiratory distress Cardiovascular: positive: Regular rate & rhythm, No murmur Abdomen: positive: Non-tender, Nml bowel sounds Skin: positive: Warm, Dry Extremities: positive: Non-tender, No pedal edema Neurologic/Psychiatric: positive: Oriented x3, CN's nml (2-12), Other (Ataxic gait) - LABS Result Diagrams: 08/15/23 04:51 08/19/23 04:46 - FOLLOW UP Follow Up: See PCP after discharged from hospitalization at [facility]. - TIME SPENT Time Spent in Discharge (Minutes): 40
--- NOTE | 2023-08-24 17:34 | PROVIDER PROGRESS NOTE ---
Assessment/Plan - Problem List (1) Wernicke's syndrome Assessment/Plan: (1) Wernicke's syndrome Conclusion/Plan: -- Initially received IV thiamine 3 times daily for 8 doses and has now been transitioned to oral thiamine 100 mg daily. --Ataxia has improved. Continues to have some cognitive issues. (2) Severe protein-calorie malnutrition Conclusion/Plan: -- History of gastric bypass surgery and 2015. This was complicated by stenosis of an upper anastomosis which is required 7 esophageal dilatations in 10 years. Patient has also had a PEG tube in 2015 which was removed in 2016. --Unfortunately continues to have very poor nutrition and is unable to maintain her nutritional goals due to her esophageal stenosis. She was scheduled for a dilatation via EGD on 08/08 how unfortunate she was hospitalized. --Case was extensively discussed with Dr. Cruz at [facility]. Will attempt to optimize her nutritional status with TPN until August 19 and then pursue transfer to [facility] for a J-tube placement. (3) Weight loss Conclusion/Plan: -- Continue full liquid diet and TPN. Daily weights will be checked. --Dietitian has been consulted for management of TPN. Dispo: Swing bed, optimize nutrition. Transfer to [facility] on the . - Lab Result Fish Bone Diagrams: 08/15/23 04:51 08/19/23 04:46 Subjective - Subjective Patient Reports: No Complaints Objective Vital Signs: Oxygen O2 Source [With Activity] Room air O2 Source [Without Activity] Room air O2 Source Room air General: Alert, Oriented x3, Cooperative Neuro: Alert, CN 2-12 Grossly Intact - Results Results: Laboratory Results WBC 4.8 x10^3/uL (4.8-10.8) 08/15/23 04:51 RBC 3.10 10^6/uL (4.20-5.40) L 08/15/23 04:51 Hgb 8.1 g/dL (12.0-16.0) L 08/15/23 04:51 Hct 26.4 % (37.0-47.0) L 08/15/23 04:51 MCV 85.2 fL (81.0-99.0) 08/15/23 04:51 MCH 26.1 pg (27.0-31.0) L 08/15/23 04:51 MCHC 30.7 g/dL (32.0-36.0) L 08/15/23 04:51 RDW 24.7 % (12.0-15.0) H 08/15/23 04:51 Plt Count 407 10^3/uL (130-450) 08/15/23 04:51 MPV 9.2 fL (7.9-10.8) 08/15/23 04:51 Neut # (Auto) 2.6 10^3/uL (1.5-6.6) 08/15/23 04:51 Lymph # (Auto) 1.7 10^3/uL (1.5-3.5) 08/15/23 04:51 Rush # (Auto) 0.4 10^3/uL (0.0-1.0) 08/15/23 04:51 Eos # (Auto) 0.1 10^3/uL (0.0-0.7) 08/15/23 04:51 Baso # (Auto) 0.0 10^3/uL (0.0-0.1) 08/15/23 04:51 Absolute Nucleated RBC 0.00 x10^3/uL 08/15/23 04:51 Nucleated RBC % 0.0 /100WBC 08/15/23 04:51 PT 12.1 secs (9.9-12.6) 08/15/23 04:51 INR 1.1 (0.8-1.2) 08/15/23 04:51 Sodium 138 mmol/L (135-145) 08/19/23 04:46 Potassium 3.7 mmol/L (3.5-4.5) 08/19/23 04:46 Chloride 107 mmol/L (101-111) 08/19/23 04:46 Carbon Dioxide 26 mmol/L (21-32) 08/19/23 04:46 Anion Gap 5.0 (6-13) L 08/19/23 04:46 BUN 30 mg/dL (6-20) H 08/19/23 04:46 Creatinine 0.8 mg/dL (0.6-1.3) 08/19/23 04:46 Estimated GFR (MDRD) 72 (>89) L 08/19/23 04:46 Glucose 100 mg/dL (74-104) 08/19/23 04:46 Calcium 8.9 mg/dL (8.5-10.3) 08/19/23 04:46 Phosphorus 4.2 mg/dL (2.5-5.0) 08/19/23 04:46 Magnesium 1.8 mg/dL (1.7-2.3) 08/19/23 04:46 Total Bilirubin 0.2 mg/dL (0.2-1.0) 08/19/23 04:46 AST 14 IU/L (10-42) 08/19/23 04:46 ALT 13 IU/L (10-60) 08/19/23 04:46 Alkaline Phosphatase 63 IU/L (42-121) 08/19/23 04:46 Total Protein 5.2 g/dL (6.4-8.9) L 08/19/23 04:46 Albumin 2.9 g/dL (3.2-5.5) L 08/19/23 04:46 Globulin 2.3 g/dL (2.1-4.2) 08/19/23 04:46 Albumin/Globulin Ratio 1.3 (1.0-2.2) 08/19/23 04:46 Prealbumin 23 mg/dL (17-34) 08/19/23 04:46 Triglycerides 108 mg/dL (48-352) 08/19/23 04:46 - Procedures Procedures: Procedures EXCISION OF STOMACH, ENDO, DIAGN (09/16/17) INSERTION OF FEEDING DEVICE INTO JEJUNUM, VIA OPENING (07/22/15) INSERTION OF INFUSION DEV INTO SUP VENA CAVA, PERC APPROACH (08/03/23) INSPECTION OF LOWER INTESTINAL TRACT, ENDO (09/16/17) INTRAOPER CHOLANGIOGRAM (01/20/14) INTRODUCTION OF NUTRITIONAL INTO LOW GI, VIA OPENING (07/22/15) LAPAROSCOPIC CHOLECYSTECTOMY (01/20/14)
== END 2023-08-21 17:00 | disposition short-term general hospital (02) | DRG 640 ==
LOC: MS2 09:06
PROVIDERS: ADMIT Family Medicine; ATTEND Internal Medicine
PROC: 3E0436Z Introduction of Nutritional Substance into Central Vein, Percutaneous Approach (ICD-10-PCS; principal; 2023-08-13)
DX: E51.2 Wernicke's encephalopathy (principal); E43 Unspecified severe protein-calorie malnutrition; K91.2 Postsurgical malabsorption, not elsewhere classified; Z98.84 Bariatric surgery status; K22.2 Esophageal obstruction; E11.9 Type 2 diabetes mellitus without complications; F31.9 Bipolar disorder, unspecified; F41.9 Anxiety disorder, unspecified; R63.4 Abnormal weight loss; Z68.21 Body mass index [BMI] 21.0-21.9, adult; R26.0 Ataxic gait; R62.7 Adult failure to thrive
CPT/HCPCS: 36415; 80053; 83735; 84100; 84134; 84478; 85025; 85610

== ENCOUNTER 2023-09-09 16:42 | Emergency (ER) | payer MEDICARE, OTHER ==
[2023-09-09 16:53] VITALS: BP 130/80; O2SAT 100
--- NOTE | 2023-09-09 17:02 | ED Physician Documentation ---
History of Present Illness - Stated complaint Stated Complaint: ABD PX/GI - Chief complaint Chief Complaint: Abd Pain - History obtained from History obtained from: Patient - History of Present Illness Timing: How many days ago (several days) Pain level max: 6 Pain level now: 6 - Additonal information Additional information: 63-year-old female presents to the emergency department complaint of constipation for the past several days. No nausea or vomiting. No fevers. No chills. She states that she took a laxative last night, but has not had a large bowel movement today, states that she has "hard rocks" in her rectum. Nothing makes it better or worse. No abdominal pain but is having rectal pain. 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 09/16/15 08/13/23 Baclofen [Lioresal] 10 mg PO BID 10/15/20 08/13/23 Folic Acid 1 mg PO BID 10/15/20 08/13/23 Buspirone HCl 10 mg PO BID 08/03/23 08/13/23 DULoxetine [Cymbalta] 30 mg PO BID 08/03/23 08/13/23 Ondansetron HCl 4 mg PO Q8HR PRN 08/03/23 08/13/23 QUEtiapine [SEROquel] 25 mg PO QPM 08/03/23 08/13/23 Zolpidem [Ambien] 5 mg PO HS PRN 08/03/23 08/13/23 buPROPion HCL [Bupropion HCl Sr] 150 mg PO BID 08/03/23 08/13/23 - Allergies Allergies/Adverse Reactions: Allergies Allergy/AdvReac Type Severity Reaction Status Date / Time lisinopril Allergy cough Verified 09/09/23 16:45 ramipril Allergy Respiratory Verified 09/09/23 16:45 sumatriptan [From Imitrex] Allergy high bp Verified 09/09/23 16:45 sumatriptan succinate * Allergy high bp Verified 09/09/23 16:45 [From Imitrex] codeine AdvReac Nausea Verified 09/09/23 16:45 - Social History Does the pt smoke?: No Smoking Status: Never smoker Does the pt drink ETOH?: No Does the pt have substance abuse?: No - Immunizations Immunizations are current?: Yes PD ED PE NORMAL - Vitals Vital signs reviewed: Yes - General General: Alert and oriented X 3, No acute distress - HEENT HEENT: Moist mucous membranes - Neck Neck: Supple, no meningeal sign - Cardiac Cardiac: RRR, Strong equal pulses - Respiratory Respiratory: No respiratory distress, Clear bilaterally - Abdomen Abdomen: Soft, Non tender, Non distended - Back Back: No CVA TTP, No spinal TTP - Derm Derm: Warm and dry - Extremities Extremities: No edema, No calf tenderness / cord - Neuro Neuro: Alert and oriented X 3 - Psych Psych: Normal mood, Normal affect Results - Vitals Vitals: Vital Signs - 24 hr 09/09/23 16:46 Temperature 36.8 C Heart Rate 100 Respiratory 20 Rate Blood Pressure 130/80 O2 Saturation 100 Oxygen O2 Source [With Activity] Room air O2 Source [Without Activity] Room air O2 Source Room air PD Medical Decision Making - ED course Complexity details: reviewed results, re-evaluated patient, considered differential, d/w patient ED course: Patient received enemas x 2 in the emergency department. Had a good bowel movement, all pain resolved. Patient feels much better. She will follow-up with her doctor for further care. Tolerating p.o. without difficulty. No evidence of bowel obstruction. No indication for labs or imaging at this time. Patient is well-appearing, nontoxic. Patient counseled regarding signs and symptoms for which I believe and urgent re-evaluation would be necessary. Patient with good understanding of and agreement to plan and is comfortable going home at this time This document was made in part using voice recognition software. While efforts are made to proofread this document, sound alike and grammatical errors may occur. Departure - Departure Disposition: 01 Home, Self Care Clinical Impression: Constipation Qualifiers: Constipation type: unspecified constipation type Qualified Code(s): K59.00 - Constipation, unspecified Instructions: ED Constipation Follow-Up: GILBERTO LAINEZ DO [Primary Care Provider] - Comments: Please follow-up with your doctor for further care. Please return if you worsen. You can take a stool softener daily such as senna or Colace. These are available [id number]. Please make sure you are drinking plenty of water. Forms: PCP List Discharge Date/Time: 09/09/23 18:55
[2023-09-09] MEDS: MINERAL OIL ENEMA 133 ML BOTTLE RC STA (17:12)
[2023-09-09] MEDS: SALINE ENEMA 133 ML BOTTLE RC STA (17:42)
[2023-09-09] MEDS: MORPHINE 2 MG/ML CARPUJECT IM STA (17:42)
== END 2023-09-09 18:55 | disposition home or self-care (01) ==
LOC: ED 16:42
DX: K59.00 Constipation, unspecified (principal); E11.9 Type 2 diabetes mellitus without complications
CPT/HCPCS: 96372; 99283; A9270